=== PATIENT | male | born 1945 | race Caucasian/White ===

== ENCOUNTER → 2017-12-10 09:51 | Outpatient (CLI) | payer MEDICARE, SELFPAY ==
--- NOTE | 2017-12-10 09:57 | CT_ITS ---
CT lung screening EXAM: CT LUNG LOW DOSE WO CONTRAST COMPARISON: 11/09/2016 HISTORY: 71 year old male with greater than 30 pack-year smoking history, asymptomatic ITS.REASON: HX TOBACCO USE ORDERING PHYSICIAN: Morris Hines MD PATIENT AGE: 71 years TECHNIQUE: The exam was performed on a GE Light Speed [address] scanner using 2.90 mGy CTDI. A low dose helical CT CHEST was performed on a multi-detector scanner. All CT scans at the facility use one or more dose reduction, viz: automated exposure control; ma/kV adjustment per patient size (including targeted exams where dose is matched to indication; i.e. head); or iterative reconstruction technique. The LDCT was performed in a facility that meets the criteria for the screening program. Data regarding this exam was submitted to ACR which is an approved registry. The order for this exam indicates that it came as a result of a lung cancer screening counseling shard decision-making visit that included all the elements required of such a visit including smoking cessation. The radiologist interpreting this exam meets the CMS criteria for the LDCT lung cancer screening program. The exam is reported using the Lung-RADS classification scale and reported to the ACR registry. NOTE: This study was performed for the specific purposes of lung cancer screening and is not an alternative to diagnostic chest CT. RADIATION DOSE: CTDI vol(CT dose Index-volume) = 2.90mG DLP (Dose Length Product) = 101.48 mGcm FINDINGS: Centrilobular emphysema. Chronic irregular opacity left upper lobe stable and may represent postinflammatory fibrotic change. Calcified granuloma left lower lobe. No change 7 mm left upper lobe nodule. There is mild diffuse bronchial thickening. Decreased transverse diameter of the trachea once again noted and may represent tracheomalacia. Prior median sternotomy. Severe coronary artery calcifications. Gynecomastia. There is gas present throughout the length of the esophagus nonspecific but can be seen with reflux or distal obstruction versus esophageal dysmotility. IMPRESSION: 1. Lung RADS Category: 2, benign 2. 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 Gas within esophagus nonspecific but could be seen with dysmotility, distal obstruction, or reflux RECOMMENDATIONS: 12 month LDCT follow-up
--- NOTE | 2017-12-10 09:58 | US_ITS ---
US aorta HISTORY: ITS.REASON: HTN, HX TOBACCO USE, SCREENING FOR AA FINDINGS: The study is somewhat technically difficult due to patient's body habitus. No obvious aortic aneurysm apparent. The abdominal aorta measures approximately 2.5 cm at the level the umbilicus. Proximal common iliacs are unremarkable. IMPRESSION: No evidence of abdominal aortic aneurysm
== END ==
PROVIDERS: PCP Family Medicine; Visit Provider Family Medicine
DX: Z12.2 Encounter for screening for malignant neoplasm of respiratory organs (principal); Z87.891 Personal history of nicotine dependence; Z13.6 Encounter for screening for cardiovascular disorders; I10 Essential (primary) hypertension
CPT/HCPCS: 76770

== ENCOUNTER 2018-02-25 09:52 | Outpatient (RCR) | payer MEDICARE, SELFPAY | END 2018-11-27 13:22 | disposition home or self-care (01) | LOC: PT 09:52 | PROVIDERS: Visit Provider Internal Medicine | DX: Z95.5 Presence of coronary angioplasty implant and graft (principal) ==

== ENCOUNTER 2019-01-24 12:42 | Emergency (ER) | payer MEDICARE, SELFPAY ==
--- NOTE | 2019-01-24 12:48 | XR_ITS ---
XR chest portable HISTORY: Lumbar smoker, heart disease ITS.REASON: weak ORDERING PHYSICIAN: Tang Powers MD PATIENT AGE: 73 years COMPARISON: None FINDINGS: Prior CABG. Normal heart size. Lungs are clear of acute infiltrate. There is COPD. Nodularity noted in the right upper lobe overlying the third rib anteriorly at 12 x 8 mm possibly due to overlapping vessel. Upright PA and lateral chest suggested for further evaluation. There are mild fibrotic changes in the left lung base. No acute bony findings. IMPRESSION: COPD, prior CABG. Right suprahilar nodule versus overlapping vessel which may be better evaluated with upright PA and lateral chest
[2019-01-24 12:50] VITALS: BP 85/43; PULSE 89; O2SAT 98
--- NOTE | 2019-01-24 12:51 | HMH.EDGENADL ---
ED Disposition Clinical Impression: Melena Hypotension Qualifiers: Hypotension type: unspecified hypotension type Qualified Code(s): I95.9 - Hypotension, unspecified Disposition: Xfer Short-Term Hosp Condition on Discharge: Serious Referrals: Morris Hines MD [Primary Care Provider] - - Critical Care Critical Care Time: No Attestation: On , the high probability of a clinically significant, sudden or life threatening deterioration of the following system(s) required my full and direct attention, intervention and personal management. The time I documented below is in addition to time spent performing reported procedures but includes the following listed in this critical care notation. Medical Decision Making - Medical Records Medical records reviewed: Yes: I reviewed the patient's medical records. - Miki Inquiry Pt receiving controlled substance: No Vital Signs: 01/24/19 12:50 01/24/19 13:18 Temperature 97.7 F Temperature Source Oral Pulse Rate [Right Brachial] 89 89 Respiratory Rate 20 Blood Pressure [Right Arm] 85/43 L 73/38 L Blood Pressure Mean [Right Arm] 57 49 Blood Pressure Source [Right Arm] Automatic Cuff Blood Pressure Position [Right Arm] Sitting 02 Sat by Pulse Oximetry 98 98 Oxygen Delivery Method Room Air - Lab Data Lab results reviewed: Yes: I reviewed the patient's lab results. Lab Results 01/24/19 12:35: WBC 11.8 H, RBC 3.33 L, Hgb 10.8 L, Hct 31.3 L, MCV 93.9, MCH 32.2 H, MCHC 34.4, RDW 12.4, Plt Count 306, MPV 8.5, Neut % (Auto) 77.7, Lymph % (Auto) 16.5, [place] % (Auto) 4.7, Eos % (Auto) 0.5, Baso % (Auto) 0.5, Neut # (Auto) 9.1 H, Lymph # (Auto) 2.0, [place] # (Auto) 0.6, Eos # (Auto) 0.1, Baso # (Auto) 0.1 01/24/19 12:35: Sodium 131 L, Potassium 5.7 H, Chloride 95 L, Carbon Dioxide 29, Anion Gap 12.7, BUN 57 H, Creatinine 2.16 H, Estimated Creat Clear 38, Estimated GFR 30 L, Est GFR ( Amer) 36 L, Glucose 169 H, Calcium 8.9, Total Bilirubin 0.3, AST 12 L, ALT 24, Alkaline Phosphatase 55, Troponin I < 0.02, Total Protein 6.7, Albumin 3.5, Globulin 3.2, Albumin/Globulin Ratio 1.1, Lipase 314 01/24/19 12:35: PT 10.5, INR 1.01 01/24/19 12:35: Stool Occult Blood Positive A 01/24/19 13:20: Blood Type B Positive, Antibody Screen Negative, Crossmatch (AHG) See Detail 01/24/19 13:46: Lactate 2.7 H Result diagrams: 01/24/19 12:35 01/24/19 12:35 Orders (Tests/Meds): ED MEDICATIONS Generic Name Dose Route Start Last Admin Trade Name Freq PRN Reason Stop Dose Admin Sodium Chloride 250 mls @ 25 mls/hr 01/24/19 13:45 01/24/19 14:18 Sod Chlor 0.9% 250ml Bag IV 01/25/19 13:44 25 mls/hr .Q10H HUSSEIN Administration Norepinephrine Bitartrate 8 mg 258 mls @ 3.87 mls/hr 01/24/19 13:45 01/24/19 13:55 / Dextrose IV 02/23/19 13:44 2 mcg/min .Q24H HUSSEIN 3.87 mls/hr Administration Protocol 2 MCG/MIN Discontinued Medications Generic Name Dose Route Start Last Admin Trade Name Freq PRN Reason Stop Dose Admin Sodium Chloride 1,000 mls @ 999 mls/hr 01/24/19 13:00 01/24/19 13:24 Sod Chlor 0.9% 1000ml Bag IV 01/24/19 14:00 999 mls/hr .Q1H1M HUSSEIN Administration Pantoprazole Sodium 40 mg 01/24/19 12:49 01/24/19 13:44 Protonix 40mg Vial IV 01/24/19 12:50 40 mg ONCE ONE Administration Sodium Chloride 8 ml 01/24/19 12:49 01/24/19 13:44 Saline Flush 10ml Syringe IV 01/24/19 12:50 8 ml ONCE ONE Administration ORDERS Category Date Time Status Transfuse RBC's [Red Blood Cells] Stat BBK 01/24/19 13:20 Results Type and Screen Stat K 01/24/19 13:20 Results Urinalysis and Microscopic Stat Lab 01/24/19 12:49 Ordered - Radiology Data #1 Image(s): Chest Image Reviewed: Yes I have reviewed radiologist's interpretation Preliminary Findings: Abnormal (right lung nodule) - ECG Data Tracing #1 I reviewed this ECG and interpreted as documented below: Normal Sinus Rhythm: Yes (no stemi) Medical Decision Na
--- NOTE | 2019-01-24 12:54 | ED_ITS ---
ED Disposition Clinical Impression: Melena Hypotension Qualifiers: Hypotension type: unspecified hypotension type Qualified Code(s): I95.9 - Hypotension, unspecified Disposition: Xfer Short-Term Hosp Condition on Discharge: Serious Referrals: Morris Hines MD [Primary Care Provider] - - Critical Care Critical Care Time: No Attestation: On , the high probability of a clinically significant, sudden or life threatening deterioration of the following system(s) required my full and direct attention, intervention and personal management. The time I documented below is in addition to time spent performing reported procedures but includes the following listed in this critical care notation. Medical Decision Making - Medical Records Medical records reviewed: Yes: I reviewed the patient's medical records. - Miki Inquiry Pt receiving controlled substance: No Vital Signs: 01/24/19 12:50 01/24/19 13:18 Temperature 97.7 F Temperature Source Oral Pulse Rate [Right Brachial] 89 89 Respiratory Rate 20 Blood Pressure [Right Arm] 85/43 L 73/38 L Blood Pressure Mean [Right Arm] 57 49 Blood Pressure Source [Right Arm] Automatic Cuff Blood Pressure Position [Right Arm] Sitting 02 Sat by Pulse Oximetry 98 98 Oxygen Delivery Method Room Air - Lab Data Lab results reviewed: Yes: I reviewed the patient's lab results. Lab Results 01/24/19 12:35: WBC 11.8 H, RBC 3.33 L, Hgb 10.8 L, Hct 31.3 L, MCV 93.9, MCH 32.2 H, MCHC 34.4, RDW 12.4, Plt Count 306, MPV 8.5, Neut % (Auto) 77.7, Lymph % (Auto) 16.5, [place] % (Auto) 4.7, Eos % (Auto) 0.5, Baso % (Auto) 0.5, Neut # (Auto) 9.1 H, Lymph # (Auto) 2.0, [place] # (Auto) 0.6, Eos # (Auto) 0.1, Baso # (Auto) 0.1 01/24/19 12:35: Sodium 131 L, Potassium 5.7 H, Chloride 95 L, Carbon Dioxide 29, Anion Gap 12.7, BUN 57 H, Creatinine 2.16 H, Estimated Creat Clear 38, Estimated GFR 30 L, Est GFR ( Amer) 36 L, Glucose 169 H, Calcium 8.9, Total Bilirubin 0.3, AST 12 L, ALT 24, Alkaline Phosphatase 55, Troponin I < 0.02, Total Protein 6.7, Albumin 3.5, Globulin 3.2, Albumin/Globulin Ratio 1.1, Lipase 314 01/24/19 12:35: PT 10.5, INR 1.01 01/24/19 12:35: Stool Occult Blood Positive A 01/24/19 13:20: Blood Type B Positive, Antibody Screen Negative, Crossmatch (AH) See Detail 01/24/19 13:46: Lactate 2.7 H Result diagrams: 01/24/19 12:35 01/24/19 12:35 Orders (Tests/Meds): ED MEDICATIONS Generic Name Dose Route Start Last Admin Trade Name Freq PRN Reason Stop Dose Admin Sodium Chloride 250 mls @ 25 mls/hr 01/24/19 13:45 01/24/19 14:18 Sod Chlor 0.9% 250ml Bag IV 01/25/19 13:44 25 mls/hr .Q10H HUSSEIN Administration Norepinephrine Bitartrate 8 mg 258 mls @ 3.87 mls/hr 01/24/19 13:45 01/24/19 13:55 / Dextrose IV 02/23/19 13:44 2 mcg/min .Q24H HUSSEIN 3.87 mls/hr Administration Protocol 2 MCG/MIN Discontinued Medications Generic Name Dose Route Start Last Admin Trade Name Freq PRN Reason Stop Dose Admin Sodium Chloride 1,000 mls @ 999 mls/hr 01/24/19 13:00 01/24/19 13:24 Sod Chlor 0.9% 1000ml Bag IV 01/24/19 14:00 999 mls/hr .Q1H1M HUSSEIN Administration Pantopr
[2019-01-24 13:09] LABS: Occult Blood,Stool Positive (Negative)
[2019-01-24 13:10] LABS: Basophils # 0.1 K/mm3 (0-0.2); Basophils % 0.5 % (0.1-2.0); Eosinophils # 0.1 K/mm3 (0.0-0.4); Eosinophils % 0.5 % (0.1-12.0); Hematocrit 31.3 % (42.0-52.0); Hemoglobin 10.8 g/dL (14.1-18.0); Lymphocytes % 16.5 % (10-50); Mean Corpuscular HGB Conc 34.4 g/dL (31.8-35.4); Mean Corpuscular Hemoglobin 32.2 pg (27.0-31.2); Mean Corpuscular Volume 93.9 fl (80-94); Mean Platelet Volume 8.5 fl (7.4-10.4); Monocytes # 0.6 K/mm3 (0.1-1.0); Monocytes % 4.7 % (1.7-9.3); Neutrophils # 9.1 K/mm3 (1.8-7.8); Neutrophils % 77.7 % (37.0-80.0); Platelet Count 306 K/mm3 (142-424); Red Blood Count 3.33 M/mm3 (4.60-6.20); Red Cell Distribution Width 12.4 % (11.5-17.5); White Blood Count 11.8 K/mm3 (4.8-10.8)
[2019-01-24 13:14] VITALS: BP 72/32
[2019-01-24 13:18] VITALS: BP 73/38; PULSE 89; RESP 20; TEMP 36.5; O2SAT 98; BMI 34.0
[2019-01-24 13:18] LABS: INR 1.01 (0.9-1.1); Prothrombin Time 10.5 seconds (9.4-11.8)
[2019-01-24 13:24] LABS: Alanine Aminotransferase 24 U/L (12-78); Albumin Level 3.5 gm/dL (3.4-5.0); Albumin/Globulin Ratio 1.1 (1.1-1.8); Alkaline Phosphatase 55 U/L (46-116); Anion Gap 12.7 mEq/L (5-15); Aspartate Amino Transferase 12 U/L (15-37); Bilirubin,Total 0.3 mg/dL (0.2-1.0); Blood Urea Nitrogen 57 mg/dL (7-18); Calcium 8.9 mg/dL (8.5-10.1); Carbon Dioxide 29 mmol/L (21.0-32.0); Chloride 95 mmol/L (98-107); Creatinine Clearance Estimated 38 mL/min (50-200); Creatinine,Serum 2.16 mg/dL (0.70-1.30); Estimated Glomerular Filt Rate 30 ml/min (>60); GFR (African American) 36 ML/MIN (>60); Globulin 3.2 gm/dl (1.3-3.2); Glucose 169 mg/dL (74-106); Lipase 314 u/L (73-393); Potassium 5.7 mmoL/L (3.5-5.1); Sodium 131 mmol/L (136-145); Total Protein,Serum 6.7 gm/dL (6.4-8.2); Troponin I < 0.02 ng/ml (0.00-0.06)
[2019-01-24 13:30] VITALS: BP 69/32
--- NOTE | 2019-01-24 14:02 | PC.NURSE ---
[phone] Dr Hendricks paged. [phone] Dr Powers speaking with Dr Hendricks at this time. Dr Hendricks recommended Dr Kwon consult at this time.
[2019-01-24 14:10] LABS: Lactic Acid 2.7 mmol/L (0.4-2.0)
--- NOTE | 2019-01-24 14:18 | PC.NURSE ---
[facility] paged at [phone], per request for transfer to [facility] per dr headley recommendation. Dr Powers on hold with at this time.
--- NOTE | 2019-01-24 14:27 | PC.NURSE ---
received call from simran bed coordinator; pt is direct admit, 9th floor, [facility] a room 240 rather than than ed
--- NOTE | 2019-01-24 14:48 | PC.NURSE ---
Levophed titrated to 11.3 mld/hr due to hr of 68/38. pt states he feels fine at this time. After titrate bp is 84/48. Will continue to monitor
[2019-01-24 15:20] VITALS: BP 115/54; PULSE 73; RESP 18; TEMP 36.7; O2SAT 96
[2019-01-24 18:09] LABS: Reflex Lactic Add Lactic Reflex
== END 2019-01-24 15:47 | disposition short-term general hospital (02) ==
PROVIDERS: Emergency Provider Emergency Medicine Emergency Medical Services; PCP Family Medicine
DX: K92.1 Melena (principal); I95.9 Hypotension, unspecified; I25.10 Atherosclerotic heart disease of native coronary artery without angina pectoris; Z95.1 Presence of aortocoronary bypass graft; J44.9 Chronic obstructive pulmonary disease, unspecified; E78.5 Hyperlipidemia, unspecified; Z87.891 Personal history of nicotine dependence
CPT/HCPCS: 36415; 71045; 80053; 82272; 83605; 83690; 84484; 85025; 85610; 86850; 93005; 96365; 96366; 96367; 96375; 99285; G0328

== ENCOUNTER → 2019-06-05 10:12 | Outpatient (CLI) | payer MEDICARE, SELFPAY ==
--- NOTE | 2019-06-05 10:15 | CT_ITS ---
PROCEDURE: CT LUNG SCREENING CLINICAL INDICATION: HX TOBACCO USE One hundred eighty pack-year smoking history, asymptomatic for lung cancer COMPARISON: LUNGSCREEN CT lung screening from 12/10/2017 TECHNIQUE: The exam was performed on a GE [employer] Speed [address] scanner using 2.90 mGy CTDI. A low dose helical CT CHEST was performed on a multi-detector scanner. All CT scans at the facility use one or more dose reduction, viz: automated exposure control, ma/kV adjustment per patient size (including targeted exams where dose is matched to indication, i.e. head), or iterative reconstruction technique. The LDCT was performed in a facility that meets the criteria for the screening program. Data regarding this exam was submitted to ACR which is an approved registry. The order for this exam indicates that it came as a result of a lung cancer screening counseling shard decision-making visit that included all the elements required of such a visit including smoking cessation. The radiologist interpreting this exam meets the CMS criteria for the LDCT lung cancer screening program. The exam is reported using the Lung-RADS classification scale and reported to the ACR registry. NOTE: This study was performed for the specific purposes of lung cancer screening and is not an alternative to diagnostic chest CT. RADIATION DOSE: CTDI vol(CT dose Index-volume) = 2.90mG DLP (Dose Length Product) = 110.20 mGcm FINDINGS: COPD. Scattered fibrotic changes. There is a stable 6 mm nodule in the central aspect of the left upper lobe series 3, image 32. No additional nodules are evident. OTHER FINDINGS: Coronary artery calcifications. Gynecomastia. Prior CABG., Tracheomalacia, chronic bronchitis IMPRESSION: Lung rads category 2 benign findings Recommend 12 month LDCT follow-up Dictated by: William Ballard MD 06/07/2019 10:54 Electronically signed by William Ballard MD in [place] 06/07/2019 10:54
== END ==
PROVIDERS: PCP Family Medicine; Visit Provider Family Medicine
DX: Z87.891 Personal history of nicotine dependence (principal); Z12.2 Encounter for screening for malignant neoplasm of respiratory organs

== ENCOUNTER → 2020-03-29 10:14 | Outpatient (CLI) | payer MEDICARE, SELFPAY ==
[2020-03-29 11:05] LABS: Alanine Aminotransferase 110 U/L (12-78); Alkaline Phosphatase 67 U/L (38-126); Aspartate Amino Transferase 102 U/L (17-59); Bilirubin,Indirect 0.6 mg/dL (0.0-0.9); Bilirubin,Total 0.6 mg/dl (0.2-1.3); Bilirubin,Unconjugated 0.6 mg/dL (0.0-1.1); Cholesterol 154 mg/dl (140-200); Triglycerides 226 mg/dl (30-150); VLDL Cholesterol 45 mg/dL (0-40)
[2020-03-29 11:06] LABS: Albumin Level 4.3 g/dl (3.5-5.0); Chol/HDL Ratio 4.3 (1-3.5); HDL Cholesterol 36 mg/dl (40-60)
[2020-03-29 11:17] LABS: Direct LDL Cholesterol 100.42 mg/dL (100-129)
== END ==
PROVIDERS: Visit Provider Physician Assistant
DX: E78.2 Mixed hyperlipidemia (principal)
CPT/HCPCS: 36415; 80061; 80076

== ENCOUNTER → 2020-09-28 06:28 | Outpatient (CLI) | payer MEDICARE, SELFPAY ==
--- NOTE | 2020-09-28 06:31 | CA_ITS ---
APPROVED REPORT EXAM: Comprehensive 2D, Doppler, and color-flow Echocardiogram Asl Interpreter: Gely Cazares CRT Ht: 5 ft 2 in Wt: 199lbs BSA: 1.91 BP: 109/53 mmHg Indications: Abnormal ECG, Congestive Heart Failure, COPD, Shortness of Breath, Diabetes, CAD, Hyperlipidemia M-Mode Dimensions RVDd 2.98 cm (0.9-2.6) LA Diam 3.59 cm (1.9-4.0) LVDd 5.88 cm (3.5-5.7) Ao Diam 4.68 cm (2.0-3.7) LVDs 5.09 cm (3.5-5.7) IVSd 1.43 cm (0.6-1.1) PWd 0.68 cm (0.6-1.1) EF (Teich) 28.30% FS 13.40% EDV (Teich) 171.90 mL ESV (Teich) 123.20 mL LV Diastology E Decel Time 150.00 (160-240 msec) E/A Ratio 0.55 MED E' 9.70 (< 7 cm/sec) MED A' 14.60 cm/s E'/MED E' Ratio 4.31 (>14) LAT E' 8.80 (<10 cm/sec) LAT A' 10.80 cm/s E/LAT E' Ratio 4.75 (>14) Aortic Valve AO Peak GR. 4.20 mmHg Mitral Valve MV E Max Eugenio. 42.00 (40-130 cm/s) MV A Velocity 76.00 (40-130 cm/s) E/A Ratio 0.55 MV Decel. Time 150.00 (160-240 ms) MV PHT 44.00 ms Pulmonary Valve PV Peak Velocity 56.00 (50-150 cm/s) Tricuspid Valve TR P. Velocity 113.00 cm/s RAP Estimate 10.00 mmHg RVSP 15.10 mmHg Left Ventricle Left atrium is mildly enlarged, left ventricle is normal size, mild concentric left ventricular hypertrophy, visually estimated ejection fraction 55% with no regional wall motion abnormality, grade 1 diastolic dysfunction seen without tissue Doppler evidence of raise left atrial pressure. Right Ventricle Right atrium and right ventricle are mildly enlarged with normal contractility. Aortic Valve Aortic valve is minimally thickened and fibrosed, there is no aortic stenosis or aortic insufficiency. Mitral Valve Mitral valve is grossly normal, there is trace mitral regurgitation. Tricuspid Valve Tricuspid valve is grossly normal, there is trace tricuspid regurgitation. Pulmonic Valve Pulmonic valve is poorly visualized. Great Vessels Aortic root is normal size. Pericardium No significant pericardial effusion noted. Conclusion 1. Mild biatrial enlargement, normal left ventricular size, mild concentric left ventricular hypertrophy, visually estimated ejection fraction 55% with no regional wall motion abnormality. Grade 1 diastolic dysfunction seen without tissue Doppler evidence of raise left atrial pressure. 2. Mildly enlarged right ventricle with normal contractility. 3. Trace mitral and tricuspid regurgitation. 4. No significant pericardial effusion noted, there is anterior echo-free space seen. Electronically signed by : Cooper Arnett, 09/30/2020 10:50:56
--- NOTE | 2020-09-28 06:31 | CA_ITS ---
APPROVED REPORT Exam: Pharmacologic Technologist: Kourtney Lowery Ht: 5 ft 2 in Wt: 199 lbs BSA: 1.91 m2 HR: 74 bpm BP: 129/56 mmHg Indications: Shortness of Breath, Abnormal EKG Medical History Medications: Furosemide (LASIX),,,,, Aspirin,,,,, Metoprolol,,,,, Lovastatin,,,,, Metformin,,,,, Losartan,,,,, Pantoprazole,,,,, SpirOnolactone,,,,, Multivitamin,,,,, RIvaROXABAN,,,,, GlUCOnate,,,,, INCrUSE/Ellipta,,,,, Stress Test Details Test: LEXISCAN HR Resting HR: 82 bpm Max Heart Rate (APMHR): 144 bpm Max HR Achieved: 102 bpm Target HR (85% APMHR): 122 bpm % of APMHR: 70 Recovery HR: 91 bpm BP Resting BP: 129.0/56.0 mmHg Max BP: 133.0/56.0 mmHg Recovery BP: 126.0/58.0 mmHg ECG Resting ECG: Normal sinus rhythm, NS T wave abnormalities Clinical Exercise duration: 04:00 min Highest Stage Achieved: Exercise capacity: 1.0 METs Stress ECG Conclusion Symptoms: Shortness of air. No chest pain. Arrhythmias/Ectopy: None ST-T Changes: 0.5 - [address] depression inferiorly Conclusion: Non-diagnostic Lexiscan stress. Myoview images reported separately. Electronically signed by : Cooper Arnett, 09/29/2020 14:49:09
--- NOTE | 2020-09-28 06:31 | NM_ITS ---
APPROVED REPORT Exam: Nuclear Stress Test Indication: SOB, CAD, CABG, HTN, Abnomal EKG, DM, High cholesterol, Former tobacco use, Family history Patient Location: Outpatient Stress Tech: Kourtney Lowery ID Tech:Kia Alcantar, ARRT, RT (R)(N) Ht: 5 ft 2 in Wt: 196 lbs HR: 74 bpm BP: 129/56 mmHg BSA: 1.90 m2 BMI: 35.8 History: SOB, CAD, CABG, HTN, Abnomal EKG, DM, High cholesterol, Former tobacco use, Family history Procedure: Patient received a 0.4 mg of intravenous Lexiscan, resting heart rate 74 bpm, resting blood pressure 129/56 mmHg, with Lexiscan maximum heart rate achived was 96 bpm which is Less than 85 % of the maximum predicted heart rate and blood pressure was 133/56 mmHg. With Lexiscan, patient denied any complaint of chest pain. Electrocardiogram Resting electrocardiogram showed sinus rhythm nonspecific ST-T changes, with Lexiscan there is less than 1.[address] segment depression noted from the baseline EKG. The EKG portion of the Lexiscan is nondiagnostic. Cardiac Stress and Resting SPECT Images: Cardiac Stress and Resting SPECT images were obtained using technetium 99m Myoview 32.4 mCi stress and 10.28 mCi at rest. Gated SPECT for analysis of segmental wall motion and calculation of the ejection fraction also done. Cardiac stress and resting SPECT which show a fixed defect involving the inferoapical and anteroseptal wall consistent with area of myocardial scarring without significant pari-infarct ischemia. Computer derived ejection fraction is 60% with moderate inferoapical and anteroseptal wall hypokinesis. Right ventricle is normal size and contractility. Conclusion: 1. The EKG portion of the Lexiscan is nondiagnostic. 2. Scintigraphic evidence of nontransmural myocardial scarring involving the inferior apical and anteroseptal wall without significant pari-infarct ischemia, computer derived ejection fraction is 60% with segmental wall motion abnormality described above, right ventricle is normal size and contractility. 3. Abnormal Lexiscan Myoview study. Electronically signed by : Cooper Arnett, 09/29/2020 14:53:45
--- NOTE | 2020-09-28 08:27 | HMH.ITSHM ---
Current Home Medications as stated by this patient Geronimo Ramos or sales representative health insurance. []SPIRONOLACTONE RIVAROXBAN PANTOPRAZOLE MULTIVITAMIN METOPROLOL METFORMIN LOVASTATIN LOSARTAN FUROSEMIDE IRON ASA
== END ==
PROVIDERS: PCP Family Medicine; Visit Provider Nurse Practitioner Family
DX: E78.2 Mixed hyperlipidemia (principal); I10 Essential (primary) hypertension; I25.810 Atherosclerosis of coronary artery bypass graft(s) without angina pectoris; I27.20 Pulmonary hypertension, unspecified; J43.8 Other emphysema; R06.02 Shortness of breath; R94.31 Abnormal electrocardiogram [ECG] [EKG]; Z87.891 Personal history of nicotine dependence; Z95.1 Presence of aortocoronary bypass graft; E11.9 Type 2 diabetes mellitus without complications; Z79.84 Long term (current) use of oral hypoglycemic drugs
CPT/HCPCS: 78452; 93017; 93306; A9502; J2785

== ENCOUNTER → 2020-12-05 08:42 | Outpatient (CLI) | payer MEDICARE, SELFPAY ==
--- NOTE | 2020-12-05 08:44 | US_ITS ---
PROCEDURE: US ABDOMEN LIMITED CLINICAL INDICATION: ELEVATED LFT COMPARISON: No exams were available for comparison FINDINGS: PANCREAS: Unremarkable. No obvious mass or abnormal fluid collection. No ductal dilatation LIVER: Diffuse increased echogenicity of the liver with poor through transmission of sound consistent with hepatic steatosis. No focal liver lesion demonstrated. There is appropriate direction of blood flow within non dilated portal vein. RIGHT KIDNEY: Unremarkable. Normal size and echogenicity. No hydronephrosis GALLBLADDER: Multiple gallstones are present. No gallbladder wall thickening, pericholecystic fluid, or biliary dilatation is evident. IMPRESSION: Cholelithiasis. Fatty liver Dictated by: William Ballard MD 12/05/2020 11:53 William Ballard MD in [place] 12/05/2020 11:53
== END ==
PROVIDERS: PCP Family Medicine; Visit Provider Family Medicine
DX: R79.89 Other specified abnormal findings of blood chemistry (principal); R94.5 Abnormal results of liver function studies
CPT/HCPCS: 76705

== ENCOUNTER → 2021-04-03 09:49 | Outpatient (CLI) | payer MEDICARE, SELFPAY ==
--- NOTE | 2021-04-03 09:50 | US_ITS ---
PROCEDURE: US ABD. AORTA SCREENING CLINICAL INDICATION: History of CAD/CABG/former smoker COMPARISON: MR SURGEON/PRESIDENT/O MRI-L-SPINE W/O from 03/27/[address] lung screening from 12/10/2017 US AORTA US aorta from 12/10/2017 US US ABDOMEN LIMITED from 12/05/2020 FINDINGS: The abdominal aorta is normal in caliber at approximately 2 cm.. Study is somewhat limited due to patient's body habitus. The proximal common iliacs are not well delineated. Incidental note is made gallstones. IMPRESSION: No evidence of aortic aneurysm. Cholelithiasis Dictated by: William Ballard MD 04/03/2021 12:24 William Ballard MD in [place] 04/03/2021 12:24
--- NOTE | 2021-04-03 10:26 | CA_ITS ---
APPROVED REPORT Vault Installer: SLIME Laterality: Bilateral Indications: History of CAD/former smoker Risk Factors Hypertension: Hyperlipidemia Diabetes CAD, CABG, Hx smoking quit 10 years ago. Uses smokeless tobacco. Doppler Spectral Velocity Analysis ECA (R) 86.50/7.70 cm/s dICA (L) 104.60/27.00 cm/s Lidya (L) 111.70/29.40 cm/s dICA (R) 74.30/22.20 cm/s pICA (L) 161.10/31.70 cm/s Lidya (R) 87.30/20.70 cm/s pICA (R) 108.80/27.40 cm/s dCCA (L) 115.20/27.00 cm/s pCCA (L) 121.10/25.90 cm/s dCCA (R) 51.60/9.60 cm/s pCCA (R) 59.90/6.70 cm/s Vert (L) 32.90/9.40 cm/s Vert (R) 49.70/15.40 cm/s ICA/CCA 1.40 ICA/CCA 2.11 Findings Duplex evaluation demonstrates stenosis of the right proximal internal carotid artery <20%. Tortuous Rt ICA noted. Duplex evaluation demonstrates stenosis of the left proximal internal carotid artery in the range of 50-69%. Conclusion Duplex evaluation demonstrates stenosis of the right proximal internal carotid artery <20%. Tortuous Rt ICA noted. Duplex evaluation demonstrates stenosis of the left proximal internal carotid artery in the range of 50-69%. Electronically signed by : William Ballard MD 04/03/2021 16:31:47
== END ==
PROVIDERS: PCP Family Medicine; Visit Provider Physician Assistant
DX: E78.5 Hyperlipidemia, unspecified (principal); I10 Essential (primary) hypertension; I25.10 Atherosclerotic heart disease of native coronary artery without angina pectoris; I27.20 Pulmonary hypertension, unspecified; Z95.1 Presence of aortocoronary bypass graft; E11.9 Type 2 diabetes mellitus without complications; J44.9 Chronic obstructive pulmonary disease, unspecified; R06.00 Dyspnea, unspecified; R20.0 Anesthesia of skin; R20.2 Paresthesia of skin; R94.31 Abnormal electrocardiogram [ECG] [EKG]; Z87.891 Personal history of nicotine dependence; Z79.4 Long term (current) use of insulin; Z13.6 Encounter for screening for cardiovascular disorders
CPT/HCPCS: 76705; 93880

== ENCOUNTER → 2021-10-02 10:49 | Outpatient (CLI) | payer MEDICARE, SELFPAY ==
--- NOTE | 2021-10-02 10:50 | CA_ITS ---
FINAL REPORT TECHNIQUE: Color Doppler, duplex Doppler and dickinson scale sonography of the bilateral neck arterial vasculature was performed. Velocities were measured in the carotid arteries. Stenosis evaluation based on the validated velocity criteria. CLINICAL HISTORY: ANA MARÍA,HTN,DM,HLD,CAD,CABG,HX SMOKING COMPARISON: April 03, 2021 FINDINGS: The peak systolic velocity of the right common carotid artery is 74 cm/s. The peak systolic velocity of the right internal carotid artery is 116 cm/s and end diastolic velocity 21 cm/s. The ICA/CCA ratio is 1.8. A moderate amount of plaque is present. The right external carotid artery is patent. The right vertebral artery is patent with antegrade flow. The peak systolic velocity of the left common carotid artery is 111 cm/s. The peak systolic velocity of the left internal carotid artery is 191 cm/s and end diastolic velocity 30 cm/s. The ICA/CCA ratio is 1.9. A moderate amount of plaque is present. The left external carotid artery is patent.The left vertebral artery is patent with antegrade flow. IMPRESSION: Less than 50% right carotid stenosis. 50-69% left carotid stenosis. Velocities in the left ICA are slightly worse and may represent worsening stenosis. Recommend CTA or MRA for further evaluation. Bilateral patent vertebral arteries with antegrade flow. Reviewed, Interpreted and Dictated by Gerry Yee III, MD Transcribed by Laurie Vicente Authenticated by Gerry Yee III, MD on 10/02/2021 01:07:04 PM [facility]
== END ==
PROVIDERS: PCP Family Medicine; Visit Provider Urology
DX: R20.0 Anesthesia of skin (principal); R20.2 Paresthesia of skin
CPT/HCPCS: 93880

== ENCOUNTER → 2022-03-26 12:36 | Outpatient (CLI) | payer MEDICARE, SELFPAY ==
--- NOTE | 2022-03-26 12:56 | CA_ITS ---
FINAL REPORT TECHNIQUE: Color Doppler, duplex Doppler and dickinson scale sonography of the bilateral neck vasculature was performed. Velocities were measured in the carotid arteries. Stenosis evaluation based on velocity criteria. CLINICAL HISTORY: ANA MARÍA,HTN,EX SMOKER,CAD,DIZZINESS FINDINGS: The peak systolic velocity of the right common carotid artery is 74 cm/sec and internal carotid artery 110 cm/sec. The diastolic velocity in the internal carotid artery is 1 T1 cm/sec. The ICA/CCA ratio is 1.6. Visually, a L amount of plaque is seen. These findings are consistent with less than 50% stenosis. The external carotid artery is patent. The right vertebral artery is patent with antegrade flow. The peak systolic velocity of the left common carotid artery is 119 cm/sec and internal carotid artery 182 cm/sec. The diastolic velocity in the internal carotid artery is 31 cm/sec. The ICA/CCA ratio is 1.8. Visually, a mild to moderate amount of plaque is seen. These findings are consistent with 50-69% stenosis. The external carotid artery is patent. The left vertebral artery is patent with antegrade flow. IMPRESSION: Less than 50% right carotid stenosis. 50-69% left carotid stenosis. Bilateral patent vertebral arteries. If indicated, CTA or MRA could further evaluate. Reviewed, Interpreted and Dictated by Gerry Yee III, MD Transcribed by Ingrid Salter Authenticated and [facility]
== END ==
PROVIDERS: PCP Family Medicine; Visit Provider Nurse Practitioner
DX: R06.00 Dyspnea, unspecified (principal); R42 Dizziness and giddiness
CPT/HCPCS: 93880

== ENCOUNTER → 2023-04-18 08:30 | Outpatient (CLI) | payer OTHER, SELFPAY ==
--- NOTE | 2023-04-18 08:34 | CA_ITS ---
APPROVED REPORT EXAM: Comprehensive 2D, Doppler, and color-flow Echocardiogram Conventions Assistant: Brielle Ruiz RVT Ht: 5 ft 2 in Wt: 198lbs BSA: 1.90 BP: 147/69 mmHg Indications: CAD,ABN EKG,CHF,DM,SOA,COPD,HTN,HLD,PHTN 2D Dimensions LVOT 2.30 cm (M/F) 1.5-2.5 LA Volume 37.00 mL LA Volume Index 19.37 mL/m2 (M/F) 16-34 M-Mode Dimensions RVDd 3.28 cm (0.9-2.6) LA Diam 3.93 cm (1.9-4.0) LVDd 5.60 cm (3.5-5.7) Ao Diam 3.55 cm (2.0-3.7) LVDs 3.98 cm (3.5-5.7) IVSd 1.16 cm (0.6-1.1) PWd 0.85 cm (0.6-1.1) EF (Teich) 55.00% FS 28.90% EDV (Teich) 153.70 mL TAPSE 2.00 (<1.7) ESV (Teich) 69.20 mL LV Diastology E Decel Time 160.00 (160-240 msec) E/A Ratio 0.7 MED E' 7.00 (< 7 cm/sec) E'/MED E' Ratio 7.77 (>14) LAT E' 9.40 (<10 cm/sec) E/LAT E' Ratio 5.79 (>14) Aortic Valve AI PHT 533.00 ms AO Peak GR. 4.40 mmHg Mitral Valve MV E Max Eugenio. 54.00 (40-130 cm/s) MV A Velocity 78.00 (40-130 cm/s) E/A Ratio 0.70 MV Decel. Time 160.00 (160-240 ms) MV PHT 47.00 ms Pulmonary Valve PV Peak Velocity 72.00 (50-150 cm/s) Tricuspid Valve TR P. Velocity 220.00 cm/s RAP Estimate 10.00 mmHg RVSP 29.40 mmHg Left Ventricle The left ventricle is normal size. The left ventricular systolic function is low normal. The left ventricular ejection fraction is within the normal range. There is increased LV wall thickness. There is normal LV segmental wall motion. Transmitral Doppler flow pattern suggests impaired LV relaxation. LVEF is 50%. Right Ventricle The right ventricle is mildly dilated. The right ventricular systolic function is normal. Atria The left atrium size is normal. The right atrium size is normal. Aortic Valve The aortic valve is mildly thickened. There is no aortic valvular stenosis. Mild aortic regurgitation. Mitral Valve The mitral valve is normal in structure. No evidence of mitral valve stenosis. There is trace mitral valve regurgitation noted. Tricuspid Valve The tricuspid valve leaflets are thin and pliable. Trace tricuspid regurgitation. There is insufficient TR jet to estimate RVSP. Pulmonic Valve The pulmonary valve is normal in structure. Trace pulmonic regurgitation. Great Vessels The aortic root is normal in size. The ascending aorta is normal in size. IVC is normal in size and collapses >50% with inspiration. Pericardium There is no pericardial effusion. An epicardial fat pad is noted. Other Information Study Quality: Fair Conclusion Low-normal LV systolic function. Mildly dilated RV with normal RV function. No significant valvular disease. Electronically signed by : Anamaria Gillette, 04/19/2023 14:28:35
[2023-04-18 09:15] LABS: Microscopic, Urine URINE MICROSCOPIC (MICROSCOPIC)
[2023-04-18 10:19] LABS: Appearance,Urine CLEAR (Clear); Bilirubin,Urine Negative (Negative); Blood, Urine Negative (Negative); Color,Urine YELLOW (Yellow); Glucose,Urine (UA) Negative (Negative); Ketones,Urine Negative (Negative); Leukocyte Esterase,Urine Negative (Negative); Nitrate,Urine Negative (Negative); PH,Urine 7.5 (5.0-8.5); Protein,Urine TRACE (Negative)
[2023-04-18 10:51] LABS: Alanine Aminotransferase 30 U/L (12-78); Albumin Level 4.6 g/dl (3.5-5.0); Albumin/Globulin Ratio 1.5 (1.1-1.8); Alkaline Phosphatase 87 U/L (38-126); Anion Gap 14.9 mEq/L (5-15); Aspartate Amino Transferase 30 U/L (17-59); Bilirubin,Total 0.4 mg/dl (0.2-1.3); Blood Urea Nitrogen 17 mg/dl (9-20); Calcium 9.7 mg/dl (8.4-10.2); Carbon Dioxide 36 mmol/L (22.0-30.0); Chloride 94 mmol/L (98-107); Estimated Glomerular Filt Rate 65 ml/min (>60); GFR (African American) 78 ML/MIN (>60); Globulin 3.1 g/dL (1.3-3.2); Glucose 163 mg/dl (74-100); Potassium 4.9 mmoL/L (3.5-5.1); Sodium 140 mmol/L (136-145); Total Protein,Serum 7.7 g/dl (6.3-8.2)
[2023-04-18 11:27] LABS: Squamous Epithelial Cell,Urine Occasional #/hpf (0-5); WBC,Urine Occasional #/hpf (0-3)
== END ==
PROVIDERS: PCP Family Medicine; Visit Provider Chiropractor
DX: I25.10 Atherosclerotic heart disease of native coronary artery without angina pectoris (principal); E11.9 Type 2 diabetes mellitus without complications; Z79.84 Long term (current) use of oral hypoglycemic drugs
CPT/HCPCS: 36415; 80053; 81001; 93306

== ENCOUNTER → 2023-08-01 07:22 | Outpatient (CLI) | payer MEDICARE, SELFPAY | PROVIDERS: PCP Family Medicine; Visit Provider Physician Assistant | DX: E78.5 Hyperlipidemia, unspecified (principal); I10 Essential (primary) hypertension; I25.10 Atherosclerotic heart disease of native coronary artery without angina pectoris; I27.20 Pulmonary hypertension, unspecified; R42 Dizziness and giddiness; Z95.1 Presence of aortocoronary bypass graft | CPT/HCPCS: 93880 ==

== ENCOUNTER 2024-11-02 17:19 | Observation (INO) | payer MEDICARE, SELFPAY ==
[2024-11-02] VITALS (11 sets, daily range): BP systolic 96–128; BP diastolic 39–72; PULSE 75–103; RESP 11–22; TEMP 36.8–37.9; O2SAT 88–98; BMI 33.6; BMI 34.5
--- NOTE | 2024-11-02 17:43 | XR_ITS ---
PROCEDURE INFORMATION: Exam: XR Chest Exam date and time: 11/02/2024 5:53 PM Age: 78 years old Clinical indication: Other: Low o2 sat, congested cough TECHNIQUE: Imaging protocol: Radiologic exam of the chest. Views: 1 view. Total images: 1 COMPARISON: CT LUNG SCREENING 06/05/2019 11:06 AM FINDINGS: Lungs: Bibasilar subsegmental atelectasis, cannot exclude coexisting infiltrate. No pulmonary vascular congestion or interstitial edema. Lung apices are obscured by head neck structures. Pleural spaces: Unremarkable. No pleural effusion. No pneumothorax. Heart/Mediastinum: Unremarkable. No cardiomegaly. No mediastinal widening or hilar enlargement. Vasculature: Atherosclerotic aortic arch. Bones/joints: Status post median sternotomy. Other findings: Limited by patient position. IMPRESSION: Bibasilar subsegmental atelectasis. Cannot exclude coexisting bibasilar infiltrates.
--- NOTE | 2024-11-02 17:47 | ECG_ITS ---
APPROVED REPORT Exam: Resting ECG HR:103 bpm ECG Measurements Heart Rate 103 AXES AK 141 P 68 QRSd 117 QRS -60 QT 358 T 85 QTc 418 Conclusion SINUS TACHYCARDIA No acute STEMI Left anterior fascicular block Electronically signed by : GUILHERME DEL TORO, 11/02/2024 23:45:41
--- NOTE | 2024-11-02 17:51 | PC.NURSE ---
Lisa Hogan RN inserting IV and drawing blood cultures.
--- NOTE | 2024-11-02 18:05 | ED_ITS ---
<Statement entered by Mishel Alegre DO - 11/02/24 23:09> I was consulted by the SKIP, and we discussed the complexity of the problems being addressed. I approved the treatment and management plan for this patient's care in the emergency department, thus performing a substantive portion of the medical decision making. Patient was not given full sepsis bolus given history of heart failure as well as current respiratory failure, it was felt it would be detrimental. Mishel Alegre DO Discharge Plan Disposition Patient Disposition: Admitted Condition: Serious Clinical Impressions Clinical Impression: Severe sepsis without septic shock, Acute hypoxemic respiratory failure, Multifocal pneumonia Discharge ED Provider: Mishel Alegre General Adult HPI General Chief complaint: Upper Respiratory Infection Stated complaint: SOA, weak dizzy Time Seen by Provider: 11/02/24 18:04 Mode of Arrival: Ambulatory Source of Information: Patient Description of Symptoms (Recalled from ER Triage Doc. by RN): Pt presents for evaluation of cough and chest congestion. Pt has also had vomiting and diarrhea, decreased appetite. increased fatigue. O2 saturation noted to be 78% on room air in triage. Pt placed on NRB at 15L. O2 returns to 95% on NRB, pt remains with RN in triage room due to not having any rooms available at this time. History of Present Illness HPI narrative: Patient presents for evaluation of dyspnea congestion and productive cough. Patient is also had nausea vomiting and diarrhea. Symptoms reported began Saturday and have progressed. Patient was noted to be 78% on room air in triage. Patient does have a known history of agent orange exposure with chronic lung issues but is not currently on oxygen but does have oxygen at home. He reports fever but no chest pain hemoptysis hematochezia melena hematemesis hematuria. Related Data Home Medications ?Medication ?Instructions ?Recorded ?Confirmed aspirin 81 mg tablet,delayed 81 mg PO DAILY Heart disease 02/10/18 11/02/24 release (Adult Low Dose Aspirin) multivitamin 1 tab PO QAM Supplement 02/11/18 11/02/24 pantoprazole 40 mg tablet,delayed 40 mg PO DAILY 03/17/19 11/02/24 release (Protonix) rivaroxaban 2.5 mg tablet 2.5 mg PO BID 09/22/19 11/02/24 ferrous gluconate 324 mg (37.5 mg 324 mg PO Q OTHER DAY 03/22/20 11/02/24 iron) tablet spironolactone 50 mg tablet 50 mg PO DAILY 06/22/20 11/02/24 tiotropium 2.5 mcg-olodaterol 2.5 2.5 inh inhalation DAILY 01/04/21 11/02/24 mcg/actuation mist for inhalation ciclopirox 8 % topical solution 1 applic topical DAILY 04/19/21 11/02/24 guaifenesin 400 mg tablet 400 mg PO BID 09/20/21 11/02/24 losartan 50 mg tablet 50 mg PO DAILY 09/20/21 11/02/24 niacin 500 mg tablet 500 mg PO HS 09/20/21 11/02/24 ascorbate calcium (vitamin C) 500 500 mg PO DAILY 03/21/22 11/02/24 mg tablet cholecalciferol (vitamin D3) 25 25 mcg PO DAILY 03/21/22 11/02/24 mcg (1,000 unit) capsule zinc 50 mg tablet 50 mg PO DAILY 03/21/22 11/02/24 acetaminophen 650 mg 650 mg PO Q12H 09/24/22 11/02/24 tablet,extended release (Tylenol 8 Hour) furosemide 20 mg tablet (Lasix) 40 mg PO BID PRN Fluid 07/29/23 11/02/24 gabapentin 600 mg tablet 600 mg PO BID 07/30/24 11/02/24 metformin 500 mg tablet,extended 1,000 mg PO ONCE 07/30/24 11/02/24 release 24 hr krill oil 500 mg capsule 1,000 mg PO DAILY 11/02/24 11/02/24 metoprolol tartrate 50 mg tablet 50 mg PO DAILY 11/02/24 11/02/24 nitroglycerin 400 mcg/spray 0.4 mcg translingual NEEDED PRN 11/02/24 11/02/24 translingual chest pressure Previous Rx's ?Medication ?Instructions ?Recorded rosuvastatin 20 mg tablet See Rx Instructions .Route 07/31/23 .COMPLEX #90 tabs Allergies Allergy/AdvReac Type Severity Reaction Status Date / Time No Known Allergies Allergy Verified 11/02/24 18:18 [facility] Disclaimer: The information contained in this section may have been updated after the patient was seen, as this information can be updated by other users. Medical History (Updated 11/02/24 @ 21:48 by Luzmaria Mejia RN) Osteoarthritis History of heart attack Congestive heart failure Hypertension History of left heart catheterization Diabetes Surgical History (Updated 11/02/24 @ 21:48 by Luzmaria Mejia RN) History of open heart surgery Social History (Updated 11/02/24 @ 21:48 by Luzmaria Mejia RN) Smoking Status: Former smoker tobacco type: cigarettes alcohol intake: never substance use type: denies use current occupational status: retired Travel in the last 8 weeks: Inside the [place] household members: spouse housing: house current occupational exposures/hazards: No caffeine: No Have you lived/traveled outside [place] in past 30 days?: No Contact w/someone who lives/traveled outside US past 30 days?: No Exposure to someone with infectious disease in past 14 days?: No Do you have a fever (greater than 100.4 F or 38 C)?: No Have you tested positive for COVID-19: No Exposed to someone with COVID-19 in past 14 days?: No Do you have a sore throat?: No Do you have a cough?: No Do you have any weakness?: Yes Are you experiencing any nausea/vomitting?: Yes Do you have any diarrhea?: No Are you experiencing any unusual bleeding?: No Do you have any muscle aches/pain?: No Do you have any abdominal pain?: No Are you experiencing loss of taste or smell?: No Other Medical History Have you received the Flu Vaccine for this season: No Have you received the Pneumonia Vaccine: Yes ROS Obtained: Yes Systems reviewed as appropriate & no additional complaints except as documented Physical Exam General General appearance: alert and in no apparent distress Respiratory Respiratory exam: Present normal lung sounds bilaterally; Absent wheezes or accessory muscle use Cardiovascular Cardiovascular exam: Present regular rate Neurological Exam Neurological exam: Present alert Medical Decision Making Medical Records Medical records reviewed: Yes I reviewed the patient's medical records. Screening: Per USPSTF and CDC recommendations, given the prevalence of disease in our region, it is our hospital?s policy to screen for HIV and viral Hepatitis for all patients aged 18 and over and those with ongoing risk factors. Miki Inquiry Pt receiving controlled substance: No Vital Signs: 11/02/24 17:35 11/02/24 18:20 11/02/24 18:31 Temperature 100.2 F H Temperature Source Oral Pulse Rate 103 H 101 H Pulse Rate [Right] 77 Respiratory Rate 18 22 Blood Pressure 128/56 L 115/72 Blood Pressure [Right Arm] 111/50 L Blood Pressure Mean [Right Arm] 70 Blood Pressure Source [Right Arm] Automatic Cuff Blood Pressure Position [Right Arm] Sitting 02 Sat by Pulse Oximetry 98 88 L 88 L Oxygen Delivery Method Room Air Non-Rebreather Nasal Cannula Oxygen Flow Rate (LPM) 11/02/24 19:00 11/02/24 19:32 11/02/24 20:20 Temperature Temperature Source Pulse Rate 95 H 97 H 93 H Pulse Rate [Right] Respiratory Rate 11 L 18 Blood Pressure 123/53 L 119/45 L 97/39 L Blood Pressure [Right Arm] Blood Pressure Mean [Right Arm] Blood Pressure Source [Right Arm] Blood Pressure Position [Right Arm] 02 Sat by Pulse Oximetry 97 98 95 Oxygen Delivery Method Oxygen Flow Rate (LPM) 11/02/24 20:30 11/02/24 20:33 Temperature Temperature Source Pulse Rate 91 H Pulse Rate [Right] Respiratory Rate 19 Blood Pressure 96/40 L Blood Pressure [Right Arm] Blood Pressure Mean [Right Arm] Blood Pressure Source [Right Arm] Blood Pressure Position [Right Arm] 02 Sat by Pulse Oximetry 95 Oxygen Delivery Method Nasal Cannula Oxygen Flow Rate (LPM) 4 Lab Data Lab results reviewed: Yes I reviewed the patient's lab results. Lab Results 11/02/24 17:50: SARS-CoV-2 (PCR) Not detected, Influenza A Untype (PCR) Not detected, Influenza Type B (PCR) Not detected 11/02/24 17:55: WBC 21.6 H*, RBC 4.39 L, Hgb 13.4 L, Hct 41.8 L, MCV 95.2 H, MCH 30.5, MCHC 32.1, RDW 13.2, Plt Count 203, MPV 9.5, Neut % (Auto) 87.8 H, Lymph % (Auto) 4.7 L, [place] % (Auto) 6.8, Eos % (Auto) 0.1, Baso % (Auto) 0.2, Neut # (Auto) 19.0 H, Lymph # (Auto) 1.0, [place] # (Auto) 1.5 H, Eos # (Auto) 0.0, Baso # (Auto) 0.1, Total Counted 100, Neutrophils % (Manual) 92 H, Lymphocytes % (Manual) 3 L, Monocytes % (Manual) 5, Platelet Estimate Normal, RBC Morphology Normal, D-Dimer 0.31, VBG pH 7.40, VBG pCO2 49.0, VBG pO2 131.4 H, VBG HCO3 29.7, VBG Total CO2 31.2 H, VBG O2 Saturation 99.0 H, VBG Base Excess 4.9 H, VBG Lactic Acid 1.4, Sodium 138, Potassium 4.5, Chloride 95 L, Carbon Dioxide 38 H, Anion Gap 9.5, BUN 20, Creatinine 1.40 H, Estimated Creat Clear 50, Estimated GFR 49 L, Est GFR ( Amer) 59, Glucose 184 H, Lactate 1.6, Calcium 9.5, Total Bilirubin 0.9, AST 26, ALT 24, Alkaline Phosphatase 85, Troponin I < 0.01, NT-Pro-B Natriuret Pep 296, Total Protein 8.3 H, Albumin 4.7, Globulin 3.6 H, Albumin/Globulin Ratio 1.3 11/02/24 20:43: Urine Color Dark yellow, Urine Appearance Clear, Urine pH 5.0, Ur Specific [place] 1.020, Urine Protein Trace A, Urine Glucose (UA) Negative, Urine Ketones Trace, Urine Blood Negative, Urine Nitrate Negative, Urine Bilirubin Negative, Urine Urobilinogen 1.0, Ur Leukocyte Esterase Negative, Urine RBC 5-10, Urine WBC 5-10, Ur Squamous Epith Cells 3-5, Urine Bacteria 1+, Hyaline Casts 5-10, Fine Granular Casts 3-5 11/02/24 17:55 11/02/24 17:55 Orders (Tests/Meds): ED MEDICATIONS Generic Name Dose Route Start Last Admin Trade Name Freq PRN Reason Stop Dose Admin Acetaminophen 650 mg 11/02/24 21:38 Acetaminophen 325mg Tab PO 12/02/24 20:29 Q6HP PRN Fever or Mild Pain (1-3) Ceftriaxone Sodium 1 gm/ 50 mls @ 100 mls/hr 11/03/24 19:00 Sodium Chloride IV 11/12/24 18:59 Q24H HUSSEIN Sodium Chloride 10 ml 11/02/24 21:38 Sodium Chloride 0.9% 10ml Flush Syringe IV 12/02/24 17:41 NEEDED PRN Maintain IV Site Discontinued Medications Generic Name Dose Route Start Last Admin Trade Name Freq PRN Reason Stop Dose Admin Acetaminophen 1,000 mg 11/02/24 18:57 11/02/24 19:19 Acetaminophen 500mg Tab PO 11/02/24 18:58 1,000 mg ONCE ONE Administration Acetaminophen 650 mg 11/02/24 20:30 Acetaminophen 325mg Tab PO 12/02/24 20:29 Q6HP PRN Fever or Mild Pain (1-3) Albuterol/Ipratropium 3 ml 11/02/24 18:57 11/02/24 19:20 Ipratropium/Albuterol 3 Ml Neb IH 11/02/24 18:58 3 ml ONCE ONE Administration Dexamethasone Sodium Phosphate 10 mg 11/02/24 18:57 11/02/24 19:20 Dexamethasone 4mg/Ml 5ml Mdv IV 11/02/24 18:58 10 mg ONCE ONE Administration Lactated Ringer's 1,000 mls @ 999 mls/hr 11/02/24 18:30 11/02/24 18:45 Lactated Ringer's 1000 Ml Bag IV 11/02/24 19:30 999 mls/hr .Q1H1M ONE Administration Ceftriaxone Sodium 1 gm/ 50 mls @ 100 mls/hr 11/02/24 19:00 11/02/24 19:21 Sodium Chloride IV 11/12/24 18:59 100 mls/hr Q24H HUSSEIN Administration Azithromycin 500 mg/ Sodium 250 mls @ 250 mls/hr 11/02/24 18:59 11/02/24 19:19 Chloride IV 11/02/24 19:00 250 mls/hr ONCE ONE Administration Iopamidol 70 ml 11/02/24 20:12 11/02/24 20:13 Iopamidol-370 (76%);100ml Bottle IV 11/02/24 20:13 70 ml ONCE ONE Administration Sodium Chloride 10 ml 11/02/24 17:42 Sodium Chloride 0.9% 10ml Flush Syringe IV 12/02/24 17:41 NEEDED PRN Maintain IV Site Sodium Chloride 50 ml 11/02/24 20:12 11/02/24 20:12 0.9 % Sodium Chloride 50 Ml Vial IV 11/02/24 20:13 50 ml ONCE ONE Administration Sodium Chloride 10 ml 11/02/24 20:12 11/02/24 20:13 Sodium Chloride 0.9% 10ml Syr (Rad Only) IV 11/02/24 20:13 10 ml ONCE ONE Administration ORDERS Category Date Time Status CT angio chest PE protocol Stat Cat Scan 11/02/24 19:00 Completed XR chest portable Stat Exams 11/02/24 17:43 Completed BNP [NT Pro Brain Natriuretic Pep.] Stat Lab 11/02/24 17:55 Completed Complete Blood Count Auto Diff Stat Lab 11/02/24 17:55 Completed Comprehensive Metabolic Panel Stat Lab 11/02/24 17:55 Completed D-Dimer Stat Lab 11/02/24 17:55 Completed Full Resp Panel w/COVID ([facility]) Routine Lab 11/02/24 17:50 Received Lactic Acid Stat Lab 11/02/24 17:55 Completed Rapid PCR Covid and Flu A/B Stat Lab 11/02/24 17:50 Completed Trop I [Troponin I] Stat Lab 11/02/24 17:55 Completed Troponin I Q3H Lab 11/02/24 21:56 Received Troponin I Q3H Lab 11/03/24 00:45 Ordered UA [Urinalysis and Microscopic] Stat Lab 11/02/24 20:43 Completed Blood Culture Stat Micro 11/02/24 18:10 Received Urine Culture Stat Micro 11/02/24 20:43 Received Venous Blood Gas Stat RT 11/02/24 17:55 Completed Medical Decision Narrative: In summary patient is a 78-year-old male who presents to the emergency department for evaluation of dyspnea and cough and congestion hypoxia. Patient is initially with a blood pressure of 111/50 heart rate 77 respiratory rate is 18 satting at 98% on 15 L by nonrebreather mask but 78 on room air upon arrival, febrile at 100.2. Physical exam is remarkable for actually clear breath sounds heard to bases without adventitious sounds no increased work of breathing or accessory muscle use.. Differential diagnosis includes pneumonia versus PE versus COPD versus CHF etc. Initial workup will be conducted with hematologic labs VBG plain film chest x-ray CT PE protocol urinalysis full respiratory panel.. Initial interventions include supplemental O2 continuous pulse oximetry and cardiac monitoring DuoNeb Decadron sputum culture blood culture. Initial workup reviewed by me and patient's white count is 21.6 with an absolute neutrophil count of 19.0 VBG shows a pH of 7.4 VBG lactic acid 1.4 chemistries significant for a BUN of 20 creatinine 1.4 with a GFR of 49 urinalysis is significant for 5 red cells 3-5 white cells 5-10 epithelial cells 1+ bacteria and full respiratory panel was not resulted however COVID and flu are negative. My informed interpretation of his CT scan PE protocol shows no evidence of thrombus but shows multifocal pneumonia. Plain from chest x-ray is consistent with this as well. Given this I had an interactive discussion with Dr. Hendricks who is on for Dr. Hines about patient RAE findings and management and patient will be admitted for further evaluation and care.. I have initiated the patient on prophylactic commune acquired pneumonia antibiotics of Rocephin and Zithromax. Critical Care Critical Care Time Critical Care Time: Yes Attestation: On 11/02/24, the high probability of a clinically significant, sudden or life threatening deterioration of the following system(s) required my full and direct attention, intervention and personal management. The time I documented below is in addition to time spent performing reported procedures but includes the following listed in this critical care notation. Total Time Total Critical Care Time: 35
[2024-11-02 18:14] LABS: Adenovirus,PCR Not Detected (NotDetected); Bordetella Pertussis Not Detected (NotDetected); Chlamydophila Pneumoniae, PCR Not Detected (NotDetected); Coronavirus 19, PCR Not Detected (NotDetected); Coronavirus 229E Not Detected (NotDetected); Coronavirus NL63 Not Detected (NotDetected); Coronavirus OC43 Not Detected (NotDetected); Coronovirus HKU1,PCR Not Detected (NotDetected); Human Metapneumovirus Not Detected (NotDetected); Influenza A, PCR Not Detected (NotDetected); Influenza AH1, 2009 Not Detected (NotDetected); Influenza AH1, PCR Not Detected (NotDetected); Influenza AH3,PCR Not Detected (NotDetected); Influenza B, PCR Not Detected (NotDetected); Mycoplasma Pneumoniae, PCR Not Detected (NotDetected); Parainfluenza 1, PCR Not Detected (NotDetected); Parainfluenza 2, PCR Not Detected (NotDetected); Parainfluenza 3, PCR Not Detected (NotDetected); Parainfluenza 4, PCR Not Detected (NotDetected); Respiratory Syncytial Virus Not Detected (NotDetected); Rhinovirus/Enterovirus Not Detected (NotDetected)
[2024-11-02 18:15] LABS: Basophils # 0.1 K/mm3 (0-0.2); Basophils % 0.2 % (0.1-2.0); Eosinophils % 0.1 % (0.1-12.0); Hematocrit 41.8 % (42.0-52.0); Hemoglobin 13.4 g/dL (14.1-18.0); Lymphocytes % 4.7 % (10-50); Mean Corpuscular HGB Conc 32.1 g/dL (31.8-35.4); Mean Corpuscular Hemoglobin 30.5 pg (27.0-31.2); Mean Corpuscular Volume 95.2 fl (80-94); Mean Platelet Volume 9.5 fl (7.4-10.4); Monocytes # 1.5 K/mm3 (0.1-1.0); Monocytes % 6.8 % (1.7-9.3); Neutrophils % 87.8 % (37.0-80.0); Platelet Count 203 K/mm3 (142-424); Red Blood Count 4.39 M/mm3 (4.60-6.20); Red Cell Distribution Width 13.2 % (11.5-17.5); White Blood Count 21.6 K/mm3 (4.8-10.8)
[2024-11-02 18:16] LABS: MANUAL DIFFERENTIAL MANUAL DIFFERENTIAL (MANUAL DIFF)
[2024-11-02 18:19] LABS: Albumin Level 4.7 g/dl (3.5-5.0); Chloride 95 mmol/L (98-107); Potassium 4.5 mmoL/L (3.5-5.1); Sodium 138 mmol/L (136-145)
[2024-11-02 18:21] LABS: Blood Urea Nitrogen 20 mg/dl (9-20); Creatinine Clearance Estimated 50 mL/min (50-200); Estimated Glomerular Filt Rate 49 ml/min (>60); GFR (African American) 59 ML/MIN (>60)
[2024-11-02 18:22] LABS: Alanine Aminotransferase 24 U/L (12-78); Albumin/Globulin Ratio 1.3 (1.1-1.8); Alkaline Phosphatase 85 U/L (38-126); Anion Gap 9.5 mEq/L (5-15); Aspartate Amino Transferase 26 U/L (17-59); Bilirubin,Total 0.9 mg/dl (0.2-1.3); Calcium 9.5 mg/dl (8.4-10.2); Carbon Dioxide 38 mmol/L (22.0-30.0); Globulin 3.6 g/dL (1.3-3.2); Glucose 184 mg/dl (74-100); Total Protein,Serum 8.3 g/dl (6.3-8.2)
--- NOTE | 2024-11-02 18:30 | PC.NURSE ---
per er md patient has hx of heart failure so no sepsis fluid bolus at this time, see er md note
[2024-11-02] MEDS: LACTATED RINGERS 1000ML 1,000 ML 999 ML IV (18:45)
[2024-11-02 18:56] LABS: Lactate Venous 1.4 mmol/L (0.4-2.0); VBG Base Excess 4.9 mmol/L (-2.4-2.3); VBG HCO3 29.7 mmol/L (23-30); VBG PO2 131.4 mmol/L (28-40); VBG Total CO2 31.2 mmol/L (23-27)
--- NOTE | 2024-11-02 19:00 | CT_ITS ---
PROCEDURE INFORMATION: Exam: CTA Chest With Contrast Exam date and time: 11/02/2024 7:13 PM Age: 78 years old Clinical indication: Shortness of breath; Additional info: Sepsis, acute hypoxemic respiratory failure TECHNIQUE: Imaging protocol: Computed tomographic angiography of the chest with contrast. Exam focused on the arteries. 3D rendering (Not supervised by radiologist): MIP and/or 3D reconstructed images were created by the technologist. Total images: 825 Radiation optimization: All CT scans at this facility use at least one of these dose optimization techniques: automated exposure control; mA and/or kV adjustment per patient size (includes targeted exams where dose is matched to clinical indication); or iterative reconstruction. Contrast material: ISOVUE; Contrast volume: 70 ml; Contrast route: INTRAVENOUS (IV); COMPARISON: CR XR CHEST PORTABLE 11/02/2024 5:53 PM FINDINGS: Pulmonary arteries: Adequate contrast opacification of the pulmonary arteries. Main pulmonary artery is normal in caliber. No acute pulmonary emboli. Aorta: Atherosclerotic thoracic aorta without aneurysm or dissection. Two vessel aortic arch is a normal variant. Lungs: The trachea and main bronchi are patent. Bibasilar subsegmental atelectasis. Patchy scattered acute peribronchial infiltrates in the left greater than right lower lobe and throughout the left upper lobe. The right upper lobe and right middle lobe are clear. Subsegmental atelectasis inferior lingula. Infiltrates within the left upper lobe are nodular in appearance and some show cavitation. Pleural spaces: Unremarkable. No pneumothorax. No pleural effusion. Heart: Normal heart size. No pericardial effusion. Coronary arteries: Extensive coronary artery calcifications. Esophagus: Diffuse esophageal dilatation with diffuse esophageal wall thickening. Lymph nodes: Small scattered mediastinal lymph nodes are not pathologically enlarged. No hilar lymphadenopathy. Partially calcified left hilar lymph nodes compatible with remote granulomatous disease. Liver: Phase of contrast versus mild hepatic steatosis. Gallbladder and biliary ducts: Cholelithiasis. Spleen: Calcified splenic granuloma. Splenomegaly at 15 cm. Bones/joints: Moderate degenerative changes of the thoracic spine. Upper thoracic levocurvature. Status post median sternotomy. Soft tissues: Bilateral gynecomastia, right greater than left. IMPRESSION: 1. No acute pulmonary emboli. 2. Acute scattered peribronchial infiltrates in the left upper lobe and bilateral lower lobes. Infiltrates demonstrate nodular appearance and many display cavitation, consider septic emboli. 3. Diffuse esophageal dilatation and diffuse esophageal wall thickening implying esophagitis. 4. Bilateral lower lobe and inferior lingular subsegmental atelectasis. 5. Mild splenomegaly. 6. Cholelithiasis. 7. Bilateral gynecomastia. 8. Suspect mild hepatic steatosis.
[2024-11-02 19:13] LABS: Lactic Acid 1.6 mmol/L (0.7-2.1)
[2024-11-02 19:19] LABS: D-Dimer 0.31 ug/mL (0.0-0.5)
[2024-11-02] MEDS: AZITHROMYCIN 500 MG in 0.9 % SODIUM CHLORIDE 250 ML 250 MG IV (19:19)
[2024-11-02] MEDS: ACETAMINOPHEN 500MG TAB 1000 MG PO (19:19)
[2024-11-02] MEDS: DEXAMETHASONE 4MG/ML 5ML MDV 10 MG IV (19:20)
[2024-11-02] MEDS: IPRATROPIUM/ALBUTEROL 3 ML NEB IH (19:20)
[2024-11-02] MEDS: CEFTRIAXONE 1 GM 1 GM in 0.9 % SODIUM CHLORIDE 50 ML IV (19:21)
--- NOTE | 2024-11-02 19:31 | [facility].ITSTN ---
pt not ready for scan, breathing treatment just started per CARLA Meier. Will check back soon to see if finished.
[2024-11-02 19:37] LABS: NT Pro Brain Natriuretic Pep. 296 pg/mL (0-450)
[2024-11-02 19:42] LABS: Lymphocytes % 3 % (10-50); Monocytes % 5 % (2-9); Neutrophils % 92 % (42-76); Platelet Estimate Normal; RBC Morphology Normal; Total Cells Counted 100
[2024-11-02 19:57] LABS: Troponin I < 0.01 ng/ml (0.00-0.034)
[2024-11-02] MEDS: 0.9 % SODIUM CHLORIDE 50 ML VIAL IV (20:12)
[2024-11-02] MEDS: IOPAMIDOL-370 (76%);100ML BOTTLE 70 ML IV (20:13)
[2024-11-02] MEDS: SODIUM CHLORIDE 0.9% 10ML SYR (RAD ONLY) 10 ML IV (20:13)
--- NOTE | 2024-11-02 20:24 | PC.NURSE ---
pt back in room from CT at this time. pt tolerated well. family at bedside. call light in reach
--- NOTE | 2024-11-02 20:46 | PC.NURSE ---
called report to Kaylyn Mejia RN
[2024-11-02 20:50] LABS: Microscopic, Urine URINE MICROSCOPIC (MICROSCOPIC)
--- NOTE | 2024-11-02 20:54 | PC.NURSE ---
Pt transferred to floor via stretcher by PASQUALE
--- NOTE | 2024-11-02 21:00 | PC.NURSE ---
Patient arrived to floor via stretcher from ED at 20:53.
[2024-11-02 21:11] LABS: Appearance,Urine Clear (Clear); Color,Urine Dark Yellow (Yellow)
[2024-11-02 21:12] LABS: Blood, Urine Negative (Negative); Glucose,Urine (UA) Negative (Negative); Ketones,Urine Trace (Negative); Nitrate,Urine Negative (Negative); Protein,Urine Trace (Negative)
[2024-11-02 21:13] LABS: Bilirubin,Urine Negative (Negative); Leukocyte Esterase,Urine Negative (Negative)
[2024-11-02 22:13] LABS: Bacteria,Urine 1+ /lpf
[2024-11-02 22:58] LABS: Troponin I < 0.01 ng/ml (0.00-0.034)
[2024-11-03] VITALS (12 sets, daily range): BP systolic 109–118; BP diastolic 53–68; PULSE 70–87; RESP 16–22; TEMP 36.5–36.8; O2SAT 93–98; BMI 34.7
[2024-11-03 01:30] LABS: Troponin I < 0.01 ng/ml (0.00-0.034)
--- NOTE | 2024-11-03 05:29 | PC.NURSE ---
Alert and oriented since arriving to the floor. No complaints from patient. Weaned to 3.5L NC, O2 sat >90%. NSR on tele. Uses urinal. Bed alarm on. Call light in reach.
--- NOTE | 2024-11-03 07:56 | EXP.ACUTE.PN ---
Subjective *Date: 11/03/24 *Time: 07:56 Interval history: Patient admitted with bilateral pneumonia and hypoxia overnight. Medical Exam Vital signs and Labs for Last 24 Hours: Vital Signs Temp Pulse Pulse Resp BP BP Pulse Ox 11/03/24 06:49 11/03/24 05:00 11/03/24 04:00 80 11/03/24 04:00 97.7 F 76 17 111/57 L 96 11/03/24 03:00 11/03/24 01:06 93 L 11/03/24 01:00 11/03/24 00:00 75 11/03/24 00:00 97.9 F 74 16 109/53 L 94 L 11/02/24 23:00 11/02/24 22:35 75 11/02/24 21:07 98.2 F 89 18 110/52 L 95 11/02/24 21:05 95 11/02/24 21:01 100.2 F H 92 H 18 96/40 L 11/02/24 21:00 11/02/24 20:33 11/02/24 20:30 91 H 19 96/40 L 95 11/02/24 20:20 93 H 97/39 L 95 11/02/24 19:32 97 H 18 119/45 L 98 11/02/24 19:00 95 H 11 L 123/53 L 97 11/02/24 18:31 101 H 22 115/72 88 L 11/02/24 18:20 103 H 128/56 L 88 L 11/02/24 17:35 100.2 F H 77 18 111/50 L 98 O2 Del Method O2 Flow Rate 11/03/24 06:49 Nasal Cannula 3.5 11/03/24 05:00 Nasal Cannula 3.5 11/03/24 04:00 11/03/24 04:00 Nasal Cannula 4 11/03/24 03:00 Nasal Cannula 3.5 11/03/24 01:06 Nasal Cannula 3 11/03/24 01:00 Nasal Cannula 3 11/03/24 00:00 11/03/24 00:00 Nasal Cannula 4 11/02/24 23:00 Nasal Cannula 4 11/02/24 22:35 11/02/24 21:07 Nasal Cannula 4 11/02/24 21:05 Nasal Cannula 4 11/02/24 21:01 Nasal Cannula 5 11/02/24 21:00 Nasal Cannula 4 11/02/24 20:33 Nasal Cannula 4 11/02/24 20:30 11/02/24 20:20 11/02/24 19:32 11/02/24 19:00 11/02/24 18:31 Nasal Cannula 11/02/24 18:20 Non-Rebreather 11/02/24 17:35 Room Air Intake and Output 11/02/24 11/02/24 11/03/24 15:59 23:59 07:59 Intake Total 180 / 180 Output Total 250 / 250 Balance -70 / -70 Intake: Intake, Oral Amount 180 / 180 Output: Output, Urine Amount 250 / 250 Other: Weight 187 lb 11.2 oz 188 lb 12.8 oz Patient Weight 11/03/24 23:59 Weight 188 lb 12.8 oz Laboratory Results - last 24 hr 11/02/24 17:50: Chlamy pneumoniae PCR Not detected, Adenovirus (PCR) Not detected, B. pertussis DNA (PCR) Not detected, Coronavirus OC43 (PCR) Not detected, Coronavirus HKU1 (PCR) Not detected, Coronavirus 229E (PCR) Not detected, SARS-CoV-2 (PCR) Not detected 11/02/24 17:50: SARS-CoV-2 (PCR) Not detected, Coronavirus NL63 (PCR) Not detected, Human Metapneumovir PCR Not detected, Influenza A (H1) PCR Not detected, Influ A (H1N1/09) PCR Not detected, Influenza A (H3) PCR Not detected, Influenza Type A (PCR) Not detected, Influenza A Untype (PCR) Not detected, Influenza Type B (PCR) Not detected 11/02/24 17:50: Influenza Type B (PCR) Not detected, M. pneumoniae (PCR) Not detected, Parainfluenza 1 (PCR) Not detected, Parainfluenza 2 (PCR) Not detected, Parainfluenza 3 (PCR) Not detected, Parainfluenza 4 (PCR) Not detected, RSV (PCR) Not detected, Entero/Rhino (PCR) Not detected 11/02/24 17:55: WBC 21.6 H*, RBC 4.39 L, Hgb 13.4 L, Hct 41.8 L, MCV 95.2 H, MCH 30.5, MCHC 32.1, RDW 13.2, Plt Count 203, MPV 9.5, Neut % (Auto) 87.8 H, Lymph % (Auto) 4.7 L, [place] % (Auto) 6.8, Eos % (Auto) 0.1, Baso % (Auto) 0.2, Neut # (Auto) 19.0 H, Lymph # (Auto) 1.0, [place] # (Auto) 1.5 H, Eos # (Auto) 0.0, Baso # (Auto) 0.1, Total Counted 100, Neutrophils % (Manual) 92 H, Lymphocytes % (Manual) 3 L, Monocytes % (Manual) 5, Platelet Estimate Normal, RBC Morphology Normal, D-Dimer 0.31, VBG pH 7.40, VBG pCO2 49.0, VBG pO2 131.4 H, VBG HCO3 29.7, VBG Total CO2 31.2 H, VBG O2 Saturation 99.0 H, VBG Base Excess 4.9 H, VBG Lactic Acid 1.4, Sodium 138, Potassium 4.5, Chloride 95 L, Carbon Dioxide 38 H, Anion Gap 9.5, BUN 20, Creatinine 1.40 H, Estimated Creat Clear 50, Estimated GFR 49 L, Est GFR ( Amer) 59, Glucose 184 H, Lactate 1.6, Calcium 9.5, Total Bilirubin 0.9, AST 26, ALT 24, Alkaline Phosphatase 85, Troponin I < 0.01, NT-Pro-B Natriuret Pep 296, Total Protein 8.3 H, Albumin 4.7, Globulin 3.6 H, Albumin/Globulin Ratio 1.3 11/02/24 20:43: Urine Color Dark yellow, Urine Appearance Clear, Urine pH 5.0, Ur Specific [place] 1.020, Urine Protein Trace A, Urine Glucose (UA) Negative, Urine Ketones Trace, Urine Blood Negative, Urine Nitrate Negative, Urine Bilirubin Negative, Urine Urobilinogen 1.0, Ur Leukocyte Esterase Negative, Urine RBC 5-10, Urine WBC 5-10, Ur Squamous Epith Cells 3-5, Urine Bacteria 1+, Hyaline Casts 5-10, Fine Granular Casts 3-5 11/02/24 21:56: Troponin I < 0.01 11/03/24 00:50: Troponin I < 0.01 I & O for Labs for Last 24 Hours: Intake & Output 10/31/24 11/02/24 11/02/24 11/03/24 23:59 00:59 23:59 23:59 Intake Total 180 / 180 Output Total 250 / 250 Balance -70 / -70 Weight 187 lb 11.2 oz 188 lb 12.8 oz Constitutional: Present no acute distress Assessment and Plan *Assessment and plan (1) Multifocal pneumonia: Status: Acute Category: Medical Code(s): J18.9 - Pneumonia, unspecified organism (2) Acute hypoxemic respiratory failure: Status: Acute Category: Medical Code(s): J96.01 - Acute respiratory failure with hypoxia (3) Diabetic peripheral neuropathy: Status: Acute Category: Medical Code(s): E11.42 - Type 2 diabetes mellitus with diabetic polyneuropathy (4) Type 2 diabetes mellitus with hyperglycemia, without long-term current use of insulin: Status: Acute Category: Medical Code(s): E11.65 - Type 2 diabetes mellitus with hyperglycemia (5) COPD (chronic obstructive pulmonary disease): Status: Chronic Qualifiers: COPD type: emphysema Emphysema type: other Qualified Code(s): J43.8 - Other emphysema Category: Medical Code(s): J44.9 - Chronic obstructive pulmonary disease, unspecified (6) HLD (hyperlipidemia): Status: Chronic Qualifiers: Hyperlipidemia type: mixed hyperlipidemia Qualified Code(s): E78.2 - Mixed hyperlipidemia Category: Medical Code(s): E78.5 - Hyperlipidemia, unspecified (7) HTN (hypertension): Status: Chronic Qualifiers: Hypertension type: primary hypertension Qualified Code(s): I10 - Essential (primary) hypertension Category: Medical Code(s): I10 - Essential (primary) hypertension (8) CAD (coronary artery disease): Status: Chronic Qualifiers: Coronary Disease-Associated Artery/Lesion type: bypass graft [place] vs. transplanted heart: [place] heart Associated angina: without angina Qualified Code(s): I25.810 - Atherosclerosis of coronary artery bypass graft(s) without angina pectoris Category: Medical Code(s): I25.10 - Atherosclerotic heart disease of [place] coronary artery without angina pectoris Plan Patient admitted for further evaluation and treatment of his pneumonia with hypoxic resp. failure. H&P to follow.
--- NOTE | 2024-11-03 08:11 | HMH.PHAINT1 ---
Pharmacy Intervention Comments: HOME MEDICATION LIST DISCUSSED AND VERIFIED WITH PATIENT AND DAUGHTER. PROVIDED LIST OF MEDICATIONS TAKEN AT HOME.
--- NOTE | 2024-11-03 08:45 | EXP.HP ---
History of Present Illness *Admission Date: 11/02/24 *Reason for visit:: Shortness of breath *History of present illness: Mr. Ramos is an 78-year-old male with a history of coronary artery disease status post CABG and myocardial infarction in 1999, type 2 diabetes, hypertension, hyperlipidemia, peptic ulcer disease, COPD, pulmonary nodule, chronic back pain, colon polyps, upper GI bleed and duodenal ulcer who presented to [facility] emergency room for evaluation after experiencing shortness of breath and developing nausea and vomiting 11/02/2024. He states he was fine the previous day. He ate breakfast and went to [employer]anda[employer] and in the evening developed some nausea. He also developed a cough. He had felt fine prior to this. Bowels were moving normally, and he had been eating without difficulties. He does not think he had a fever but was also short of breath. He denies having chest pain. With evaluation in the emergency room he was found to have a fever of 100.2. White blood cell count was significant at 21,600. COVID and flu were negative. Chest CT showed multifocal pneumonia and plain chest films were also consistent with this. He was thus admitted for further evaluation and treatment and was started on Rocephin and Zithromax. In the emergency room he also received fluid boluses, dexamethasone 10 mg IV and DuoNeb treatments and acetaminophen. This a.m. patient states he feels much better. He was able to eat all of his breakfast without any problems. He denies shortness of breath and chest pain. He continues with a congested cough. O2 sats are in the 90's on 3.5 LPM. [facility] Disclaimer: The information contained in this section may have been updated after the patient was seen, as this information can be updated by other users. Medical History (Updated 11/03/24 @ 07:58 by Morris Hines MD) CAD (coronary artery disease) HLD (hyperlipidemia) COPD (chronic obstructive pulmonary disease) Type 2 diabetes mellitus Obesity (BMI 30-39.9) Osteoarthritis History of heart attack Congestive heart failure Hypertension History of left heart catheterization Surgical History (Updated 11/02/24 @ 21:48 by Luzmaria Mejia RN) History of open heart surgery Social History (Updated 11/02/24 @ 21:48 by Luzmaria Mejia RN) Smoking Status: Former smoker tobacco type: cigarettes alcohol intake: never substance use type: denies use current occupational status: retired Travel in the last 8 weeks: Inside the [place] household members: spouse housing: house current occupational exposures/hazards: No caffeine: No Have you lived/traveled outside [place] in past 30 days?: No Contact w/someone who lives/traveled outside [place] past 30 days?: No Exposure to someone with infectious disease in past 14 days?: No Do you have a fever (greater than 100.4 F or 38 C)?: No Have you tested positive for COVID-19: No Exposed to someone with COVID-19 in past 14 days?: No Do you have a sore throat?: No Do you have a cough?: No Do you have any weakness?: Yes Are you experiencing any nausea/vomitting?: Yes Do you have any diarrhea?: No Are you experiencing any unusual bleeding?: No Do you have any muscle aches/pain?: No Do you have any abdominal pain?: No Are you experiencing loss of taste or smell?: No Other Medical History Have you received the Flu Vaccine for this season: Yes Have you received the Pneumonia Vaccine: Yes Review of Systems Constitutional Constitutional: Denies anorexia, Denies body ache(s), Denies chills, Denies fever(s), Reports frequent falls and Denies headache(s) Eyes Eyes: Denies change in vision ENT Ears, Nose, Mouth, and Throat: Denies dizziness, Denies otalgia, Denies headache(s), Reports post nasal drip and Denies sore throat *Cardiovascular Cardiovascular: Denies chest pain, Reports dyspnea and Denies palpitations *Respiratory Respiratory: Reports chest congestion, Reports cough, Reports dyspnea and Denies hemoptysis *Gastrointestinal Gastrointestinal: Denies abdominal pain, Reports change in stool character, Reports nausea and Reports vomiting *Genitourinary Genitourinary: Denies difficulty urinating and Denies dysuria *Musculoskeletal Musculoskeletal: Reports abnormal gait and Reports back pain *Neurologic Neurologic: Reports abnormal gait, Denies dizziness, Reports frequent falls and Denies headache(s) Endocrine Endocrine: Denies palpitations Meds Home Medications and Allergies Home Medications ?Medication ?Instructions ?Recorded ?Confirmed ?Type aspirin 81 mg tablet,delayed 81 mg PO DAILY 02/10/18 11/02/24 History release (Adult Low Dose Aspirin) multivitamin 1 tab PO DAILY 02/11/18 11/03/24 History pantoprazole 40 mg tablet,delayed 40 mg PO DAILY 03/17/19 11/02/24 History release (Protonix) rivaroxaban 2.5 mg tablet 2.5 mg PO BID 09/22/19 11/02/24 History ferrous gluconate 324 mg (37.5 mg 324 mg PO Q48H 03/22/20 11/03/24 History iron) tablet spironolactone 50 mg tablet 50 mg PO DAILY 06/22/20 11/02/24 History tiotropium 2.5 mcg-olodaterol 2.5 2.5 inh inhalation DAILY 01/04/21 11/02/24 History mcg/actuation mist for inhalation guaifenesin 400 mg tablet 400 mg PO BID 09/20/21 11/02/24 History losartan 50 mg tablet 50 mg PO DAILY 09/20/21 11/02/24 History niacin 500 mg tablet 500 mg PO HS 09/20/21 11/03/24 History ascorbate calcium (vitamin C) 500 500 mg PO DAILY 03/21/22 11/03/24 History mg tablet cholecalciferol (vitamin D3) 25 25 mcg PO DAILY 03/21/22 11/03/24 History mcg (1,000 unit) capsule zinc 50 mg tablet 50 mg PO DAILY 03/21/22 11/03/24 History acetaminophen 650 mg 650 mg PO Q12H 09/24/22 11/03/24 History tablet,extended release (Tylenol 8 Hour) furosemide 20 mg tablet (Lasix) 40 mg PO BID 07/29/23 11/02/24 History gabapentin 600 mg tablet 600 mg PO BID 07/30/24 11/02/24 History metformin 500 mg tablet,extended 1,000 mg PO DAILY 07/30/24 11/03/24 History release 24 hr krill oil 500 mg capsule 1,000 mg PO DAILY 11/02/24 11/02/24 History nitroglycerin 400 mcg/spray 0.4 mcg translingual NEEDED PRN 11/02/24 11/02/24 History translingual chest pressure rosuvastatin 20 mg tablet 20 mg PO HS 11/03/24 11/03/24 History New Prescriptions to Start Prescriptions: Allergies Allergy/AdvReac Type Severity Reaction Status Date / Time No Known Allergies Allergy Verified 11/02/24 18:18 Exam Data for Last 24 hours Vital signs and Labs for Last 24 Hours: Temp Pulse Resp BP Pulse Ox O2 Del Method O2 Flow Rate 98.1 F 82 16 117/53 L 98 Nasal Cannula 3.5 11/03/24 07:57 11/03/24 07:57 11/03/24 07:57 11/03/24 07:57 11/03/24 07:57 11/03/24 07:57 11/03/24 07:57 Laboratory Results - last 24 hr 11/02/24 17:50: Chlamy pneumoniae PCR Not detected, Adenovirus (PCR) Not detected, B. pertussis DNA (PCR) Not detected, Coronavirus OC43 (PCR) Not detected, Coronavirus HKU1 (PCR) Not detected, Coronavirus 229E (PCR) Not detected, SARS-CoV-2 (PCR) Not detected 11/02/24 17:50: SARS-CoV-2 (PCR) Not detected, Coronavirus NL63 (PCR) Not detected, Human Metapneumovir PCR Not detected, Influenza A (H1) PCR Not detected, Influ A (H1N1/09) PCR Not detected, Influenza A (H3) PCR Not detected, Influenza Type A (PCR) Not detected, Influenza A Untype (PCR) Not detected, Influenza Type B (PCR) Not detected 11/02/24 17:50: Influenza Type B (PCR) Not detected, M. pneumoniae (PCR) Not detected, Parainfluenza 1 (PCR) Not detected, Parainfluenza 2 (PCR) Not detected, Parainfluenza 3 (PCR) Not detected, Parainfluenza 4 (PCR) Not detected, RSV (PCR) Not detected, Entero/Rhino (PCR) Not detected 11/02/24 17:55: WBC 21.6 H*, RBC 4.39 L, Hgb 13.4 L, Hct 41.8 L, MCV 95.2 H, MCH 30.5, MCHC 32.1, RDW 13.2, Plt Count 203, MPV 9.5, Neut % (Auto) 87.8 H, Lymph % (Auto) 4.7 L, [place] % (Auto) 6.8, Eos % (Auto) 0.1, Baso % (Auto) 0.2, Neut # (Auto) 19.0 H, Lymph # (Auto) 1.0, [place] # (Auto) 1.5 H, Eos # (Auto) 0.0, Baso # (Auto) 0.1, Total Counted 100, Neutrophils % (Manual) 92 H, Lymphocytes % (Manual) 3 L, Monocytes % (Manual) 5, Platelet Estimate Normal, RBC Morphology Normal, D-Dimer 0.31, VBG pH 7.40, VBG pCO2 49.0, VBG pO2 131.4 H, VBG HCO3 29.7, VBG Total CO2 31.2 H, VBG O2 Saturation 99.0 H, VBG Base Excess 4.9 H, VBG Lactic Acid 1.4, Sodium 138, Potassium 4.5, Chloride 95 L, Carbon Dioxide 38 H, Anion Gap 9.5, BUN 20, Creatinine 1.40 H, Estimated Creat Clear 50, Estimated GFR 49 L, Est GFR ( Amer) 59, Glucose 184 H, Lactate 1.6, Calcium 9.5, Total Bilirubin 0.9, AST 26, ALT 24, Alkaline Phosphatase 85, Troponin I < 0.01, NT-Pro-B Natriuret Pep 296, Total Protein 8.3 H, Albumin 4.7, Globulin 3.6 H, Albumin/Globulin Ratio 1.3 11/02/24 20:43: Urine Color Dark yellow, Urine Appearance Clear, Urine pH 5.0, Ur Specific [place] 1.020, Urine Protein Trace A, Urine Glucose (UA) Negative, Urine Ketones Trace, Urine Blood Negative, Urine Nitrate Negative, Urine Bilirubin Negative, Urine Urobilinogen 1.0, Ur Leukocyte Esterase Negative, Urine RBC 5-10, Urine WBC 5-10, Ur Squamous Epith Cells 3-5, Urine Bacteria 1+, Hyaline Casts 5-10, Fine Granular Casts 3-5 11/02/24 21:56: Troponin I < 0.01 11/03/24 00:50: Troponin I < 0.01 I & O for Last 24 hours: Intake & Output 10/31/24 11/01/24 11/02/24 11/03/24 11:59 12:59 11:59 11:59 Intake Total 538 / 538 Output Total 250 / 250 Balance 288 / 288 Weight 188 lb 12.8 oz Constitutional Constitutional: no acute distress Comments: Sitting up in the bed and he has completed all of his breakfast. He appears most comfortable without dyspnea *Routine HEENT Exam Head: Present normocephalic and atraumatic Eye: Present PERRL; Absent conjunctival icterus, scleral injection or conjunctivae pink ENT: Present mucous membranes moist and oropharynx clear *Routine Neck Exam Neck: Present supple and full ROM; Absent lymphadenopathy, thyromegaly or tenderness *Routine Respiratory Exam Respiratory: Present rhonchi (Just a few soft scattered rhonchi) and diminished air movement *Routine Cardiovascular Exam Cardiovascular: Present RRR *Routine Abdominal Exam Abdominal: Present soft and normoactive bowel sounds; Absent tenderness, distended or guarding *Routine Rectal Exam Rectal:: deferred *Routine Genitalia Exam Genitalia:: deferred *Routine Extremities Exam Extremities: Present pulses intact; Absent edema or calf tenderness *Routine Neurological Exam Neurological: Present alert and oriented X3 Assessment and Plan *Assessment and plan (1) Multifocal pneumonia: Status: Acute Category: Medical Code(s): J18.9 - Pneumonia, unspecified organism (2) Acute hypoxemic respiratory failure: Status: Acute Category: Medical Code(s): J96.01 - Acute respiratory failure with hypoxia (3) Diabetic peripheral neuropathy: Status: Acute Category: Medical Code(s): E11.42 - Type 2 diabetes mellitus with diabetic polyneuropathy (4) Type 2 diabetes mellitus with hyperglycemia, without long-term current use of insulin: Status: Acute Category: Medical Code(s): E11.65 - Type 2 diabetes mellitus with hyperglycemia (5) COPD (chronic obstructive pulmonary disease): Status: Chronic Qualifiers: COPD type: emphysema Emphysema type: other Qualified Code(s): J43.8 - Other emphysema Category: Medical Code(s): J44.9 - Chronic obstructive pulmonary disease, unspecified (6) HLD (hyperlipidemia): Status: Chronic Qualifiers: Hyperlipidemia type: mixed hyperlipidemia Qualified Code(s): E78.2 - Mixed hyperlipidemia Category: Medical Code(s): E78.5 - Hyperlipidemia, unspecified (7) HTN (hypertension): Status: Chronic Qualifiers: Hypertension type: primary hypertension Qualified Code(s): I10 - Essential (primary) hypertension Category: Medical Code(s): I10 - Essential (primary) hypertension (8) CAD (coronary artery disease): Status: Chronic Qualifiers: Associated angina: without angina Coronary Disease-Associated Artery/Lesion type: bypass graft [place] vs. transplanted heart: [place] heart Qualified Code(s): I25.810 - Atherosclerosis of coronary artery bypass graft(s) without angina pectoris Category: Medical Code(s): I25.10 - Atherosclerotic heart disease of [place] coronary artery without angina pectoris Plan Patient admitted for further evaluation and treatment of his pneumonia with hypoxic resp. failure. He is on Rocephin and Zithromax. DuoNeb treatments have been added. Dr. Hines entry - Saw patient, agree with above note.
[2024-11-03] MEDS: ENOXAPARIN 40MG/0.4ML SYRINGE 40 MG SUBCUT (09:01)
[2024-11-03] MEDS: IPRATROPIUM/ALBUTEROL 3 ML NEB IH ×3 (11:11→23:26)
[2024-11-03 11:31] LABS: POC Glucose,Bedside 137 (70-110)
[2024-11-03 16:31] LABS: POC Glucose,Bedside 159 (70-110)
[2024-11-03] MEDS: humaLOG 100 UNITS/ML 10ML VIAL (SSI) SUBCUT ×2 (16:35→20:17)
--- NOTE | 2024-11-03 17:06 | PC.NURSE ---
a&ox4. ambulates with standby assistance to BR and uses urinal. weaned to 3lnc with sats >90%. no complaints of pain. intermittent productive cough. sputum sent this shift. abx given per oct. no needs at this time. call light within reach.
[2024-11-03] MEDS: CEFTRIAXONE 1 GM 1 GM in 0.9 % SODIUM CHLORIDE 50 ML IV (18:42)
[2024-11-03] MEDS: AZITHROMYCIN 500 MG in 0.9 % SODIUM CHLORIDE 250 ML 250 MG IV (20:16)
[2024-11-03] MEDS: GUAIFENESIN/DEXTROMETHORPHAN 200MG/20MG 10ML UDC 10 ML PO (22:11)
[2024-11-04] VITALS (11 sets, daily range): BP systolic 120–157; BP diastolic 55–74; PULSE 78–110; RESP 16–18; TEMP 36.6–37.2; O2SAT 88–95; BMI 35.0
[2024-11-04 01:45] LABS: POC Glucose,Bedside 171 (70-110)
--- NOTE | 2024-11-04 04:30 | PC.NURSE ---
Pt A&OX4 and has tolerated 2L nasal cannula. Lung sounds clear but diminished and bowel sounds active. He has received IV ABX. He has had a productive cough this shift. Using urinal to urinate. No complaints at this time, call light within reach.
[2024-11-04 06:03] LABS: Basophils % 0.1 % (0.1-2.0); Eosinophils % 0.1 % (0.1-12.0); Hematocrit 35.8 % (42.0-52.0); Hemoglobin 11.4 g/dL (14.1-18.0); Lymphocytes # 1.6 K/mm3 (0.7-4.5); Mean Corpuscular HGB Conc 31.8 g/dL (31.8-35.4); Mean Corpuscular Hemoglobin 30.2 pg (27.0-31.2); Mean Platelet Volume 9.7 fl (7.4-10.4); Monocytes # 1.1 K/mm3 (0.1-1.0); Monocytes % 6.8 % (1.7-9.3); Neutrophils # 13.5 K/mm3 (1.8-7.8); Neutrophils % 82.4 % (37.0-80.0); Platelet Count 176 K/mm3 (142-424); Red Blood Count 3.77 M/mm3 (4.60-6.20); Red Cell Distribution Width 13.2 % (11.5-17.5); White Blood Count 16.4 K/mm3 (4.8-10.8)
[2024-11-04 06:05] LABS: MANUAL DIFFERENTIAL MANUAL DIFFERENTIAL (MANUAL DIFF)
[2024-11-04 06:11] LABS: POC Glucose,Bedside 134 (70-110)
[2024-11-04 06:22] LABS: Anion Gap 11.3 mEq/L (5-15); Blood Urea Nitrogen 18 mg/dl (9-20); Calcium 8.6 mg/dl (8.4-10.2); Carbon Dioxide 30 mmol/L (22.0-30.0); Chloride 97 mmol/L (98-107); Creatinine Clearance Estimated 72 mL/min (50-200); Estimated Glomerular Filt Rate 81 ml/min (>60); GFR (African American) 98 ML/MIN (>60); Glucose 127 mg/dl (74-100); Potassium 4.3 mmoL/L (3.5-5.1); Sodium 134 mmol/L (136-145)
[2024-11-04] MEDS: IPRATROPIUM/ALBUTEROL 3 ML NEB IH ×4 (06:44→23:27)
[2024-11-04 07:06] LABS: Lymphocytes % 13 % (10-50); Monocytes % 3 % (2-9); Neutrophils % 84 % (42-76); Total Cells Counted 100
[2024-11-04 07:07] LABS: Platelet Estimate Normal; RBC Morphology Normal
[2024-11-04] MEDS: ENOXAPARIN 40MG/0.4ML SYRINGE 40 MG SUBCUT (08:10)
--- NOTE | 2024-11-04 08:29 | EXP.ACUTE.PN ---
Subjective *Date: 11/04/24 *Time: 08:51 Interval history: The patient is feeling better this morning. He is sitting up in the chair and ate a good breakfast. He did not sleep well. Medical Exam Vital signs and Labs for Last 24 Hours: Vital Signs Temp Pulse Pulse Resp BP Pulse Ox O2 Del Method 11/04/24 08:00 97.9 F 96 H 17 132/55 L 95 Nasal Cannula 11/04/24 06:44 87 11/04/24 06:44 86 11/04/24 06:44 91 L Nasal Cannula 11/04/24 05:00 Nasal Cannula 11/04/24 04:00 80 11/04/24 04:00 98.1 F 82 18 120/59 L 94 L Nasal Cannula 11/04/24 03:00 Nasal Cannula 11/04/24 01:00 Nasal Cannula 11/04/24 00:00 90 11/04/24 00:00 97.9 F 92 H 16 123/56 L 92 L Nasal Cannula 11/03/24 23:27 87 11/03/24 23:27 85 11/03/24 23:00 Nasal Cannula 11/03/24 21:00 Nasal Cannula 11/03/24 20:00 Nasal Cannula 11/03/24 20:00 98.3 F 87 18 109/59 L 93 L Nasal Cannula 11/03/24 20:00 80 11/03/24 18:55 Nasal Cannula 11/03/24 18:06 84 11/03/24 18:06 84 11/03/24 18:06 97 Nasal Cannula 11/03/24 17:56 98.0 F 82 22 113/61 95 Nasal Cannula 11/03/24 17:00 Nasal Cannula 11/03/24 16:00 80 11/03/24 15:00 Nasal Cannula 11/03/24 13:00 Nasal Cannula 11/03/24 12:00 70 11/03/24 12:00 97.9 F 84 21 118/68 94 L Nasal Cannula 11/03/24 11:13 80 11/03/24 11:13 80 11/03/24 11:00 Nasal Cannula 11/03/24 09:00 Nasal Cannula O2 Flow Rate 11/04/24 08:00 2 11/04/24 06:44 11/04/24 06:44 11/04/24 06:44 2 11/04/24 05:00 2 11/04/24 04:00 11/04/24 04:00 2 11/04/24 03:00 2 11/04/24 01:00 2 11/04/24 00:00 11/04/24 00:00 2 11/03/24 23:27 11/03/24 23:27 11/03/24 23:00 2 11/03/24 21:00 2 11/03/24 20:00 2 11/03/24 20:00 2 11/03/24 20:00 11/03/24 18:55 2 11/03/24 18:06 11/03/24 18:06 11/03/24 18:06 3 11/03/24 17:56 3 11/03/24 17:00 3 11/03/24 16:00 11/03/24 15:00 3.5 11/03/24 13:00 3.5 11/03/24 12:00 11/03/24 12:00 11/03/24 11:13 11/03/24 11:13 11/03/24 11:00 3.5 11/03/24 09:00 3.5 Intake and Output 11/03/24 11/04/24 11/04/24 19:59 03:59 11:59 Intake Total 780 / 1630 450 / 1630 400 / 1630 Output Total 400 / 1325 250 / 1325 675 / 1325 Balance 380 / 305 200 / 305 -275 / 305 Intake: Intake, Oral Amount 780 / 1380 200 / 1380 400 / 1380 Intake, Total IV Amount 250 / 250 Azithromycin 500 mg In 0.9 % 250 / 250 Sodium Chloride 250 ml @ 250 mls/hr IV Q24H [facility] Rx#:[id number] Output: Output, Urine Amount 400 / 1325 250 / 1325 675 / 1325 Other: Number of Unmeasured Voids 2 1 1 Number of Bowel Movements 1 Weight 190 lb 6.4 oz Patient Weight 11/04/24 11:59 Weight 190 lb 6.4 oz Laboratory Results - last 24 hr 11/03/24 11:13: POC Glucose 137 H 11/03/24 16:15: POC Glucose 159 H 11/03/24 20:04: POC Glucose 171 H 11/04/24 05:30: WBC 16.4 H, RBC 3.77 L, Hgb 11.4 L, Hct 35.8 L, MCV 95.0 H, MCH 30.2, MCHC 31.8, RDW 13.2, Plt Count 176, MPV 9.7, Neut % (Auto) 82.4 H, Lymph % (Auto) 10.0, [place] % (Auto) 6.8, Eos % (Auto) 0.1, Baso % (Auto) 0.1, Neut # (Auto) 13.5 H, Lymph # (Auto) 1.6, [place] # (Auto) 1.1 H, Eos # (Auto) 0.0, Baso # (Auto) 0.0, Total Counted 100, Neutrophils % (Manual) 84 H, Lymphocytes % (Manual) 13, Monocytes % (Manual) 3, Platelet Estimate Normal, RBC Morphology Normal, Sodium 134 L, Potassium 4.3, Chloride 97 L, Carbon Dioxide 30, Anion Gap 11.3, BUN 18, Creatinine 0.90 D, Estimated Creat Clear 72, Estimated GFR 81, Est GFR ( Amer) 98 D, Glucose 127 H, Calcium 8.6 11/04/24 05:54: POC Glucose 134 H I & O for Labs for Last 24 Hours: Intake & Output 11/01/24 11/02/24 11/03/24 11/04/24 12:59 11:59 11:59 11:59 Intake Total 778 / 778 1630 / 1630 Output Total 400 / 400 1325 / 1325 Balance 378 / 378 305 / 305 Weight 188 lb 12.8 oz 190 lb 6.4 oz Microbiology Reports for the Last 24 Hours: Microbiology 11/02/24 18:10 Blood Blood Culture - Preliminary NO GROWTH AFTER 24 HOURS 11/02/24 17:55 Blood Blood Culture - Preliminary NO GROWTH AFTER 24 HOURS 11/03/24 10:36 Sputum - Expectorated Sputum Gram Stain - Final Constitutional: Present no acute distress Respiratory: Present decreased breath sounds and wheezes Cardiac: Present Reg Rate and Rhythm GI: Present soft; Absent distention or tenderness Extremities: Present edema (trace bilateral) Skin: Present intact Neuro: Present alert, awake and oriented x 3 Assessment and Plan *Assessment and plan (1) Multifocal pneumonia: Status: Acute Category: Medical Code(s): J18.9 - Pneumonia, unspecified organism (2) Acute hypoxemic respiratory failure: Status: Acute Category: Medical Code(s): J96.01 - Acute respiratory failure with hypoxia (3) Diabetic peripheral neuropathy: Status: Acute Category: Medical Code(s): E11.42 - Type 2 diabetes mellitus with diabetic polyneuropathy (4) Type 2 diabetes mellitus with hyperglycemia, without long-term current use of insulin: Status: Acute Category: Medical Code(s): E11.65 - Type 2 diabetes mellitus with hyperglycemia (5) COPD (chronic obstructive pulmonary disease): Status: Chronic Qualifiers: COPD type: emphysema Emphysema type: other Qualified Code(s): J43.8 - Other emphysema Category: Medical Code(s): J44.9 - Chronic obstructive pulmonary disease, unspecified (6) HLD (hyperlipidemia): Status: Chronic Qualifiers: Hyperlipidemia type: mixed hyperlipidemia Qualified Code(s): E78.2 - Mixed hyperlipidemia Category: Medical Code(s): E78.5 - Hyperlipidemia, unspecified (7) HTN (hypertension): Status: Chronic Qualifiers: Hypertension type: primary hypertension Qualified Code(s): I10 - Essential (primary) hypertension Category: Medical Code(s): I10 - Essential (primary) hypertension (8) CAD (coronary artery disease): Status: Chronic Qualifiers: Associated angina: without angina Coronary Disease-Associated Artery/Lesion type: bypass graft [place] vs. transplanted heart: [place] heart Qualified Code(s): I25.810 - Atherosclerosis of coronary artery bypass graft(s) without angina pectoris Category: Medical Code(s): I25.10 - Atherosclerotic heart disease of [place] coronary artery without angina pectoris Plan Patient's white blood cell count is improving. Will continue antibiotics, nebs, and oxygen and await sputum culture results. Dr. Hines entry - Saw patient, agree with above note.
[2024-11-04] MEDS: humaLOG 100 UNITS/ML 10ML VIAL (SSI) SUBCUT ×2 (10:33→16:18)
[2024-11-04 10:35] LABS: POC Glucose,Bedside 169 (70-110)
--- NOTE | 2024-11-04 11:16 | PC.NURSE ---
pt was weaned to room air and was tolerating well at 91% while awake. When pt dozed off his 02 sat dropped and maintained at 88%. Pt placed back on 1L nasal cannula while asleep.
[2024-11-04 16:21] LABS: POC Glucose,Bedside 154 (70-110)
--- NOTE | 2024-11-04 16:32 | PC.NURSE ---
Pt has done well this shift. Ambulating with standby assist. VSS. He has been weaned down to 1L nasal cannula. no c/o pain, N/V/D this shift. States that he feels much better today.
[2024-11-04] MEDS: CEFTRIAXONE 1 GM 1 GM in 0.9 % SODIUM CHLORIDE 50 ML IV (18:08)
[2024-11-04 20:20] LABS: POC Glucose,Bedside 131 (70-110)
[2024-11-04] MEDS: AZITHROMYCIN 500 MG in 0.9 % SODIUM CHLORIDE 250 ML 250 MG IV (20:21)
[2024-11-05] VITALS (11 sets, daily range): BP systolic 112–189; BP diastolic 52–82; PULSE 79–90; RESP 15–19; TEMP 36.4–36.8; O2SAT 91–97; BMI 35.0; BMI 34.9
[2024-11-05 05:39] LABS: POC Glucose,Bedside 139 (70-110)
[2024-11-05] MEDS: IPRATROPIUM/ALBUTEROL 3 ML NEB IH ×3 (05:56→18:16)
--- NOTE | 2024-11-05 06:44 | PC.NURSE ---
Pt is alert and oriented x4 and currently tolerating 1L O2 at this time. Pt lungs remain diminished. RT removed O2 this am and pt began to desat in low 80s, 1L applied. Pt admits to feeling somewhat better this morning. Pt denies pain and has had no acute changes this shift.
[2024-11-05 06:46] LABS: Basophils % 0.3 % (0.1-2.0); Eosinophils # 0.1 K/mm3 (0.0-0.4); Eosinophils % 0.7 % (0.1-12.0); Hematocrit 35.7 % (42.0-52.0); Lymphocytes # 1.1 K/mm3 (0.7-4.5); Lymphocytes % 11.5 % (10-50); Mean Corpuscular HGB Conc 30.8 g/dL (31.8-35.4); Mean Corpuscular Hemoglobin 29.6 pg (27.0-31.2); Mean Platelet Volume 9.8 fl (7.4-10.4); Monocytes # 0.9 K/mm3 (0.1-1.0); Monocytes % 9.6 % (1.7-9.3); Neutrophils # 7.1 K/mm3 (1.8-7.8); Neutrophils % 77.2 % (37.0-80.0); Platelet Count 208 K/mm3 (142-424); Red Blood Count 3.72 M/mm3 (4.60-6.20); Red Cell Distribution Width 13.1 % (11.5-17.5); White Blood Count 9.2 K/mm3 (4.8-10.8)
--- NOTE | 2024-11-05 06:57 | P.PN_ITS ---
Subjective *Date: 11/05/24 *Time: 06:57 Interval history: Patient with no new complaints today. He was weaned down to 1 L/min of supplemental oxygen yesterday. States he feels better. Medical Exam Vital signs and Labs for Last 24 Hours: Vital Signs Temp Pulse Pulse Resp BP Pulse Ox O2 Del Method 11/05/24 06:47 Nasal Cannula 11/05/24 05:56 79 11/05/24 05:56 83 11/05/24 05:56 97 Nasal Cannula 11/05/24 05:00 Nasal Cannula 11/05/24 04:00 98.1 F 82 18 127/61 94 L Nasal Cannula 11/05/24 04:00 80 11/05/24 03:00 Nasal Cannula 11/05/24 01:00 Nasal Cannula 11/05/24 00:00 97.8 F 83 16 112/52 L 11/05/24 00:00 80 11/04/24 23:29 92 H 11/04/24 23:29 89 11/04/24 23:00 Nasal Cannula 11/04/24 21:00 Nasal Cannula 11/04/24 20:00 Nasal Cannula 11/04/24 20:00 90 11/04/24 20:00 98.9 F 95 H 18 137/64 94 L Nasal Cannula 11/04/24 18:28 85 11/04/24 18:28 87 11/04/24 18:28 92 L Nasal Cannula 11/04/24 18:26 Nasal Cannula 11/04/24 17:00 Nasal Cannula 11/04/24 16:00 90 11/04/24 16:00 98.4 F 88 16 157/74 H 91 L Room Air 11/04/24 15:00 Room Air 11/04/24 13:03 Nasal Cannula 11/04/24 12:00 90 11/04/24 12:00 98 F 89 16 130/60 94 L Nasal Cannula 11/04/24 11:16 88 L Room Air 11/04/24 10:58 78 11/04/24 10:58 80 11/04/24 10:58 91 L Room Air 11/04/24 10:49 Room Air 11/04/24 09:00 Nasal Cannula 11/04/24 08:10 Nasal Cannula 11/04/24 08:00 110 H 11/04/24 08:00 97.9 F 96 H 17 132/55 L 95 Nasal Cannula O2 Flow Rate 11/05/24 06:47 1 11/05/24 05:56 11/05/24 05:56 11/05/24 05:56 2 11/05/24 05:00 1 11/05/24 04:00 2 11/05/24 04:00 11/05/24 03:00 1 11/05/24 01:00 1 11/05/24 00:00 11/05/24 00:00 11/04/24 23:29 11/04/24 23:29 11/04/24 23:00 1 11/04/24 21:00 1 11/04/24 20:00 1 11/04/24 20:00 11/04/24 20:00 2 11/04/24 18:28 11/04/24 18:28 11/04/24 18:28 2 11/04/24 18:26 1 11/04/24 17:00 1 11/04/24 16:00 11/04/24 16:00 11/04/24 15:00 11/04/24 13:03 1 11/04/24 12:00 11/04/24 12:00 11/04/24 11:16 11/04/24 10:58 11/04/24 10:58 11/04/24 10:58 11/04/24 10:49 91 11/04/24 09:00 1.5 11/04/24 08:10 1.5 11/04/24 08:00 11/04/24 08:00 2 Intake and Output 11/04/24 11/04/24 11/05/24 15:59 23:59 07:59 Intake Total 670 / 1850 360 / 1850 370 / 370 Output Total 150 / 1125 200 / 1125 400 / 400 Balance 520 / 725 160 / 725 -30 / -30 Intake: Intake, Oral Amount 670 / 1350 360 / 1350 120 / 120 Intake, Total IV Amount 250 / 250 Azithromycin 500 mg In 0.9 % 250 / 250 Sodium Chloride 250 ml @ 250 mls/hr IV Q24H [facility] Rx#:[id number] Output: Output, Urine Amount 150 / 1125 200 / 1125 400 / 400 Other: Number of Unmeasured Voids 1 0 1 Number of Bowel Movements 1 Weight 190 lb 6.577 oz Patient Weight 11/05/24 23:59 Weight 190 lb 6.577 oz Laboratory Results - last 24 hr 11/04/24 05:30: Total Counted 100, Neutrophils % (Manual) 84 H, Lymphocytes % (Manual) 13, Monocytes % (Manual) 3, Platelet Estimate Normal, RBC Morphology Normal 11/04/24 10:25: POC Glucose 169 H 11/04/24 16:14: POC Glucose 154 H 11/04/24 20:12: POC Glucose 131 H 11/05/24 05:17: WBC 9.2 D, RBC 3.72 L, Hgb 11.0 L, Hct 35.7 L, MCV 96.0 H, MCH 29.6, MCHC 30.8 L, RDW 13.1, Plt Count 208, MPV 9.8, Neut % (Auto) 77.2, Lymph % (Auto) 11.5, [place] % (Auto) 9.6 H, Eos % (Auto) 0.7, Baso % (Auto) 0.3, Neut # (Auto) 7.1, Lymph # (Auto) 1.1, [place] # (Auto) 0.9, Eos # (Auto) 0.1, Baso # (Auto) 0.0 11/05/24 05:33: POC Glucose 139 H I & O for Labs for Last 24 Hours: Intake & Output 11/02/24 11/03/24 11/04/24 11/05/24 23:59 23:59 23:59 23:59 Intake Total 1558 / 2008 1480 / 1850 370 / 370 Output Total 800 / 900 1125 / 1125 400 / 400 Balance 758 / 1108 355 / 725 -30 / -30 Weight 187 lb 11.2 oz 188 lb 12.8 oz 190 lb 6.4 oz 190 lb 6.577 oz Microbiology Reports for the Last 24 Hours: Microbiology 11/02/24 18:10 Blood Blood Culture - Preliminary NO GROWTH AFTER 48 HOURS 11/02/24 17:55 Blood Blood Culture - Preliminary NO GROWTH AFTER 48 HOURS 11/03/24 10:36 Sputum - Expectorated Sputum Gram Stain - Final 11/03/24 10:36 Sputum - Expectorated Sputum Sputum Culture - Preliminary Constitutional: Present no acute distress Respiratory: Present decreased breath sounds Cardiac: Present Reg Rate and Rhythm GI: Present soft; Absent distention or tenderness Extremities: Present edema (trace bilateral) Skin: Present intact Neuro: Present alert, awake and oriented x 3 Assessment and Plan *Assessment and plan (1) Multifocal pneumonia: Status: Acute Category: Medical Code(s): J18.9 - Pneumonia, unspecified organism (2) Acute hypoxemic respiratory failure: Status: Acute Category: Medical Code(s): J96.01 - Acute respiratory failure with hypoxia (3) Diabetic peripheral neuropathy: Status: Acute Category: Medical Code(s): E11.42 - Type 2 diabetes mellitus with diabetic polyneuropathy (4) Type 2 diabetes mellitus with hyperglycemia, without long-term current use of insulin: Status: Acute Category: Medical Code(s): E11.65 - Type 2 diabetes mellitus with hyperglycemia (5) COPD (chronic obstructive pulmonary disease): Status: Chronic Qualifiers: COPD type: emphysema Emphysema type: other Qualified Code(s): J43.8 - Other emphysema Category: Medical Code(s): J44.9 - Chronic obstructive pulmonary disease, unspecified (6) HLD (hyperlipidemia): Status: Chronic Qualifiers: Hyperlipidemia type: mixed hyperlipidemia Qualified Code(s): E78.2 - Mixed hyperlipidemia Category: Medical Code(s): E78.5 - Hyperlipidemia, unspecified (7) HTN (hypertension): Status: Chronic Qualifiers: Hypertension type: primary hypertension Qualified Code(s): I10 - Essential (primary) hypertension Category: Medical Code(s): I10 - Essential (primary) hypertension (8) CAD (coronary artery disease): Status: Chronic Qualifiers: Coronary Disease-Associated Artery/Lesion type: bypass graft [place] vs. transplanted heart: [place] heart Associated angina: without angina Qualified Code(s): I25.810 - Atherosclerosis of coronary artery bypass graft(s) without angina pectoris Category: Medical Code(s): I25.10 - Atherosclerotic heart disease of [place] coronary artery without angina pectoris Plan Morning labs are pending, patient is improving, continue to wean supplemental oxygen down and off.
[2024-11-05 07:25] LABS: Anion Gap 10.2 mEq/L (5-15); Blood Urea Nitrogen 12 mg/dl (9-20); Calcium 8.8 mg/dl (8.4-10.2); Carbon Dioxide 31 mmol/L (22.0-30.0); Chloride 100 mmol/L (98-107); Creatinine Clearance Estimated 72 mL/min (50-200); Estimated Glomerular Filt Rate 93 ml/min (>60); GFR (African American) 113 ML/MIN (>60); Glucose 128 mg/dl (74-100); Potassium 4.2 mmoL/L (3.5-5.1); Sodium 137 mmol/L (136-145)
[2024-11-05] MEDS: ENOXAPARIN 40MG/0.4ML SYRINGE 40 MG SUBCUT (08:22)
[2024-11-05 11:37] LABS: POC Glucose,Bedside 139 (70-110)
[2024-11-05] MEDS: RIVAROXABAN 2.5MG TABLET 2.5 MG PO ×2 (12:37→20:07)
[2024-11-05 16:55] LABS: POC Glucose,Bedside 146 (70-110)
--- NOTE | 2024-11-05 17:10 | PC.NURSE ---
A&OX4. HAVE ATTEMPTED TO WEAN PATIENT OFF OXYGEN T/O SHIFT. HAVE GOTTEN PATIENT ON ROOM AIR AT TIMES, BUT PATIENT DROPS TO HIGH 80S. PT IS BACK ON 1LNC NOW, O2 SAT MID 90S. PATIENT HAS BEEN VERY SLEEPY AND NAPPING T/O DAY. AT BEDSIDE. UP TO BATHROOM WITH 'S STANDBY ASSISTANCE. PATIENT HAS HAD NO NEEDS OR C/O THUS FAR THIS SHIFT, VSS.
[2024-11-05] MEDS: CEFTRIAXONE 1 GM 1 GM in 0.9 % SODIUM CHLORIDE 50 ML IV (18:15)
[2024-11-05] MEDS: ATORVASTATIN 40MG TABLET 40 MG PO (20:06)
[2024-11-05] MEDS: AZITHROMYCIN 250MG TABLET 500 MG PO (20:06)
[2024-11-05] MEDS: PANTOPRAZOLE 40MG TABLET 40 MG PO (20:07)
[2024-11-05] MEDS: GABAPENTIN 600MG TABLET 600 MG PO (20:07)
[2024-11-05] MEDS: humaLOG 100 UNITS/ML 10ML VIAL (SSI) SUBCUT (20:17)
[2024-11-05 20:34] LABS: POC Glucose,Bedside 151 (70-110)
[2024-11-06] VITALS: BP 125/68; PULSE 80; PULSE 82; RESP 16; TEMP 36.5; O2SAT 91
[2024-11-06 00:18] VITALS: PULSE 72; PULSE 76; O2SAT 92
[2024-11-06] MEDS: IPRATROPIUM/ALBUTEROL 3 ML NEB IH ×2 (00:18→06:19)
[2024-11-06 04:00] VITALS: BP 131/57; PULSE 70; PULSE 81; RESP 16; TEMP 36.6; BMI 34.7
--- NOTE | 2024-11-06 04:01 | PC.NURSE ---
Patient is alert and oriented x4. He was observed to have eyes closed, respirations even and unlabored on 1 L of oxygen via nasal cannula, and no apparent distress throughout the night. Current oxygen flow has been unable to be weaned without dropping oxygen sats during this shift; oxygen saturations have maintained low 90s. Other vital signs have remained stable; normal sinus rhythm on telemetry. Trace swelling was noted in his bilateral lower extremities. He reports having an intermittent, productive cough; sputum production was observed to be thick in consistency and white in color. Upon auscultation of his lungs, scattered expiratory rhonchi and diminished lung sounds were heard throughout. Heart and bowel sounds were within normal findings. He has been standing at the bedside to use the urinal for voiding needs and ambulates with standby assistance in his room/to the bathroom without difficulties. Scheduled medications were administered as appropriately per MAR. Fresh ice water was given. [facility] glucose checks performed. Patient is currently resting upright in bed without any further complaints. No acute changes noted thus far. Call light within reach.
[2024-11-06 05:49] LABS: POC Glucose,Bedside 128 (70-110)
[2024-11-06 06:20] VITALS: PULSE 78; PULSE 80; O2SAT 92
[2024-11-06 08:00] VITALS: BP 136/64; PULSE 83; PULSE 90; RESP 18; TEMP 36.7; O2SAT 91
--- NOTE | 2024-11-06 08:28 | EXP.PHA.PN ---
Subjective *Date: 11/06/24 *Time: 08:28 Medical Exam Vital signs and Labs for Last 24 Hours: Vital Signs Temp Pulse Pulse Resp BP Pulse Ox O2 Del Method 11/06/24 06:40 Nasal Cannula 11/06/24 06:20 78 11/06/24 06:20 80 11/06/24 06:20 92 L Nasal Cannula 11/06/24 05:00 Nasal Cannula 11/06/24 04:00 97.9 F 81 16 131/57 L Nasal Cannula 11/06/24 04:00 70 11/06/24 03:00 Nasal Cannula 11/06/24 01:00 Nasal Cannula 11/06/24 00:18 72 11/06/24 00:18 76 11/06/24 00:18 92 L Nasal Cannula 11/06/24 00:00 97.7 F 82 16 125/68 91 L Nasal Cannula 11/06/24 00:00 80 11/05/24 23:00 Nasal Cannula 11/05/24 21:00 Nasal Cannula 11/05/24 20:00 80 16 92 L Nasal Cannula 11/05/24 20:00 80 11/05/24 19:56 98.2 F 84 16 134/64 92 L Nasal Cannula 11/05/24 18:33 Nasal Cannula 11/05/24 18:16 84 11/05/24 18:16 89 11/05/24 18:16 91 L Nasal Cannula 11/05/24 16:41 Nasal Cannula 11/05/24 16:00 90 11/05/24 16:00 98.2 F 83 18 189/82 H 92 L Nasal Cannula 11/05/24 15:00 Room Air 11/05/24 13:00 Room Air 11/05/24 12:00 90 11/05/24 11:26 97.6 F 80 19 146/67 H 94 L Nasal Cannula 11/05/24 11:01 85 11/05/24 11:01 79 11/05/24 11:01 91 L Nasal Cannula 11/05/24 11:00 Nasal Cannula 11/05/24 08:53 Nasal Cannula O2 Flow Rate 11/06/24 06:40 1 11/06/24 06:20 11/06/24 06:20 11/06/24 06:20 1 11/06/24 05:00 1 11/06/24 04:00 1 11/06/24 04:00 11/06/24 03:00 1 11/06/24 01:00 1 11/06/24 00:18 11/06/24 00:18 11/06/24 00:18 1 11/06/24 00:00 1 11/06/24 00:00 11/05/24 23:00 1 11/05/24 21:00 1 11/05/24 20:00 1 11/05/24 20:00 11/05/24 19:56 1 11/05/24 18:33 1 11/05/24 18:16 11/05/24 18:16 11/05/24 18:16 1 11/05/24 16:41 1 11/05/24 16:00 11/05/24 16:00 0.5 11/05/24 15:00 11/05/24 13:00 11/05/24 12:00 11/05/24 11:26 1 11/05/24 11:01 11/05/24 11:01 11/05/24 11:01 1 11/05/24 11:00 0.5 11/05/24 08:53 0.5 Intake and Output 11/05/24 11/06/24 11/06/24 23:59 07:59 15:59 Intake Total 360 / 1285 177 / 177 Output Total 300 / 800 200 / 200 Balance 60 / 485 -23 / -23 Intake: Intake, Oral Amount 360 / 1035 177 / 177 Output: Output, Urine Amount 300 / 800 200 / 200 Other: Number of Voids 1 Number of Unmeasured Voids 0 0 Number of Bowel Movements 1 Weight 85.729 kg Patient Weight 11/06/24 23:59 Weight 85.729 kg Laboratory Results - last 24 hr 11/05/24 11:29: POC Glucose 139 H 11/05/24 16:23: POC Glucose 146 H 11/05/24 20:09: POC Glucose 151 H 11/06/24 05:39: POC Glucose 128 H I & O for Labs for Last 24 Hours: Intake & Output 11/03/24 11/04/24 11/05/24 11/06/24 23:59 23:59 23:59 23:59 Intake Total 1558 / 2008 1480 / 1850 1108 / 1285 177 / 177 Output Total 800 / 900 1125 / 1125 800 / 800 200 / 200 Balance 758 / 1108 355 / 725 308 / 485 -23 / -23 Weight 85.638 kg 86.364 kg 86.3 kg 85.729 kg Microbiology Reports for the Last 24 Hours: Microbiology 11/03/24 10:36 Sputum - Expectorated Sputum Gram Stain - Final 11/03/24 10:36 Sputum - Expectorated Sputum Sputum Culture - Final 11/02/24 20:43 Urine,Clean Catch Urine Culture - Final No growth. The patient's infection will respond to the chosen ABx?: Yes (SPUTUM = NORMAL HEBER, AFEBRILE OVER 24 HRS.) Is the patient receiving the right drug, dose, and route?: Yes Could a more targeted ABx be ordered?: No How long ABx needed (days)?: 5
--- NOTE | 2024-11-06 08:28 | EXP.ACUTE.PN ---
Subjective *Date: 11/06/24 *Time: 09:02 Interval history: Patient is feeling better today. He still has oxygen in place but he is much less SOA. He has been up and moving in the room. He denies any pain. He finally slept and is eating well. Medical Exam Vital signs and Labs for Last 24 Hours: Vital Signs Temp Pulse Pulse Resp BP Pulse Ox O2 Del Method 11/06/24 06:40 Nasal Cannula 11/06/24 06:20 78 11/06/24 06:20 80 11/06/24 06:20 92 L Nasal Cannula 11/06/24 05:00 Nasal Cannula 11/06/24 04:00 97.9 F 81 16 131/57 L Nasal Cannula 11/06/24 04:00 70 11/06/24 03:00 Nasal Cannula 11/06/24 01:00 Nasal Cannula 11/06/24 00:18 72 11/06/24 00:18 76 11/06/24 00:18 92 L Nasal Cannula 11/06/24 00:00 97.7 F 82 16 125/68 91 L Nasal Cannula 11/06/24 00:00 80 11/05/24 23:00 Nasal Cannula 11/05/24 21:00 Nasal Cannula 11/05/24 20:00 80 16 92 L Nasal Cannula 11/05/24 20:00 80 11/05/24 19:56 98.2 F 84 16 134/64 92 L Nasal Cannula 11/05/24 18:33 Nasal Cannula 11/05/24 18:16 84 11/05/24 18:16 89 11/05/24 18:16 91 L Nasal Cannula 11/05/24 16:41 Nasal Cannula 11/05/24 16:00 90 11/05/24 16:00 98.2 F 83 18 189/82 H 92 L Nasal Cannula 11/05/24 15:00 Room Air 11/05/24 13:00 Room Air 11/05/24 12:00 90 11/05/24 11:26 97.6 F 80 19 146/67 H 94 L Nasal Cannula 11/05/24 11:01 85 11/05/24 11:01 79 11/05/24 11:01 91 L Nasal Cannula 11/05/24 11:00 Nasal Cannula 11/05/24 08:53 Nasal Cannula O2 Flow Rate 11/06/24 06:40 1 11/06/24 06:20 11/06/24 06:20 11/06/24 06:20 1 11/06/24 05:00 1 11/06/24 04:00 1 11/06/24 04:00 11/06/24 03:00 1 11/06/24 01:00 1 11/06/24 00:18 11/06/24 00:18 11/06/24 00:18 1 11/06/24 00:00 1 11/06/24 00:00 11/05/24 23:00 1 11/05/24 21:00 1 11/05/24 20:00 1 11/05/24 20:00 11/05/24 19:56 1 11/05/24 18:33 1 11/05/24 18:16 11/05/24 18:16 11/05/24 18:16 1 11/05/24 16:41 1 11/05/24 16:00 11/05/24 16:00 0.5 11/05/24 15:00 11/05/24 13:00 11/05/24 12:00 11/05/24 11:26 1 11/05/24 11:01 11/05/24 11:01 11/05/24 11:01 1 11/05/24 11:00 0.5 11/05/24 08:53 0.5 Intake and Output 11/05/24 11/06/24 11/06/24 19:59 03:59 11:59 Intake Total 620 / 797 177 / 797 Output Total 100 / 500 200 / 500 200 / 500 Balance 520 / 297 -23 / 297 -200 / 297 Intake: Intake, Oral Amount 620 / 797 177 / 797 Output: Output, Urine Amount 100 / 500 200 / 500 200 / 500 Other: Number of Voids 1 Number of Unmeasured Voids 1 0 0 Number of Bowel Movements 1 Weight 189 lb Patient Weight 11/06/24 11:59 Weight 189 lb Laboratory Results - last 24 hr 11/05/24 11:29: POC Glucose 139 H 11/05/24 16:23: POC Glucose 146 H 11/05/24 20:09: POC Glucose 151 H 11/06/24 05:39: POC Glucose 128 H I & O for Labs for Last 24 Hours: Intake & Output 03/1111/04/24 11/05/24 11/06/24 11:59 11:59 11:59 11:59 Intake Total 778 / 778 1630 / 1630 1118 / 1118 797 / 797 Output Total 400 / 400 1325 / 1325 700 / 700 500 / 500 Balance 378 / 378 305 / 305 418 / 418 297 / 297 Weight 188 lb 12.8 oz 190 lb 6.4 oz 190 lb 4.143 oz 189 lb Microbiology Reports for the Last 24 Hours: Microbiology 11/03/24 10:36 Sputum - Expectorated Sputum Gram Stain - Final 11/03/24 10:36 Sputum - Expectorated Sputum Sputum Culture - Final 11/02/24 20:43 Urine,Clean Catch Urine Culture - Final No growth. Constitutional: Present no acute distress Respiratory: Present decreased breath sounds Cardiac: Present Reg Rate and Rhythm GI: Present soft; Absent distention or tenderness Extremities: Present edema (trace bilateral) Skin: Present intact Neuro: Present alert, awake and oriented x 3 Assessment and Plan *Assessment and plan (1) Multifocal pneumonia: Status: Acute Category: Medical Code(s): J18.9 - Pneumonia, unspecified organism (2) Acute hypoxemic respiratory failure: Status: Acute Category: Medical Code(s): J96.01 - Acute respiratory failure with hypoxia (3) Diabetic peripheral neuropathy: Status: Acute Category: Medical Code(s): E11.42 - Type 2 diabetes mellitus with diabetic polyneuropathy (4) Type 2 diabetes mellitus with hyperglycemia, without long-term current use of insulin: Status: Acute Category: Medical Code(s): E11.65 - Type 2 diabetes mellitus with hyperglycemia (5) COPD (chronic obstructive pulmonary disease): Status: Chronic Qualifiers: COPD type: emphysema Emphysema type: other Qualified Code(s): J43.8 - Other emphysema Category: Medical Code(s): J44.9 - Chronic obstructive pulmonary disease, unspecified (6) HLD (hyperlipidemia): Status: Chronic Qualifiers: Hyperlipidemia type: mixed hyperlipidemia Qualified Code(s): E78.2 - Mixed hyperlipidemia Category: Medical Code(s): E78.5 - Hyperlipidemia, unspecified (7) HTN (hypertension): Status: Chronic Qualifiers: Hypertension type: primary hypertension Qualified Code(s): I10 - Essential (primary) hypertension Category: Medical Code(s): I10 - Essential (primary) hypertension (8) CAD (coronary artery disease): Status: Chronic Qualifiers: Associated angina: without angina Coronary Disease-Associated Artery/Lesion type: bypass graft [place] vs. transplanted heart: [place] heart Qualified Code(s): I25.810 - Atherosclerosis of coronary artery bypass graft(s) without angina pectoris Category: Medical Code(s): I25.10 - Atherosclerotic heart disease of [place] coronary artery without angina pectoris Plan Will continue to wean oxygen. Can likely discharge soon. Dr. Hines entry - Saw patient, he has improved, plan discharge home today.
[2024-11-06] MEDS: IRBESARTAN 75MG TABLET 75 MG PO (08:51)
[2024-11-06] MEDS: GABAPENTIN 600MG TABLET 600 MG PO (08:51)
[2024-11-06] MEDS: ASPIRIN EC 81MG TABLET 81 MG PO (08:51)
[2024-11-06] MEDS: RIVAROXABAN 2.5MG TABLET 2.5 MG PO (08:51)
[2024-11-06 08:54] VITALS: O2SAT 88
--- NOTE | 2024-11-06 08:54 | PC.NURSE ---
pt o2 sat 88% on room air
--- NOTE | 2024-11-09 11:18 | SW/DCPLANNER ---
Spoke with patient on the phone. Patient stated that he is doing well. Patient stated that he is aware of his upcoming appointment with his primary care provider. 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 Patient stated that he has no concerns or questions at this time. Nahomi Smith
--- NOTE | 2024-11-15 21:16 | P.DS_ITS ---
General Admission date:: 11/02/24 Discharge date: 11/06/24 HPI HPI HPI: Mr. Ramos is an 78-year-old male with a history of coronary artery disease status post CABG and myocardial infarction in 1999, type 2 diabetes, hypertension, hyperlipidemia, peptic ulcer disease, COPD, pulmonary nodule, chronic back pain, colon polyps, upper GI bleed and duodenal ulcer who presented to [facility] emergency room for evaluation after experiencing shortness of breath and developing nausea and vomiting 11/02/2024. He states he was fine the previous day. He ate breakfast and went to christianity and in the even ing developed some nausea. He also developed a cough. He had felt fine prior to this. Bowels were moving normally, and he had been eating without difficulties. He does not think he had a fever but was also short of breath. He denies having chest pain. With evaluation in the emergency room he was found to have a fever of 100.2. White blood cell count was significant at 21,600. COVID and flu were negative. Chest CT showed multifocal pneumonia and plain chest films were also consistent with this. He was thus admitted for further evaluation and treatment and was started on Rocephin and Zithromax. In the emergency room he also received fluid boluses, dexamethasone 10 mg IV and DuoNeb treatments and acetaminophen. This a.m. patient states he feels much better. He was able to eat all of his breakfast without any problems. He denies shortness of breath and chest pain. He continues with a congested cough. O2 sats are in the 90's on 3.5 LPM. Hospital Course Hospital Course Hospital Course: The patient was started on Rocephin and Zithromax as well as DuoNebs and oxygen. He did begin feeling better and his shortness of breath improved throughout his stay. His white blood cell count improved. His oxygen was weaned down to 1 L but he was unable to be weaned off of oxygen. His room air oxygen saturation was 88%. He was able to sleep and eat and was stable to be discharged home with home oxygen and p.o. antibiotics. His sputum showed no growth. Exam Data for Last 24 hours Vital signs and Labs for Last 24 Hours: Temp Pulse Resp BP Pulse Ox O2 Del Method O2 Flow Rate 98.1 F 83 18 136/64 88 L Nasal Cannula 1 11/06/24 08:00 11/06/24 08:00 11/06/24 08:00 11/06/24 08:00 11/06/24 08:54 11/06/24 11:00 11/06/24 11:00 Narrative: Constitutional Constitutional: no acute distress Comments: Sitting up in the bed and he has completed all of his breakfast. He appears mo st comfortable without dyspnea *Routine HEENT Exam Head: Present normocephalic and atraumatic Eye: Present PERRL; Absent conjunctival icterus, scleral injection or conjunctivae pink ENT: Present mucous membranes moist and oropharynx clear *Routine Neck Exam Neck: Present supple and full ROM; Absent lymphadenopathy, thyromegaly or tenderness *Routine Respiratory Exam Respiratory: Present rhonchi (Just a few soft scattered rhonchi) and diminished air movement *Routine Cardiovascular Exam Cardiovascular: Present RRR *Routine Abdominal Exam Abdominal: Present soft and normoactive bowel sounds; Absent tenderness, distended or guarding *Routine Rectal Exam Rectal:: deferred *Routine Genitalia Exam Genitalia:: deferred *Routine Extremities Exam Extremities: Present pulses intact; Absent edema or calf tenderness *Routine Neurological Exam Neurological: Present alert and oriented X3 DS: Diagnosis Discharge Diagnosis (1) Multifocal pneumonia: Status: Acute Code(s): J18.9 - Pneumonia, unspecified organism (2) Acute hypoxemic respiratory failure: Status: Acute Code(s): J96.01 - Acute respiratory failure with hypoxia (3) Diabetic peripheral neuropathy: Status: Acute Code(s): E11.42 - Type 2 diabetes mellitus with diabetic polyneuropathy (4) Type 2 diabetes mellitus with hyperglycemia, without long-term current use of insulin: Status: Acute Code(s): E11.65 - Type 2 diabetes mellitus with hyperglycemia (5) COPD (chronic obstructive pulmonary disease): Status: Chronic Code(s): J44.9 - Chronic obstructive pulmonary disease, unspecified Qualifiers: COPD type: emphysema Emphysema type: other Qualified Code(s): J43.8 - Other emphysema (6) HLD (hyperlipidemia): Status: Chronic Code(s): E78.5 - Hyperlipidemia, unspecified Qualifiers: Hyperlipidemia type: mixed hyperlipidemia Qualified Code(s): E78.2 - Mixed hyperlipidemia (7) HTN (hypertension): Status: Chronic Code(s): I10 - Essential (primary) hypertension Qualifiers: Hypertension type: primary hypertension Qualified Code(s): I10 - Essential (primary) hypertension (8) CAD (coronary artery disease): Status: Chronic Code(s): I25.10 - Atherosclerotic heart disease of [place] coronary artery without angina pectoris Qualifiers: Coronary Disease-Associated Artery/Lesion type: bypass graft [place] vs. transplanted heart: [place] heart Associated angina: without angina Qualified Code(s): I25.810 - Atherosclerosis of coronary artery bypass graft(s) without angina pectoris Meds Home Medications and Allergies Home Medications ?Medication ?Instructions ?Recorded ?Confirmed ?Type aspirin 81 mg tablet,delayed 81 mg PO DAILY 02/10/18 11/02/24 History release (Adult Low Dose Aspirin) multivitamin 1 tab PO DAILY 02/11/18 11/03/24 History pantoprazole 40 mg tablet,delayed 40 mg PO DAILY 03/17/19 11/02/24 History release (Protonix) rivaroxaban 2.5 mg tablet 2.5 mg PO BID 09/22/19 11/02/24 History ferrous gluconate 324 mg (37.5 mg 324 mg PO Q48H 03/22/20 11/03/24 History iron) tablet spironolactone 50 mg tablet 50 mg PO DAILY 06/22/20 11/02/24 History tiotropium 2.5 mcg-olodaterol 2.5 2.5 inh inhalation DAILY 01/04/21 11/02/24 History mcg/actuation mist for inhalation guaifenesin 400 mg tablet 400 mg PO BID 09/20/21 11/02/24 History losartan 50 mg tablet 50 mg PO DAILY 09/20/21 11/02/24 History niacin 500 mg tablet 500 mg PO HS 09/20/21 11/03/24 History ascorbate calcium (vitamin C) 500 500 mg PO DAILY 03/21/22 11/03/24 History mg tablet cholecalciferol (vitamin D3) 25 25 mcg PO DAILY 03/21/22 11/03/24 History mcg (1,000 unit) capsule zinc 50 mg tablet 50 mg PO DAILY 03/21/22 11/03/24 History acetaminophen 650 mg 650 mg PO Q12H 09/24/22 11/03/24 History tablet,extended release (Tylenol 8 Hour) furosemide 20 mg tablet (Lasix) 40 mg PO BID 07/29/23 11/02/24 History gabapentin 600 mg tablet 600 mg PO BID 07/30/24 11/02/24 History metformin 500 mg tablet,extended 1,000 mg PO DAILY 07/30/24 11/03/24 History release 24 hr krill oil 500 mg capsule 1,000 mg PO DAILY 11/02/24 11/02/24 History nitroglycerin 400 mcg/spray 0.4 mcg translingual NEEDED PRN 11/02/24 11/02/24 History translingual chest pressure rosuvastatin 20 mg tablet 20 mg PO HS 11/03/24 11/03/24 History azithromycin 500 mg tablet 500 mg PO DAILY 3 days #3 tabs 11/06/24 Rx (Zithromax TRI-YANCY) cefdinir 300 mg capsule 300 mg PO BID #14 caps 11/06/24 Rx New Prescriptions to Start Prescriptions: azithromycin [Zithromax TRI-YANCY] Morris Hines cefdinir Morris Hines Allergies Allergy/AdvReac Type Severity Reaction Status Date / Time No Known Allergies Allergy Verified 11/02/24 18:18 Discharge Plan Disposition Patient Disposition: Home, Self-Care Condition: Serious Follow up Plan Follow up with: Morris Hines MD [Primary Care Provider] - 11/17/24 9:45 am Prescriptions/Medication Reconciliation: New cefdinir 300 mg capsule 300 mg PO BID Qty: 14 0RF azithromycin [Zithromax TRI-YANCY] 500 mg tablet 500 mg PO DAILY 3 Days Qty: 3 0RF Continued rivaroxaban 2.5 mg tablet 2.5 mg PO BID spironolactone 50 mg tablet 50 mg PO DAILY tiotropium-olodaterol 2.5-2.5 mcg/actuation mist 2.5 inh INHALATION DAILY acetaminophen [Tylenol 8 Hour] 650 mg tablet extended release 650 mg PO Q12H furosemide [Lasix] 20 mg tablet 40 mg PO BID Rx Instructions: afternoon dose is prn aspirin [Adult Low Dose Aspirin] 81 mg tablet,delayed release (DR/EC) 81 mg PO DAILY multivitamin tablet 1 tab PO DAILY pantoprazole [Protonix] 40 mg tablet,delayed release (DR/EC) 40 mg PO DAILY ferrous gluconate 324 mg (37.5 mg iron) tablet 324 mg PO Q48H metformin 500 mg tablet extended release 24 hr 1,000 mg PO DAILY losartan 50 mg tablet 50 mg PO DAILY guaifenesin 400 mg tablet 400 mg PO BID niacin 500 mg tablet 500 mg PO HS zinc 50 mg tablet 50 mg PO DAILY cholecalciferol (vitamin D3) 25 mcg (1,000 unit) capsule 25 mcg PO DAILY ascorbate calcium (vitamin C) 500 mg tablet 500 mg PO DAILY gabapentin 600 mg tablet 600 mg PO BID nitroglycerin 400 mcg/spray spray,non-aerosol 0.4 mcg translingual NEEDED PRN (Reason: chest pressure) Patient Comments: SPRAY 1 TIME UNDER THE TONGUE EVERY 5 MINUTES NEEDED FOR CHEST PAIN. IF 3 SPRAYS NEEDED, GO TO [facility]. krill oil 500 mg Capsule 1,000 mg PO DAILY rosuvastatin 20 mg tablet 20 mg PO HS Patient Comments: TAKE 1 TABLET 1 TIME EACH DAY Problem Reconciliation Problems Reviewed?: Yes Patient Discharge Instructions ACTIVITY: Limited activity DIET: continue same diet Additional Instructions: Patient needs supplemental oxygen at 2 L/min/nc Patient Instructions: DI for Pneumonia -- Adult Print Language: Vietnamese Providers Primary Care Provider: Morris Hines Admit Provider: Bryan Hendricks Attending Provider: Morris Hines
== END 2024-11-06 11:45 | disposition home or self-care (01) ==
LOC: ER 20:27 → 2ND 20:36
PROVIDERS: Admitting Provider Family Medicine; Emergency Provider Emergency Medicine; PCP Family Medicine; Visit Provider Family Medicine
DX: J18.9 Pneumonia, unspecified organism (principal); J96.01 Acute respiratory failure with hypoxia; R11.2 Nausea with vomiting, unspecified; E11.42 Type 2 diabetes mellitus with diabetic polyneuropathy; E11.65 Type 2 diabetes mellitus with hyperglycemia; E78.2 Mixed hyperlipidemia; J43.9 Emphysema, unspecified; J44.89 Other specified chronic obstructive pulmonary disease; I10 Essential (primary) hypertension; E66.9 Obesity, unspecified; I25.2 Old myocardial infarction; K26.9 Duodenal ulcer, unspecified as acute or chronic, without hemorrhage or perforation; I25.810 Atherosclerosis of coronary artery bypass graft(s) without angina pectoris; Z79.82 Long term (current) use of aspirin; Z79.01 Long term (current) use of anticoagulants; Z79.899 Other long term (current) drug therapy; Z68.34 Body mass index [BMI] 34.0-34.9, adult; Z95.1 Presence of aortocoronary bypass graft; Z87.891 Personal history of nicotine dependence; Z79.84 Long term (current) use of oral hypoglycemic drugs
CPT/HCPCS: 36415; 71045; 71275; 80048; 80053; 81001; 82803; 82962; 83605; 83880; 84484; 85007; 85025; 85027; 85378; 87040; 87070; 87086; 87205; 87633; 87636; 93005; 94640; 94760; 94761; 99291; G0378; J0456; J0696; J1100; J1650; J7050; J7120; J7620; Q9967

== ENCOUNTER 2025-02-15 09:43 | Outpatient (CLI) | payer MEDICARE, SELFPAY ==
--- OUTSIDE RECORDS SUMMARY | 2024-11-17 05:45 | XMS_ITS ---
[id number] [address] [place] [phone] Care Team Providers Care Other Sales Support Worker Name Role Phone Morris Hines Primary Care Provider [phone] Allergies No Known Allergies Reason For Referral Diagnosis 1 Acute respiratory fa ilure with hypoxia (J96.01) Diagnosis 2 Chronic obstructive pulmonary disease, unspecified COPD type (J44.9) [facility] Referring Provider First Name Morris Referring Provider Last Name Donny Referring Provider Speciality Family Pra ctice Referred Organization [facility] OP Referred Provider Tello Wilks Referred Address [address] [facility] [address] [facility] [phone], Referred Provider Specialty Pulmonary Di seases General Notes Radha Oquendo 11/18/19 10:27:37 AM > faxed to Dr. Wilks's office, Radha Oquendo 11/23/2024 10:16:48 AM > 02/22/2025 at 02:00pm Referral Priority Routine REASON FOR VISIT [facility] d/c f/u Medications Medication SIG (Take, Route, Frequency, Duration) Notes Start Date End Date Status Spironolactone 50 MG TAKE 1 TABLET EVERY DAY for 90 Active Xarelto 2.5 MG TAKE 1 TABLET TWICE DAILY for 90 Active Gabapentin 600 MG 1 tablet Orally Two times a day for 30 day(s) 09/14/2024 Active Furosemide 20 MG TAKE 2 TABLETS TWICE DAILY for 90 Active Trelegy Ellipta 100-62.5-25 MCG/ACT 1 puff Inhalation Once a day 11/17/2024 Active Pantoprazole Sodium 40 mg 1 tablet Orall y Once a day for 30 days Active Rosuvastatin Calcium 20 MG 1 tab(s) oral ly once a day Active Losartan Potassium 50 MG 1 tab(s) orally once a day Active Nitroglycerin 0.4 MG/SPRAY 1 spray(s) ahn blingually every 5 minutes as needed Active metFORMIN HCl ER 500 MG 2 Tablets Orally Once a day Active Viagra 100 MG 1 tab(s) orally once a day as needed 10/13/2013 Active Multivitamin - 1 tab(s) orally once a day Active Niacin ER 500 MG 1 cap(s) orally once a day (at bedtime) 11/06/2016 Active Ferrous Gluconate 324 (38 Fe) MG 1 tab(s) orally once a day 02/13/2019 Active Aspirin 81 MG 1 tablet Orally Once a day for 30 day(s) Active Vital Signs Weight 185.2 lbs 11/17/2024 Blood pressure systolic 140 mm Hg 11/18/19 Blood pressure diastolic 70 mm Hg 025 Heart Rate 94 /min 11/17/2024 Height 64 in 11/17/2024 BMI 31.79 kg/m2 11/17/2024 Encounters Encounter Location Date Provider Diagnosis [facility] [address] [facility] [place] [address] [place] [address], [place] [phone] 11/17/2024 Morris Hines Community acquired pneumonia, bilateral J18.9 ; Acute respiratory failure with hypoxia J96.01 and Chronic obstructive pulmonary disease, unspecified COPD type J44.9 Assessments Encounter Date Diagnosis (ICD Code) Assessment Notes Treatment Notes Treatment Clinical Notes Section Notes 11/17/2024 Community acquired pneumonia, bilateral (ICD-10 - J18.9) Improved 11/17/2024 Acute respiratory failure with hypoxia (ICD-10 - J96.01) Continue supplemental oxygen use 11/17/2024 Chronic obstructive pulmonary disease, unspecified COPD type (ICD-10 - J44.9) 11/17/2024 Other Discharge summary with available lab/diagnostic imaging results obtained and reviewed. Discharge medication list reconciled. Appropriate counseling provided. Moderate Complexity Plan Of Treatment Medication Medication Name Sig Start Date Stop Date Notes Trelegy Ellipta 100-62.5-25 MCG/ACT 1 puff Inhalation Once a day 11/17/2024 Stiolto Respimat 2.5-2.5 MCG/ACT INHALE 2 PUFFS EVERY 24 HOURS Treatment Notes Assessment Notes Community acquired pneumonia, bilateral Improved Acute respiratory failure with hypoxia C ontinue supplemental oxygen use Other Discharge summary wi th available lab/diagnostic imaging results obtained and reviewed. Discharge medication list reconciled. Appropriate counseling provided. Moderate Complexity Referrals Referral Date Details 11/17/2024 11/17/2024, Tello Wilks, [address], [place], [place], [phone], Next Appt Details Follow Up: 4 Weeks, Reason: Provider Name:Morris Go ry, 06/18/2025 09:30:00 AM, [address] [facility] [address], [place], [place], [phone], Progress Notes * MEHUL MADOB: [birth year] (79 yo M)Acc No.[id number]:11/17/2024 Patient: MEHUL WEATHERS Provider: Kaylyn Hines M.D. :1945 A ge:78 Y S ex:Male Date:11/17/2024 Address:[address] [place], [place] [id number] Subjective: * Chief Complaints: * 1 . [facility] d/c f/u. * HPI: H PI: Patient is here today for a Transition of Care Visit. Discharge from the following Facility: [facility] ,Discharge date: Saturday11/06/2024 ,Date of phone contact following discharge: Saturday11/09/2024. Pt admitted for bilateral pneummonia. Pt states he is feeling better and has not had any issues since d/c. * ROS: D ERMATOLOGY: no R thierno. n o H joey. G ASTROENTEROLOGY: no N ausea. n o V omiting. U ROLOGY: no D ifficulty urinating. n o B lood in urine. * Medical History: C oronary Artery Disease, s/p CABG, Myocardial Infarction - December 1999, Type 2 Diabetes, Hypertenstion, Hyperlipidemia, Peptic ulcer disease, Erectile dysfunction, COPD, 80 pack year smoking history, quit 2014, Pulmonary nodule, s/p CT in 2015 & 2016, Chronic back pain, Colon polyps, Patient declines prostate cancer screening, November 2017, Upper GI bleed, s/p EGD at , January 2019, Duodenal ulcer. * Surgical History: C oronary Artery Bypass Graft - 3 vessels, done by Dr. Marie at [place] [address], Heart Cath x2 - Dr. Long 07/2016, EKG 10/17/2016, Dr. Kwon - Colonoscopy 07/2016, 2016, Excision of anal polyp - Dr. Kwon 09/2016, Cardiac Stent x2 02/11/2018, EGD 01/2019. * Hospitalization/Major Diagno stic Procedure: A KI, Gastrobleeding- 01/24/2019. * Family History: F ather: 89 yrs, Heart attack and stomach cancer. M other: alive 92 yrs, emphysema, asthma, gallbladder cancer. 1 brother(s) , 1 sister(s) . 1 daughter(s) . . * Social History: C URRENT TOBACCO USE S moking Status: Patient does NOT smoke. C affeine: yes, frequency:. Home smoke detector use: yes. Alcohol: No. * Medications: T aking Aspirin 81 MG Tablet Delayed Release 1 tablet Orally Once a day , Taking Niacin ER 500 MG Capsule Extended Release 1 cap(s) orally once a day (at bedtime) , Taking Viagra 100 MG Tablet 1 tab(s) orally once a day as needed , Taking Multivitamin - Tablet 1 tab(s) orally once a day , Taking Ferrous Gluconate 324 (38 Fe) MG Tablet 1 tab(s) orally once a day , Taking Stiolto Respimat 2.5-2.5 MCG/ACT Aerosol Solution INHALE 2 PUFFS EVERY 24 HOURS , Taking Pantoprazole Sodium 40 mg Tablet Delayed Release 1 tablet Orally Once a day , Taking Nitroglycerin 0.4 MG/SPRAY Solution 1 spray(s) sublingually every 5 minutes as needed , Taking metFORMIN HCl ER 500 MG Tablet Extended Release 24 Hour 2 Tablets Orally Once a day , Taking Rosuvastatin Calcium 20 MG Tablet 1 tab(s) orally once a day , Taking Losartan Potassium 50 MG Tablet 1 tab(s) orally once a day , Taking Gabapentin 600 MG Tablet 1 tablet Orally Two times a day , Taking Furosemide 20 MG Tablet TAKE 2 TABLETS TWICE DAILY , Taking Spironolactone 50 MG Tablet TAKE 1 TABLET EVERY DAY , Taking Xarelto 2.5 MG Tablet TAKE 1 TABLET TWICE DAILY , Medication List reviewed and reconciled with the patient * Allergies: N .K.D.A. Objective: * Vitals: W t:185.2, Temp:97.8, BP:140/70, HR:94, O2 Sat:93% on 2L O2, Nurse:real, Ht: 64, BMI:31.79. * Examination: G eneral Examination: General Appearance: N AD, supplemental oxygen in use, using a cane to assist with ambulation. Heart: R SR. Lungs: c lear to auscultation. Assessment: * Assessment: 1. C ommunity acquired pneumonia, bilateral - J18.9 (Primary) 2 . A cute respiratory failure with hypoxia - J96.01 3 . C hronic obstructive pulmonary disease, unspecified COPD type - J44.9 Plan: * Treatment: 2. A cute respiratory failure with hypoxia Notes: Continue supplemental oxygen use Referral To:[facility] Reason: 3. C hronic obstructive pulmonary disease, unspecified COPD type Start Trelegy Ellipta Aerosol Powder Breath Activated, 100-62.5-25 MCG/ACT, 1 puff, Inhalation, Once a day, 3, Refills 1; S top Stiolto Respimat Aerosol Solution, 2.5-2.5 MCG/ACT, INHALE 2 PUFFS EVERY 24 HOURS. Referral To:[facility] Reason: 4. O thers Notes: Discharge summary with available lab/diagnostic imaging results obtained and reviewed. Discharge medication list reconciled. Appropriate counseling provided. Moderate Complexity * Procedure Codes: G 2211 Complex e/[place], [address] [facility] 14 DAY DISCH, 1111F DSCHR MED/CURENT MED MERGE, [address] [place], 3077F SYST BP = 140 MM HG6 IT, 3078F DIAST BP < 80 MM HG * Follow Up: 4 Weeks * Billing Information: * Visit Code: 88719 Office Visit, Est Pt., Level 4. * Procedure Codes: G2211 Complex e/[place]. [address] [facility] 14 DAY DISCH. 1111F DSCHR MED/CURENT MED MERGE. [address] [place]. 3077F SYST BP = 140 MM HG6 IT. 3078F DIAST BP < 80 MM HG. * Electronic signature of Carmencita Hines MD on 02/15/2025 at 10:02 AM EDT Sign off status: Pending * Provider: Kaylyn Hines M.D. Date: 0 11/17/2024 Generated for Celeste amezcua/Silvana/Jose on: 0 02/15/2025 10:02 AM EDT History and Physical Notes * HPI (History of Present Illness) Category Sub-Category Detail Notes Category Not es HPI Patient is here today for a [facility] of Care Visit. Discharge from the following Facility: [facility] ,Discharge date: Saturday11/06/2024 ,Date of phone contact following discharge: Saturday11/09/2024. Pt admitted for bilateral pneummonia. Pt states he is feeling better and has not had any issues since d/c Examination Category Sub-Category Detail Notes Category Not es General Examination Heart: RSR Lungs: clear to auscultatio n General Appearance: NAD, supplemental ox ygen in use, using a cane to assist with ambulation Consultation Request Notes Referral Date Referring Provider Referred Provider Not es 11/17/2024 Morris Hines Srinadh
--- OUTSIDE RECORDS SUMMARY | 2024-11-19 05:30 | XMS_ITS | Encounter Summary ---
Author Name [facility] [facility] [place] Address [address] [place] [address] Care Team Providers Care Dosier Operator Name Role Phone REJI JEFFRIES Primary Care Provider Unavailabl e Insurance Providers: All historical and current Section Date Range: From patient's date of to the date document was created. This section includes the names of all active insurance providers for the patient. Insurance Provider Type of Coverage Plan Name Start of Policy Coverage End of Policy Coverage Group Number Member ID Insurance Provider's Telephone Number Policy Herzog's Name Patient's Relationship to Policy Herzog [employer] [facility] (WNR) MEDICARE ADVANTAGE [facility] (WNR) Aug 26, 2017 [id number] KIRSTY MA PATIENT MEDICARE PART D (WNR) MEDICARE (M) PART D Aug 26, 2017 PART D [id number] PATIENT Selected Encounter This section includes the information on record at [place] for the Encounter. Date/Time Encounter Type Encounter Description Reason Provider Source Nov 19, 2024 09:30 AM OFFICE O/P [place] 60 MIN PRIMARY CARE/MEDICINE ICD-10-CM J44.9 Chronic obstructive pulmonary disease, unspecified REJI JEFFRIES Kathryn Encounter Template Text not used by [place] Assessments - Encounter Diagnoses This section includes the primary and secondary diagnoses documented for the Encounter. 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 REJI JEFFRIES [facility] Nov 19, 2024 01:11 PM SECONDARY Encounter for immunization [place] [facility] Nov 19, 2024 01:11 PM SECONDARY Gastro-esophageal reflux disease without esophagitis REJI JEFFRIES [facility] Nov 19, 2024 01:11 PM SECONDARY Personal history of pulmonary embolism REJI JEFFRIES [facility] Nov 19, 2024 01:11 PM SECONDARY Type 2 diabetes mellitus with unspecified complications REJI JEFFRIES [facility] Lab Results: +/- 30 days of the encounter This section includes the Chemistry and Hematology Lab Results [facility] with [facility] for the [facility]. Radiology Reports and Pathology Reports are provided separately, in subsequent sections. Lab Results This section contains the Chemistry/Hematology Results that were resulted 30 days before or 30 daysafter the date of the Encounter. Date/Time Source Result Type Result - Unit Interpretation Reference Range Specimen Type Comment Nov 19, 2024 11:51 AM [facility] PANEL 1 PLASMA Specimen Type: PLASMA Comment: Estimated Glomerular Filtration Rate (eGFR) calculated using the 2020 Chronic Kidney Disease-Epidemio logy (CKD-EPI) Collaboration creatinine equation; units of measure are mL/min/1.73 m2. Results are only valid for adults (>=18 years) whose serum creatinine is in a steady state. eGFR calculations are not valid for patients with acute kidney injury and for patients on dialysis. Creatinine-based estimates of kidney function may also be inaccurate in patients with reduced creatinine generation due to decreased muscle mass (e.g., malnutrition, severe hypoalbuminemia, sarcopenia, chronic neuromuscular disease, amputations, severe heart failure or liver disease) and in patients with increased creatinine generation due to increased muscle mass (e.g., muscle builders, anabolic steroids) or increased dietary intake. As drug clearance is proportional to total GFR and not GFR indexed to body surface area (BSA), in individuals with a BSA substantially different than 1.73 m2, drug dosing should be based on the reported eGFR value de-indexed from BSA by multiplying by the individual's BSA and dividing by 1.73. CKD is diagnosed based on abnormalities of kidney structure or function, present for >3 months, with implications for health and disease. CKD is classified and staged based on cause, eGFR and albuminuria (quantified as urine albumin to creatinine ratio). An eGFR >60 mL/min/1.73 m2 in the absence of increased urine albumin excretion or structural abnormalities does not represent CKD. ====== eGFR CKD Interpretation (mL/min/1.73 m2) stage >=90 G1 Normal 60-89 G2 Mild decrease 45-59 G3A Mild to moderate decrease 30-44 G3B Moderate to severe decrease 15-29 G4 Severe decrease <15 G5 Kidney failure Vitamin B12 test may not yield results when protein level of sample is too elevated. Ordering Provider: REJI JEFFRIES Report Released Date/Time: Nov 19, 2024 10:36 AM Reporting Lab: [address] [address] Performing Lab: [address] [address] CREATININE 1.30 mg/dL H 0.72-1.25 UREA NITROGEN 19 mg/dL 9-25 GLUCOSE 151 mg/dL H 74-100 SODIUM 138 mmol/L 136-145 POTASSIUM 4.6 mmol/L 3.5-5.1 CHLORIDE 95 mmol/L L 98-107 CO2 35 mmol/L H 22-29 CALCIUM 10.3 mg/dL H 8.4-10.2 ANION GAP 8 meq/L 3-19 eGFR (CKD-EPI) 56 Nov 19, 2024 11:51 AM [facility] PANEL 2 PLASMA Specimen Type: PLASM A Comment: Estimated Glomerular Filtration Rate (eGFR) calculated using the 2020 Chronic Kidney Disease-Epidemiology (CKD-EPI) Collaboration creatinine equation; units of measure are mL/min/1.73 m2. Results are only valid for adults (>=18 years) whose serum creatinine is in a steady state. eGFR calculations are not valid for patients with acute kidney injury and for patients on dialysis. Creatinine-based estimates of kidney function may also be inaccurate in patients with reduced creatinine generation due to decreased muscle mass (e.g., malnutrition, severe hypoalbuminemia, sarcopenia, chronic neuromuscular disease, amputations, severe heart failure or liver disease) and in patients with increased creatinine generation due to increased muscle mass (e.g., muscle builders, anabolic steroids) or increased dietary intake. As drug clearance is proportional to total GFR and not GFR indexed to body surface area (BSA), in individuals with a BSA substantially different than 1.73 m2, drug dosing should be based on the reported eGFR value de-indexed from BSA by multiplying by the individual's BSA and dividing by 1.73. CKD is diagnosed based on abnormalities of kidney structure or function, present for >3 months, with implications for health and disease. CKD is classified and staged based on cause, eGFR and albuminuria (quantified as urine albumin to creatinine ratio). An eGFR >60 mL/min/1.73 m2 in the absence of increased urine albumin excretion or structural abnormalities does not represent CKD. eGFR CKD Interpretation (mL/min/1.73 m2) stage >=90 G1 Normal 60-89 G2 Mild decrease 45-59 G3A Mild to moderate decrease 30-44 G3B Moderate to severe decrease 15-29 G4 Severe decrease <15 G5 Kidney failure Vitamin B12 test may not yield results when protein level of sample is too elevated. Ordering Provider: REJI JEFFRIES Report Released Date/Time: Nov 19, 2024 10:36 AM Reporting Lab: [address] [address] Performing Lab: [address] [address] TOTAL PROTEIN 9.1 g/dL H 6.4-8.3 ALBUMIN 4.4 g/dL 3.5-5.2 TOTAL BILIRUBIN 0.5 mg/dL 0.2-1.2 AST 17 U/L 5-34 ALT 19 U/L 0-55 ALK PHOS 78 U/L 40-150 BILIRUBIN-DIRECT 0.2 mg/dL 0.0-0.5 Nov 19, 2024 11:51 AM [facility] B12 VITAMIN PLASMA Specimen Type: PLASM A Comment: Estimated Glomerular Filtration Rate (eGFR) calculated using the 2020 Chronic Kidney Disease-Epidemiology (CKD-EPI) Collaboration creatinine equation; units of measure are mL/min/1.73 m2. Results are only valid for adults (>=18 years) whose serum creatinine is in a steady state. eGFR calculations are not valid for patients with acute kidney injury and for patients on dialysis. Creatinine-based estimates of kidney function may also be inaccurate in patients with reduced creatinine generation due to decreased muscle mass (e.g., malnutrition, severe hypoalbuminemia, sarcopenia, chronic neuromuscular disease, amputations, severe heart failure or liver disease) and in patients with increased creatinine generation due to increased muscle mass (e.g., muscle builders, anabolic steroids) or increased dietary intake. As drug clearance is proportional to total GFR and not GFR indexed to body surface area (BSA), in individuals with a BSA substantially different than 1.73 m2, drug dosing should be based on the reported eGFR value de-indexed from BSA by multiplying by the individual's BSA and dividing by 1.73. CKD is diagnosed based on abnormalities of kidney structure or function, present for >3 months, with implications for health and disease. CKD is classified and staged based on cause, eGFR and albuminuria (quantified as urine albumin to creatinine ratio). An eGFR >60 mL/min/1.73 m2 in the absence of increased urine albumin excretion or structural abnormalities does not represent CKD. eGFR CKD Interpretation (mL/min/1.73 m2) stage >=90 G1 Normal 60-89 G2 Mild decrease 45-59 G3A Mild to moderate decrease 30-44 G3B Moderate to severe decrease 15-29 G4 Severe decrease <15 G5 Kidney failure Vitamin B12 test may not yield results when protein level of sample is too elevated. Ordering Provider: REJI JEFFRIES Report Released Date/Time: Nov 19, 2024 10:36 AM Reporting Lab: [facility] [address] [facility] [address] Performing Lab: [place] [id number] B12 VITAMIN 699 pg/mL 213-816 Nov 19, 2024 11:51 AM [facility] 25-OH VITAMIN D SERUM Specime n Type: SERUM Comment: The National Institutes of Health (NIH) recommendations state: <12 ng/mL - Deficient 20 - 50 ng/mL - Optimal Levels - adequate for most people. >50 ng/mL - Increased risk of hypercalciuria/other health problems - clinical correlation is required. These reference ranges represent clinical decision values rather than population-based reference values. Ordering Provider: REJI JEFFRIES Report Released Date/Time: Nov 19, 2024 10:36 AM Reporting Lab: [place] [id number] Performing Lab: [place] [phone] 25-OH VITAMIN D 69.8 ng/mL H 20.0-50.0 Nov 19, 2024 11:51 AM [facility] CBC/PLT BLOOD Specimen Type: BLOOD No comment entered. Ordering Provider: REJI JEFFRIES Report Released Date/Time: Nov 19, 2024 10:36 AM Reporting Lab: [address] [address] Performing Lab: [place] [phone] WBC 9.3 10*3/uL 5.0-10.0 RBC 4.78 10*6/uL 4.6-6.2 HGB 14.2 g/dL 14.0-18.0 HCT 45.9 42.0-52.0 MCV 96.0 fL H 80.0-94.0 MCH 29.7 pg 27.0-31.0 MCHC 30.9 g/dL L 32.0-36.0 PLT 219 10*3/uL 150-450 MPV 9.8 fL 9.0-13.1 RDW 12.9 11.0-16.0 NRBC 0.0 0.0-0.0 Nov 19, 2024 11:51 AM [facility] GLYCOHEMOGLOBIN BLOOD Specimen Type: BLOOD Comment: [place] guidelines for A1c interpretation: Glycemic control targets are based on Shared Decision Making between clinicians and patients. Criteria used to establish an A1c target recommendation can be found at https://www.nv.gov/qualityandpatientsafety/ and include the use of result accuracy and precision(CV) of the A1c tests clinicians utilize at their own sites of practice. Values obtained from A1C measurements can vary. For typical A1C assays, a reported value of 7.0 could actually be between 6.72 and 7.28 if measured by a reference method. A reported value of 9.0 could actually be between 8.73 and 9.27. Ref: https://ngsp.org/CAPdata.asp. The in-house [employer] D-100 analyzer has a historical CV <= 2%. Contact the laboratory for further performance characteristics of this assay. Ordering Provider: REJI JEFFRIES Report Released Date/Time: Nov 19, 2024 10:36 AM Reporting Lab: [address] [phone] Performing Lab: [address] [address] GLYCOHEMOGLOBIN 7.0 H 4.4-5.6 Nov 19, 2024 11:51 AM [facility] LIPID PROFILE PLASMA Specimen Type: PLASM A Comment: Estimated Glomerular Filtration Rate (eGFR) calculated using the 2020 Chronic Kidney Disease-Epidemiology (CKD-EPI) Collaboration creatinine equation; units of measure are mL/min/1.73 m2. Results are only valid for adults (>=18 years) whose serum creatinine is in a steady state. eGFR calculations are not valid for patients with acute kidney injury and for patients on dialysis. Creatinine-based estimates of kidney function may also be inaccurate in patients with reduced creatinine generation due to decreased muscle mass (e.g., malnutrition, severe hypoalbuminemia, sarcopenia, chronic neuromuscular disease, amputations, severe heart failure or liver disease) and in patients with increased creatinine generation due to increased muscle mass (e.g., muscle builders, anabolic steroids) or increased dietary intake. As drug clearance is proportional to total GFR and not GFR indexed to body surface area (BSA), in individuals with a BSA substantially different than 1.73 m2, drug dosing should be based on the reported eGFR value de-indexed from BSA by multiplying by the individual's BSA and dividing by 1.73. CKD is diagnosed based on abnormalities of kidney structure or function, present for >3 months, with implications for health and disease. CKD is classified and staged based on cause, eGFR and albuminuria (quantified as urine albumin to creatinine ratio). An eGFR >60 mL/min/1.73 m2 in the absence of increased urine albumin excretion or structural abnormalities does not represent CKD. eGFR CKD Interpretation (mL/min/1.73 m2) stage >=90 G1 Normal 60-89 G2 Mild decrease 45-59 G3A Mild to moderate decrease 30-44 G3B Moderate to severe decrease 15-29 G4 Severe decrease <15 G5 Kidney failure Vitamin B12 test may not yield results when protein level of sample is too elevated. Ordering Provider: REJI JEFFRIES Report Released Date/Time: Nov 19, 2024 10:36 AM Reporting Lab: [address] [phone] Performing Lab: [address] [address] CHOLESTEROL 107 mg/dL 0-199 TRIGLYCERIDE 230 mg/dL H 0-149 HDL CHOLESTEROL 42 mg/dL 40-69 DIRECT LDL CHOL. 37 mg/dL 0-100 Nov 19, 2024 11:51 AM [facility] THYROID PROFILE PLASMA Specimen Type: PLASM A Comment: Estimated Glomerular Filtration Rate (eGFR) calculated using the 2020 Chronic Kidney Disease-Epidemiology (CKD-EPI) Collaboration creatinine equation; units of measure are mL/min/1.73 m2. Results are only valid for adults (>=18 years) whose serum creatinine is in a steady state. eGFR calculations are not valid for patients with acute kidney injury and for patients on dialysis. Creatinine-based estimates of kidney function may also be inaccurate in patients with reduced creatinine generation due to decreased muscle mass (e.g., malnutrition, severe hypoalbuminemia, sarcopenia, chronic neuromuscular disease, amputations, severe heart failure or liver disease) and in patients with increased creatinine generation due to increased muscle mass (e.g., muscle builders, anabolic steroids) or increased dietary intake. As drug clearance is proportional to total GFR and not GFR indexed to body surface area (BSA), in individuals with a BSA substantially different than 1.73 m2, drug dosing should be based on the reported eGFR value de-indexed from BSA by multiplying by the individual's BSA and dividing by 1.73. CKD is diagnosed based on abnormalities of kidney structure or function, present for >3 months, with implications for health and disease. CKD is classified and staged based on cause, eGFR and albuminuria (quantified as urine albumin to creatinine ratio). An eGFR >60 mL/min/1.73 m2 in the absence of increased urine albumin excretion or structural abnormalities does not represent CKD. eGFR CKD Interpretation (mL/min/1.73 m2) stage >=90 G1 Normal 60-89 G2 Mild decrease 45-59 G3A Mild to moderate decrease 30-44 G3B Moderate to severe decrease 15-29 G4 Severe decrease <15 G5 Kidney failure Vitamin B12 test may not yield results when protein level of sample is too elevated. Ordering Provider: REJI JEFFRIES Report Released Date/Time: Nov 19, 2024 10:36 AM Reporting Lab: [address] [phone] Performing Lab: [address] [address] TSH 1.0785 m[IU]/mL 0.3500-4.9400 FREE T4 0.92 ng/mL 0.70-1.48 Vital Signs: All taken on the encounter date This section contains inpatient and outpatient Vital Signs collected on the date of the Encounter. Date/Time Temperature Pulse Blood Pressure Respiratory Rate SP02 Pain Height Weight Body Mass Index Source Nov 19, 2024 09:42 AM 98.1 92 127/62 18 95 0 62 [place] [facility] Nov 19, 2024 09:42 AM 186 34 [place] [facility] Immunizations: All administered on the encounter date This section contains immunizations associated to the Encounter. Immunization Series Date Issued Administered By Site Reaction Lot Number CVX Code Drug Selector Packer Comment(s) Source RSV, BIVALENT, PROTEIN SUBUNIT RSVPREF, DILUENT RECONSTITUTED , 0.5 ML, PF Nov 19, 2024 OCTAVIOMIRTHAMartha RIGHT DELTO ID [id number] [employer] ADMINISTERE D AT [place], [employer] [employer] DILUENT LOT#:[id number] EXP DATE:. VIAL ADAPTER LOT#:[id number] EXP DATE:2027 [place] [facility] TDAP Nov 19, 2024 Martha ROYAL LEFT DELTO ID [id number] [employer] ADMINISTERE D AT [place], [place] [facility] Social History: Smoking Status (Most current) and Tobacco Use (All prior to encounter date) This section includes the most current, and the historical, smoking and tobacco- related health factors from the [place] facility where the Encounter took place. Current Smoking Status This section includes the most current smoking, or tobacco-related health factor, from the [place] facility where the Encounter took place. Date/Time Current Smoking Status Comment Facil ity Nov 19, 2024 09:30 AM [facility]-TOBACCO USE FOR YUVLA CIGARETTES [facility] Tobacco Use History This section includes a history of the smoking, or tobacco-related health factors, that were collected on or before the date of the Encounter. The data comes from the [place] facility where the Encounter took place. Date/Time Smoking Status/Tobacco Use Comment F acility Nov 19, 2024 09:30 AM [place]-TOBACCO USE FOR YUVAL CIGARETTES [facility] Advance Directives: All historical and current Section Date Range: From patient's date of to the date document was created. This section includes ALL of a patient's completed or amended [place] Advance and Rescinded Directives. The entries below indicate that a directive exists for the patient, but an actual copy is not included with this document. The data comes from all [place] facilities. Date Advance Directives Provider Source Dec 21, 2024 ADVANCE DIRECTIVE DISCUSSION Thu MULLER [facility] Dec 08, 2024 ADVANCE DIRECTIVE BERT WALKER [facility] Encounter Notes: All associated encounter notes This section contains the clinical notes associated to the Encounter. Date/Time Encounter Note(s) Provider Source Nov 19, 2024 04:21 PM PRIMARY CARE LETTERS: LOCAL TITLE: PC LETTER TEST RESULTS STANDARD TITLE: PRIMARY CARE LETTERS DATE OF NOTE: NOV 19, 2024@16:21 ENTRY DATE: NOV 19, 2024@16:22:08 AUTHOR: REJI JEFFRIES EXP COSIGNER: URGENCY: STATUS: COMPLETED [facility] [address] [place] [address] Mr. MEHUL MA [address] [address] NOV 19, 2024 Dear Mr. MEHUL MA Your Primary Care Provider has reviewed your recent tests, and wanted us to let you know that everything looked stable. A copy of your test results is attached below. You may notice that some tests are listed as outside normal limits. Your Primary Care Provider has reviewed these results, and has determined these are not considered to be significant. Therefore, they do not require further investigation or treatment. There are no recommended changes in your medications or treatment plan at this time. Please call us if you have questions or problems. You can reach us at (toll free number) or [phone] (local number). If you are enrolled in [employer], and utilize those services, you may prefer to contact us by secure message. Thank you for your service to our Country. We are honored to be able to provide medical care to you. Recent labwork Collection DT Specimen Test Name Result Units Ref Range 11/19/2024 11:51 BLOOD !! GLYCOHEMOGLOBIN 7.0 H % 4.4 - 5.6 11/19/2024 11:51 BLOOD WBC 9.3 K/cmm 5.0 - 10.0 RBC 4.78 M/cmm 4.6 - 6.2 HGB 14.2 g/dL 14.0 - 18.0 HCT 45.9 % 42.0 - 52.0 MCV 96.0 H fL 80.0 - 94.0 MCH 29.7 pg 27.0 - 31.0 MCHC 30.9 L g/dL 32.0 - 36.0 RDW 12.9 % 11.0 - 16.0 PLT 219 K/cmm 150 - 450 MPV 9.8 fL 9.0 - 13.1 NRBC 0.0 % 0.0 - 0.0 11/19/2024 11:51 SERUM !! 25-OH VITAMIN D 69.8 H ng/mL 20.0 - 50.0 11/19/2024 11:51 PLASMA!! CHOLESTEROL 107 mg/dL 0 - 199 !! TRIGLYCERIDE 230 H mg/dL 0 - 149 !! HDL CHOLESTEROL 42 mg/dL 40 - 69 !! DIRECT LDL CHOL. 37 mg/dL 0 - 100 !! SODIUM 138 mmol/L 136 - 145 !! POTASSIUM 4.6 mmol/L 3.5 - 5.1 !! CHLORIDE 95 L mmol/L 98 - 107 !! CO2 35 H mmol/L 22 - 29 !! ANION GAP 8.0 mEq/L 3 - 19 !! GLUCOSE 151 H mg/dL 74 - 100 !! UREA NITROGEN 19 mg/dL 9 - 25 !! CREATININE 1.30 H mg/dL 0.72 - 1.25 !! eGFR (CKD-EPI) 56 SEE EVAL !! CALCIUM 10.3 H mg/dL 8.4 - 10.2 !! TOTAL PROTEIN 9.1 H g/dL 6.4 - 8.3 !! ALBUMIN 4.4 g/dL 3.5 - 5.2 !! TOTAL BILIRUBIN 0.5 mg/dL 0.2 - 1.2 !! BILIRUBIN-DIRECT 0.2 mg/dL 0.0 - 0.5 !! AST 17 U/L 5 - 34 !! ALT 19 U/L 0 - 55 !! ALK PHOS 78 U/L 40 - 150 !! B12 VITAMIN 699 pg/mL 213 - 816 !! TSH 1.0785 mIU/mL 0.3500 - 4.9400 !! FREE T4 0.92 ng/mL 0.70 - 1.48 !! Indicates COMMENTS AVAILABLE...Refer to Interim Lab Report. Recent radiology results No data available MEHUL MA Mr. MEHUL MA [address] [place] [address] Dear MEHUL MA This letter is to inform you of your recent lab results related to your diabetes. This looks at how your diabetes has been over the past 3 months. Below is your results. Your glycohemoglobin value was SLT - Lab Tests Selected Collection DT Specimen Test Name Result Units Ref Range 11/19/2024 11:51 BLOOD !! GLYCOHEMOGLOBIN 7.0 H % 4.4 - 5.6 !! Indicates COMMENTS AVAILABLE...Refer to Interim Lab Report. %. You can estimate your blood sugar average by the following chart: Glycohemoglogin: Blood sugar range: 4-6% 30-120 6.1-7% 121-150 7.1-8% 151-180 8.1-9% 181-210 9.1-10% 211-240 10.1-11% 241-270 11.1-12% 271-300 12.1-13% 301-330 13.1-14% 331-360 >14% >360 The goal for your glycohemoglobin is less than 7% OR LESS THAN 8% IF ON INSULIN THERAPY. Medication changes: Thank you for allowing me to take part in your health care. If you have any questions, please call telephone care and leave a message so someone can contact you: TELEPHONE CARE: Sincerely, Reji Jeffries, MSN, [employer] Primary Care Nurse Practitioner MEHUL MA Mr. MEHUL MA [address] [place] [address] [facility] have diabetes. Fortunately, by controlling your blood sugars, you can prevent the devastating complications related to diabetes such as blindness, amputation, kidney failure, diabetic neuropathies and eventually early . Here is a check list of things you need to do to take care of your diabetes: 1. Check your blood sugar as recommended and do whatever necessary to keep it close to 100 mg/dl 2. Eat right-low fat, high in fiber, and contain enough calories to maintain a normal body weight for you. Let me know if you would like nutrition counseling. 3. Exercise 30 minutes daily. 4. Keep yourself educated with up to date information regarding diabetes. Let me know if you are interested in attending a diabetic education class. 5. Your hemoglobin a1c needs to be checked at least 2 times per year. 6. Yearly eye exam with dilation. 7. Urine microalbumin yearly-this is an indicator of kidney damage caused by diabetes 8. Yearly foot exam by primary care provider 9. Check your own feet daily and protect your feet with well fitting shoes or have your family members look at your feet daily 10. See your dentist and maintain good oral hygiene 11. Maintain good BP control; Your BP should be less than 130/80 12. Your cholesterol needs to be checked yearly. Total cholestrol less than 200 mg/dl, LDL (bad cholestrol) should be less than 100 mg/dl and your HDL (good cholesterol) should be greater than 45 mg/dl, and your triglycerides (blood fat) should be less than 150 mg/dl. 13. Get a yearly flu shot and check with your pcp about a pneumonia vaccine 14. Do not smoke This is long list of items, but many are good healthy lifestyle choices for everyone, especially important for diabetics. This letter is for your personal information in order to maintain good health with diabetes. Please call numbers below if you have any questions or concerns. TELEPHONE CARE: Thank you for allowing me to participate in your health care. Sincerely, Reji Jeffries, MSN, [employer] Primary Care Nurse Practitioner Sincerely, /renetta/ REJI JEFFRIES, MSN, [facility] [facility] REGISTERED NURSE Patient Record Number [id number] REJI JEFFRIES [facility] Nov 19, 2024 01:13 PM ADMINISTRATIVE NOTE: LOCAL TITLE: ESSENTIAL MEDICATIONS LIST FOR REVIEW (EMLR) STANDARD TITLE: ADMINISTRATIVE NOTE DATE OF NOTE: NOV 19, 2024@13:13 ENTRY DATE: NOV 19, 2024@13:13:22 AUTHOR: REJI JEFFRIES EXP COSIGNER: URGENCY: STATUS: COMPLETED Active and Recently Outpatient Medications (including Supplies): Pending Outpatient Medications Status 1) GUAIFENESIN 400MG TAB TAKE TWO TABLETS BY MOUTH THREE TIMES PENDING A DAY NEEDED Indication: FOR CHEST MUCUS/CONGESTION 2) RIVAROXABAN FOR DVT/PE/AFIB TAB TAKE 2.5MG BY MOUTH PENDING TWICE A DAY -TAKE WITH EVENING MEAL. CALL ANTICOAGULATION CLINIC [phone] WITH QUESTIONS OR CONCERNS Indication: TO THIN BLOOD Active Non-VA Medications Status 1) Non-VA ACETAMINOPHEN 325MG TAB 650MG MOUTH TWICE A DAY ACTIVE Indication: FOR PAIN 2) Non-VA APOAEQUORIN 10MG CAP/TAB 10MG MOUTH DAILY ACTIVE Indication: FOR MEMORY 3) Non-VA ASCORBIC ACID 500MG TAB 500MG MOUTH DAILY ACTIVE Indication: FOR VITAMIN C SUPPLEMENT 4) Non-VA ASPIRIN 81MG EC TAB 81MG MOUTH DAILY ACTIVE Indication: FOR HEART 5) Non-VA CHOLECALCIF 25MCG (D3-1,000UNIT) TAB 25MCG MOUTH ACTIVE DAILY Indication: FOR VITAMIN D SUPPLEMENT 6) Non-VA FERROUS GLUCONATE 324-325MG TAB UD 325MG MOUTH EVERY ACTIVE OTHER DAY Indication: FOR ANEMIA 7) Non-VA FUROSEMIDE 40MG TAB 40MG MOUTH TWICE A DAY ACTIVE Indication: FOR FLUID 8) Non-VA GABAPENTIN 600MG TAB 600MG MOUTH TWICE A DAY ACTIVE Indication: FOR NERVE PAIN 9) Non-VA KRILL OIL 2 CAPS/TABS MOUTH DAILY ACTIVE Indication: UNKNOWN 10) Non-VA LOSARTAN 50MG TAB 50MG MOUTH DAILY ACTIVE Indication: FOR BLOOD PRESSURE 11) Non-VA METFORMIN HCL 500MG 24HR SA TAB 1000MG MOUTH DAILY ACTIVE Indication: FOR BLOOD SUGAR 12) Non-VA MULTIVITAMIN CAP/TAB 1 CAP/TAB MOUTH DAILY ACTIVE Indication: UNKNOWN 13) Non-VA NIACIN (SLO-NIACIN) 500MG TAB,SA 500MG MOUTH AT ACTIVE BEDTIME Indication: FOR CHOLESTEROL 14) Non-VA NITROGLYCERIN 0.4MG 200D ORAL SPRAY 1 SPRAY (0.4MG) ACTIVE UNDER THE TONGUE DIRECTED NEEDED Indication: FOR CHEST PAIN 15) Non-VA PANTOPRAZOLE NA 40MG EC TAB 40MG MOUTH ONCE A DAY 30 ACTIVE MINUTES BEFORE A MEAL Indication: FOR HEARTBURN 16) Non-VA ROSUVASTATIN CA TAB 20MG 20MG MOUTH AT BEDTIME ACTIVE Indication: FOR CHOLESTEROL 17) Non-VA SPIRONOLACTONE 25MG TAB 50MG MOUTH DAILY ACTIVE Indication: FOR HEART FAILURE 18) Non-VA TRELEGY ELLIPTA 100/62.5/25MCG INH 30D 1 INHALATION ACTIVE MOUTH DAILY Indication: FOR COPD 19) Non-VA ZINC CAPSULE 1 CAPSULE MOUTH DAILY ACTIVE Indication: UNKNOWN 21 Total Medications Allergies: local and remote Patient has answered NKA No Remote Allergy/ADR Data available for this patient Review of medications include: Patient allergies (Remote and Local) and active and pending prescriptions dispensed from this [place] (local) and dispensed from another [place] or [place] facility (remote and pending) as well as local inpatient orders (pending and active) and clinic medications (IMOs), locally documented non-VA medications and local prescriptions that have or been discontinued in the past 90 days. With the exception of Allergies, if a category is not listed below, it means there were no relevant medications for the patient. MRT5-Local & Remote Allergies Inpatient Active/Pending: RSV VACCINE INJ,LYPHL Directions: 1 VIAL (0.5ML) Schedule: ONCE Issued: 11/19/24 Expires: 11/20/24 Status: ACTIVE No remote medications found. Outpatient Active/Pending: No local medications found. No remote medications found. GUAIFENESIN 400MG TAB Directions: TAKE TWO TABLETS BY MOUTH THREE TIMES A DAY NEEDED Quantity: 84 Special: TAKE TWO TABLETS PO TID PRN Status: PENDING RIVAROXABAN FOR DVT/PE/AFIB TAB Directions: TAKE 2.5MG BY MOUTH TWICE A DAY -TAKE WITH EVENING MEAL. CALL ANTICOAGULATION CLINIC [phone] WITH QUESTIONS OR CONCERNS Quantity: 90 Special: TAKE 2.5MG PO BID Status: PENDING No remote medications found. Inpatient Nonva Medications: ACETAMINOPHEN 325MG TAB Directions: 650MG MOUTH TWICE A DAY Status: ACTIVE APOAEQUORIN 10MG CAP/TAB Directions: 10MG MOUTH DAILY Status: ACTIVE ASCORBIC ACID 500MG TAB Directions: 500MG MOUTH DAILY Status: ACTIVE ASPIRIN 81MG EC TAB Directions: 81MG MOUTH DAILY Status: ACTIVE CHOLECALCIF 25MCG (D3-1,000UNIT) TAB Directions: 25MCG MOUTH DAILY Status: ACTIVE FERROUS GLUCONATE 324-325MG TAB UD Directions: 325MG MOUTH EVERY OTHER DAY Status: ACTIVE FUROSEMIDE 40MG TAB Directions: 40MG MOUTH TWICE A DAY Status: ACTIVE GABAPENTIN 600MG TAB Directions: 600MG MOUTH TWICE A DAY Status: ACTIVE KRILL OIL Directions: 2 CAPS/TABS MOUTH DAILY Status: ACTIVE LOSARTAN 50MG TAB Directions: 50MG MOUTH DAILY Status: ACTIVE METFORMIN HCL 500MG 24HR SA TAB Directions: 1000MG MOUTH DAILY Status: ACTIVE MULTIVITAMIN CAP/TAB Directions: 1 CAP/TAB MOUTH DAILY Status: ACTIVE NIACIN (SLO-NIACIN) 500MG TAB,SA Directions: 500MG MOUTH AT BEDTIME Status: ACTIVE NITROGLYCERIN 0.4MG 200D ORAL SPRAY Directions: 1 SPRAY (0.4MG) UNDER THE TONGUE DIRECTED NEEDED Status: ACTIVE PANTOPRAZOLE NA 40MG EC TAB Directions: 40MG MOUTH ONCE A DAY 30 MINUTES BEFORE A MEAL Status: ACTIVE ROSUVASTATIN CA TAB 20MG Directions: 20MG MOUTH AT BEDTIME Status: ACTIVE SPIRONOLACTONE 25MG TAB Directions: 50MG MOUTH DAILY Status: ACTIVE TRELEGY ELLIPTA 100/62.5/25MCG INH 30D Directions: 1 INHALATION MOUTH DAILY Status: ACTIVE ZINC CAPSULE Directions: 1 CAPSULE MOUTH DAILY Status: ACTIVE Inpatient : No local medications found. No remote medications found. Inpatient Discontinued: No local medications found. No remote medications found. /renetta/ REJI JEFFRIES MSN, [facility] REGISTERED NURSE Signed: 11/19/2024 13:13 [facility] Nov [facility], [facility]24 01:12 PM ADDENDUM: LOCAL TITLE: Addendum STANDARD TITLE: ADDENDUM DATE OF NOTE: NOV 19, 2024@13:12:35 ENTRY DATE: NOV 19, 2024@13:12:36 AUTHOR: REJI JEFFRIES EXP COSIGNER: URGENCY: STATUS: COMPLETED PLEASE ASSIGN TO GIOVANNA/COBY /renetta/ YASMIN ONEILL, [facility] REGISTERED NURSE Signed: 11/19/2024 13:12 Receipt Acknowledged By: 02/14/2025 21:42 /renetta/ EL HOLLIS PCMM Coordinator --- Original Document --- 11/19/24 PC NEW PATIENT CONSULT RESPONSE: NOTE DATED:NOV 19, 2024 MEHUL MA [address] [place] [id number] 80 [place] VISIT: 11/19/24 09:30 Type of Visit Today: ( )episodic ( )routine f/u ( x)NEW PATIENT PT PROBLEM LIST: Active problems - Computerized Problem List is the source for the followin. Chronic obstructive pulmonary disease 2. CAD - Coronary artery disease 3. H/O: pulmonary embolus 4. DM - Diabetes mellitus 5. Gastroesophageal reflux disease 6. 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 Outpatient Medications: ACTIVE OUTPATIENT PRESCRIPTIONS - NONE FOUND MEDICATION RECONCILIAITION: - The Outpatient Essential Medication List for review (EMLR) was reviewed with the patient/caregiver and the patient was provided an updated reconciled medication list- - Discrepancies were corrected or sent to the ordering provider to correct Allergies: Patient has answered NKA HISTORY OF PRESENT ILLNESS:here TODAY TO ESTABLISH CARE AT [facility] reports med list as accurate -LOCAL PCP: DR CORTEZ IN [facility] CARDS: DR TROY IN [place] -[facility] PULM: DR MORRISON IN [facility] PODIATRY: DR SOLARES IN [place] - Chronic obstructive pulmonary disease: PORTABLE O2 IN USE--FOLLOWS WITH [facility] PULM; REQUESTS GUAIFENESIN FROM [facility] -CAD/HEART FAILURE - Coronary artery disease; HX OF CABG 4 GRAFTS THEN 2 STENTS FOLLOWS WITH [facility] CARDIOLOGY - H/O: pulmonary embolus--VET REQUESTS TO GET XARELTO 2.5MG BID FROM [facility] - DM - Diabetes mellitus: REPORTS HOME BS 135-180--CURRENT REGIMEN OF METFORMIN - Gastroesophageal reflux disease: CURRENT REGIMEN OF PANTOPRAZOLE General: Negative for weight changes, fevers, fatigue, and weakness Skin: Negative for recent changes or new suspicious lesions Eyes: Negative for recent acute vision change ENT: Negative for deafness, tinnitus, or ear pain; Negative for chronic nasal discharge Respiratory: Negative for wheezing, dyspnea, nocturnal dyspnea, cough, hemoptysis CV: Negative for palpitations, tachycardia, chest pain/discomfort, exertional dyspnea, lower extremity edema GI: Negative for recent changes in bowel habits or bleeding from bowels : Negative for dysuria, frequency, urgency, incontinence, difficulty with stream M/S: Negative for new acute joint pain or loss of strength/function Neuro: Negative for syncope or LOC Psych: Negative for SI/HI PHYSICAL EXAM: TODAY'S VITAL SIGNS: 127/62 (11/19/2024 09:42) 92 (11/19/2024 09:42) 18 (11/19/2024 09:42) 98.1 F [36.7 C] (11/19/2024 09:42) 0 (11/19/2024 09:42) NOV 19, 2024@09:42:26 -- PULSE OXIMETRY: 95 (with supplemental O2 2.0 l/min via NASAL CANNULA) GENERAL: vet alert and cooperative in NAD; VET PRESENTS WITH SKIN: [place], warm, and dry with good turgor; no suspicious lesions noted HEENT: Normocephalic, no conjunctiva infections-sclera white, nares patent, oral mucosa pink w/o lesions or ulcerations NECK: supple without JVD LUNGS: CTA Bilat, respiratory effort unlabored at rest WEARING PORTABLE O2 CARD: RRR w/o M/R/G ABD: non-tender and nondistended EXT: No edema or cyanosis M/S: ambulatory, adequate upper and lower extremity strength NEURO: General behavior, LOC, thought content, and emotional status normal. No involuntary movements. Coordination and sensory function intact LABS: PANEL 1 - NONE FOUND PANEL 2 - NONE FOUND CBC/PLT, BLOOD - None Found Lipid Prof - NONE FOUND Z GLYCOHEMOGLOBIN (HPLC) - NONE FOUND MICROALBUMIN QUANT, URINE - None Found Z PROSTATIC ANTIGEN - NONE FOUND THYROID PROFILE, SERUM - None Found * ASSESSMENT/PLAN: - Chronic obstructive pulmonary disease:-FOLLOWS WITH NON VA PULM; GUAIFENESIN 800MG TID PRN FOR MUCUS MANAGEMENT -CAD/HEART FAILURE - Coronary artery disease; HX OF CABG 4 GRAFTS THEN 2 STENTS FOLLOWS WITH NON [facility] CARDIOLOG[facility]--FOLLOWS WITH NON [facility] CARDI[facility] - H/O: pulmonary embolus--PHARMACY CONSULT FOR XARELTO 2.5MG BID - DM - Diabetes mellitus: CHECK GLYCO; CONT METFORMIN - Gastroesophageal reflux disease: CONT PANTOPRAZOLE HEALTH MAINTENANCE: FLU VACCINE:2023 PNEUMOVAX: TDAP: COLONOSCOPY: FIT: PSA: LIPID PROFILE: RSV: REQUESTS TODAY CONSULTS: (x ) MEDICATION LIST GIVEN AND REVIEWED WITH PATIENT ( ) active with my [facility] vet The /caregiver verbalized understanding of the topics covered/discussed in today's visit. [place]/caregiver given opportunity to ask questions to provider. I spent 60 minutes today performing medically necessary history and exam, managing the patients conditions, documenting clinical info in health record, along with the following: Preparing to see pt. (ex.: review of tests, last visit notes) Obtain/review separately obtained history Ordering tests, procedures, medications Refer and/or communicate with other providers regarding patient Independently interpreting results & communicating results to patient/caregiver Care coordination (not separately reported) Counseling and education pt/family/caregiver Patient advised if an appointment is needed sooner than the recommended recall, call telephone care for followup. RETURN TO CLINIC:8M/[PRN RECALL:06/2025 SCHEDULE: /renetta/ REJI JEFFRIES MSN, [facility] REGISTERED NURSE Signed: 11/19/2024 13:12 [facility] Nov 19, 2024 10:06 AM CONSULT: LOCAL TITLE: PC NEW PATIENT CONSULT RESPONSE STANDARD TITLE: CONSULT DATE OF NOTE: NOV 19, 2024@10:06 ENTRY DATE: NOV 19, 2024@10:06:55 AUTHOR: REJI JEFFRIES EXP COSIGNER: URGENCY: STATUS: COMPLETED PC NEW PATIENT CONSULT RESPONSE Has ADDENDA NOTE DATED:NOV 19, 2024 MEHUL MA [address] [id number] [place] VISIT: 11/19/24 09:30 Type of Visit Today: ( )episodic ( )routine f/u ( x)NEW PATIENT PT PROBLEM LIST: Active problems - Computerized Problem List is the source for the followin. Chronic obstructive pulmonary disease 2. CAD - Coronary artery disease 3. H/O: pulmonary embolus 4. DM - Diabetes mellitus 5. Gastroesophageal reflux disease 6. 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 Outpatient Medications: ACTIVE OUTPATIENT PRESCRIPTIONS - NONE FOUND MEDICATION RECONCILIAITION: - The Outpatient Essential Medication List for review (EMLR) was reviewed with the patient/caregiver and the patient was provided an updated reconciled medication list- - Discrepancies were corrected or sent to the ordering provider to correct Allergies: Patient has answered NKA HISTORY OF PRESENT ILLNESS:here TODAY TO ESTABLISH CARE AT [facility] reports med list as accurate -LOCAL PCP: DR CORTEZ IN [place] -[facility] CARDS: DR TROY IN [place] -[facility] PULM: DR MORRISON IN [facility] PODIATRY: DR SOLARES IN [place] - Chronic obstructive pulmonary disease: PORTABLE O2 IN USE--[place]; REQUESTS GUAIFENESIN FROM [facility] -CAD/HEART FAILURE - Coronary artery disease; HX OF CABG 4 GRAFTS THEN 2 STENTS FOLLOWS WITH NON [place] CARDIOLOG[place] - H/O: pulmonary embolus--VET REQUESTS TO GET XARELTO 2.5MG BID FROM [facility] - DM - Diabetes mellitus: REPORTS HOME BS 135-180--CURRENT REGIMEN OF METFORMIN - Gastroesophageal reflux disease: CURRENT REGIMEN OF PANTOPRAZOLE General: Negative for weight changes, fevers, fatigue, and weakness Skin: Negative for recent changes or new suspicious lesions Eyes: Negative for recent acute vision change ENT: Negative for deafness, tinnitus, or ear pain; Negative for chronic nasal discharge Respiratory: Negative for wheezing, dyspnea, nocturnal dyspnea, cough, hemoptysis CV: Negative for palpitations, tachycardia, chest pain/discomfort, exertional dyspnea, lower extremity edema GI: Negative for recent changes in bowel habits or bleeding from bowels : Negative for dysuria, frequency, urgency, incontinence, difficulty with stream M/S: Negative for new acute joint pain or loss of strength/function Neuro: Negative for syncope or LOC Psych: Negative for SI/HI PHYSICAL EXAM: TODAY'S VITAL SIGNS: 127/62 (11/19/2024 09:42) 92 (11/19/2024 09:42) 18 (11/19/2024 09:42) 98.1 F [36.7 C] (11/19/2024 09:42) 0 (11/19/2024 09:42) NOV 19, 2024@09:42:26 -- PULSE OXIMETRY: 95 (with supplemental O2 2.0 l/min via NASAL CANNULA) GENERAL: vet alert and cooperative in NAD; VET PRESENTS WITH SKIN: [place], warm, and dry with good turgor; no suspicious lesions noted HEENT: Normocephalic, no conjunctiva infections-sclera white, nares patent, oral mucosa pink w/o lesions or ulcerations NECK: supple without JVD LUNGS: CTA Bilat, respiratory effort unlabored at rest WEARING PORTABLE O2 CARD: RRR w/o M/R/G ABD: non-tender and nondistended EXT: No edema or cyanosis M/S: ambulatory, adequate upper and lower extremity strength NEURO: General behavior, LOC, thought content, and emotional status normal. No involuntary movements. Coordination and sensory function intact LABS: PANEL 1 - NONE FOUND PANEL 2 - NONE FOUND CBC/PLT, BLOOD - None Found Lipid Prof - NONE FOUND Z GLYCOHEMOGLOBIN (HPLC) - NONE FOUND MICROALBUMIN QUANT, URINE - None Found Z PROSTATIC ANTIGEN - NONE FOUND THYROID PROFILE, SERUM - None Found * ASSESSMENT/PLAN: - Chronic obstructive pulmonary disease:-FOLLOWS WITH NON [facility] PULM; GUAIFENESIN 800MG TID PRN FOR MUCUS MANAGEMENT -CAD/HEART FAILURE - Coronary artery disease; HX OF CABG 4 GRAFTS THEN 2 STENTS [place] WITH NON [place]--[place]OWS WITH [place] - H/O: pulmonary embolus--PHARMACY CONSULT FOR XARELTO 2.5MG BID - DM - Diabetes mellitus: CHECK GLYCO; CONT METFORMIN - Gastroesophageal reflux disease: CONT PANTOPRAZOLE HEALTH MAINTENANCE: FLU VACCINE:2023 PNEUMOVAX: TDAP: COLONOSCOPY: FIT: PSA: LIPID PROFILE: RSV: REQUESTS TODAY CONSULTS: (x ) MEDICATION LIST GIVEN AND REVIEWED WITH PATIENT ( ) active with my [facility] vet The /caregiver verbalized understanding of the topics covered/discussed in today's visit. [place]/caregiver given opportunity to ask questions to provider. I spent 60 minutes today performing medically necessary history and exam, managing the patients conditions, documenting clinical info in health record, along with the following: Preparing to see pt. (ex.: review of tests, last visit notes) Obtain/review separately obtained history Ordering tests, procedures, medications Refer and/or communicate with other providers regarding patient Independently interpreting results & communicating results to patient/caregiver Care coordination (not separately reported) Counseling and education pt/family/caregiver Patient advised if an appointment is needed sooner than the recommended recall, call telephone care for followup. RETURN TO CLINIC:8M/[PRN RECALL:06/2025 SCHEDULE: /YASMIN Delaney, [employer] [employer] REGISTERED NURSE Signed: 11/19/2024 13:12 11/19/2024 ADDENDUM STATUS: COMPLETED PLEASE ASSIGN TO AMNA BELLA /YASMIN Delaney, [employer]ACT[employer] REGISTERED NURSE Signed: 11/19/2024 13:12 Receipt Acknowledged By: * AWAITING SIGNATURE * EL HOLLIS,REJI RUFF [facility] Nov 19, 2024 09:46 AM PRIMARY CARE NURSING NOTE: LOCAL TITLE: Pc Health Tech/syruper Note STANDARD TITLE: PRIMARY CARE NURSING NOTE DATE OF NOTE: NOV 19, 2024@09:46 ENTRY DATE: NOV 19, 2024@09:46:33 AUTHOR: VIOLETA ROYAL COSIGNER: URGENCY: STATUS: COMPLETED Pc Health Tech/syruper Note Has ADDENDA The patient was given a list of his current medications, instructed to review and discuss any changes or problems with their provider. Patient advised to carry a list of current medications and any allergies with them in the event of emergency situations. Yes - [place]/Caregiver verbalized understanding of topics discussed and education provided Alcohol Use Screen (AUDIT-C): Alcohol Screen: SCREEN FOR ALCOHOL (AUDIT-C) An alcohol screening test (AUDIT-C) was negative (score=0). 1. How often did you have a drink containing alcohol in the past year? Consider a drink to be a 12 ounce can or bottle of regular beer, 8 ounces of malt liquor, a 5 ounce glass of table wine, or a 1.5 ounce shot of liquor (like scotch, gin, or vodka). Never 2. How many drinks containing alcohol did you have on a typical day when you were drinking in the past year? Response not required due to responses to other questions. 3. How often did you have six or more drinks on one occasion in the past year? Response not required due to responses to other questions. Depression Screening: Perform PHQ-2 A PHQ-2 screen was performed. The score was 0 which is a negative screen for depression. Over the past two weeks, how often have you been bothered by the following problems? 1. Little interest or pleasure in doing things Not at all 2. Feeling down, depressed, or hopeless Not at all Suicide Screen: C-SSRS Screening [place] Suicide Severity Rating Scale (C-SSRS) screener 1. Over the past month, have you wished you were or wished you could go to sleep and not wake up? No 2. Over the past month, have you had any actual thoughts of killing yourself? No 3. Over the past month, have you been thinking about how you might do this? Response not required due to responses to other questions. 4. Over the past month, have you had these thoughts and had some intention of acting on them? Response not required due to responses to other questions. 5. Over the past month, have you started to work out or worked out the details of how to kill yourself? Response not required due to responses to other questions. 6. If yes, at any time in the past month did you intend to carry out this plan? Response not required due to responses to other questions. 7. In your lifetime, have you ever done anything, started to do anything, or prepared to do anything to end your life (for example, collected pills, obtained a gun, gave away valuables, went to the roof but didn't jump)? Yes 8. If YES, was this within the past 3 months? No Homelessness/Food Insecurity Screen: In the past 2 months, have you been living in stable housing that you own, rent, or stay in as part of a household? Yes - Living in stable housing. Are you worried or concerned that in the next 2 months you may NOT have stable housing that you own, rent, or stay in as part of a household? No - Not worried about housing near future The [place] reports the following: Within the past 12 months, you worried whether your food would run out before you got money to buy more. Never true Within the past 12 months, the food you bought just didn't last and you didn't have money to get more. Never true ADL/IADL Functional Measures(V9): Incontinence Screen: Within the past 12 months, has the patient had any characteristics of incontinence (ability, voiding, leakage, etc.)? YES - Incontinence is a problem for this patient. Is urinary incontinence NEW for this patient? NO - Incontinence is NOT a new problem. What is the current treatment? wear depends Falls Screen: Patient reported falls within the past 12 months. Patient reported 2 or more falls in the past 12 months. Dementia Warning Signs: Please indicate below whether the patient or caregiver report any warning signs of Dementia? No warning signs of dementia noted. Looney Index of [place] in Activities of Daily Living: LOONEY INDEX FOR ADL ASSESSMENT: LOONEY Index of [place] in Activities of Daily Living was completed at this encounter. BATHING: Patient needs no supervision, direction or personal assistance with bathing. DRESSING: Patient needs no supervision, direction or personal assistance with dressing. TOILETING: Patient needs no supervision, direction or personal assistance with toileting. TRANSFERRING: Patient needs no supervision, direction or personal assistance with transferring. CONTINENCE: Patient needs no supervision, direction or personal assistance with bowel continence. FEEDING: Patient needs no supervision, direction or personal assistance with feeding/eating. ENTER TOTAL SCORE BELOW: TOTAL POINTS: = [ 6 ] NOTE: 6-5 = FULL FUNCTION (patient independent) INSTRUMENTAL ACTIVITIES OF DAILY LIVING (IADL) SCALE ([place]) Telephone: 1 point - Looks up numbers, dials, receives and makes calls without help Shoppin point - Takes care of all shopping needs independently Food preparation: 1 point - Plans, prepares, and serves adequate meals independently Housekeepin point - Maintains house alone or with occasional assistance (e.g., heavy work domestic help ) Laundry: 1 point - Able to do personal laundry completely. Mode of transportation: 1 point - Travels independently on public transportation or drives own car Responsibility for own medications: 1 point - Is responsible for taking medication in correct dosages at correct time Ability to handle finances: 1 point - Manages financial matters independently (budgets, writes checks, pays rent and bills, goes to bank), collects and keeps track of income SCORING: The total score may range from 0 - 8. A lower score indicates a higher level of dependence. Total score: 8 points Learning Readiness Assessment: Preferred language for discussing health care Bulgarian NEW ASSESSMENT LEARNING BARRIERS Visual Barrier Comment: glasses READING LIMITATIONS PREFERRED METHODS FOR LEARNING Written/Printed Material INTERESTED IN LEARNING (MOTIVATED) Yes, interested in learning what? Comment: his healthcare PERSON BEING EDUCATED TODAY Patient Education was provided on the following topics RESPONSE Verbalizes Successfully Tobacco Use Screening: The patient is a former cigarette smoker. Quit smoking GREATER THAN OR EQUAL to 15 years. The patient has never used other types of tobacco. /renetta/ GITA ROYAL LPN LPN Signed: 11/19/2024 10:02 11/19/2024 ADDENDUM STATUS: COMPLETED Tdap Immunization: Administered: TDAP Date Administered: Nov 19, 2024 11:18 Selector Packer: [employer] Lot: [id number] Exp Date: Aug 25, 2026 NDC: [id number] Admin Route/Site: INTRAMUSCULAR/LEFT DELTOID Dosage: 0.5mL Vaccine Information Statement(s): TDAP (TETANUS, DIPHTHERIA, PERTUSSIS) VACCINE VIS Sep 25, 2024 (EQUATORIAL GUINEAN) Order By: Cj Administered By: Gita Royal The TETANUS/DIPHTHERIA/PERTUSSI S (TDAP) Vaccine Information Statement (VIS) was reviewed with the patient/caregiver which lists the benefits and risks of the vaccine and the risks of not receiving the Tdap vaccine. The patient/caregiver denied any prior severe reaction to this vaccine or its components or a severe allergic reaction, such as anaphylaxis, to any vaccine or any injectable therapy. The patient/caregiver gave verbal consent to receive the vaccine. RSV Immunization: Respiratory Syncytial Virus (RSV) Vaccine: RSV vaccine administered today. Administered: RSV, BIVALENT, PROTEIN SUBUNIT RSVPREF, DILUENT RECONSTITUTED, 0.5 ML, PF Date Administered: Nov 19, 2024 11:20 Selector Packer: [facility] Lot: [id number] Exp Date: Jun 25, 2025 NDC: [id number] Admin Route/Site: INTRAMUSCULAR/RIGHT DELTOID Dosage: 0.5mL Vaccine Information Statement(s): RSV (RESPIRATORY SYNCYTIAL VIRUS) VACCINE VIS Sep 25, 2024 (EQUATORIAL GUINEAN) Order By: Reji Jeffries Administered By: Gita Royal Comment: STERILE WATER DILUENT LOT#:[id number] EXP DATE:10/2025. VIAL ADAPTER LOT#:[id number] EXP DATE:04/26/2028 Vet tolerated injections well. Vet advised of s/s of adverse reactions. No immediate reactions reported by vet or noted by this job specification writer. Vet was advised to remain in the facility for 15 minutes post injection and to report any reactions to staff immediately. Vet voiced understanding. COVID-19 Immunization: Defer due to a PRECAUTION Reason: VET REC'D RSV AND TDAP VACCINES DURING THIS VISIT. Herpes Zoster (Shingles) Vaccine: Defer due to a PRECAUTION Reason: VET REC'D RSV AND TDAP VACCINES DURING THIS VISIT. /renetta/ GITA ROYAL LPN LPN Signed: 11/19/2024 11:39 11/19/2024 ADDENDUM STATUS: COMPLETED 1116:EKG performed while in clinic today. Vet tolerated procedure well. Paper copy of EKG given to Reji COCHRAN for review. Vet discharged from clinic in stable condition. /renetta/ GITA ROYAL LPN LPN Signed: 11/19/2024 11:41 [facility] RO[facility]L [facility]
--- OUTSIDE RECORDS SUMMARY | 2024-12-18 05:45 | XMS_ITS ---
[facility] Address [address] [place] [id number] Care Team Providers Care Copier And Printer Field Technician Name Role Phone Morris Hines Primary Care Provider Allergies No Known Allergies Results Component Value Reference Range Notes Overnight Oximetry Reviewed date:01/01/2025 08:42:04 AM Interpretation: Performing Lab: Notes/Report: REASON FOR VISIT 1 month Medications Medication SIG (Take, Route, Frequency, Duration) Notes Start Date End Date Status Furosemide 20 MG TAKE 2 TABLETS TWICE DAILY for 90 Active Spironolactone 50 MG TAKE 1 TABLET EVERY DAY for 90 Active Xarelto 2.5 MG TAKE 1 TABLET TWICE DAILY for 90 Active Trelegy Ellipta 100-62.5-25 MCG/ACT 1 puff Inhalation Once a day 11/17/2024 Active Losartan Potassium 50 MG 1 tab(s) orally once a day for 90 days Active Pantoprazole Sodium 40 mg 1 tablet Orall y Once a day for 30 days Active Nitroglycerin 0.4 MG/SPRAY 1 spray(s) ahn blingually every 5 minutes as needed Active metFORMIN HCl ER 500 MG 2 Tablets Orally Once a day Active Rosuvastatin Calcium 20 MG 1 tab(s) oral ly once a day Active Gabapentin 600 MG 1 tablet Orally Two times a day for 30 day(s) 09/14/2024 Active Ferrous Gluconate 324 (38 Fe) MG 1 tab(s) orally once a day 02/13/2019 Active Aspirin 81 MG 1 tablet Orally Once a day for 30 day(s) Active Niacin ER 500 MG 1 cap(s) orally once a day (at bedtime) 11/06/2016 Active Viagra 100 MG 1 tab(s) orally once a day as needed 10/13/2013 Active Multivitamin - 1 tab(s) orally once a day Active Problems Problem Type SNOMED Code ICD Code Onset Dates Problem Status W/U Status Risk Notes Problem [id number] BMI 32.0-32.9,ad ult (Z68.32) Active confirmed Vital Signs Weight 187 lbs 12/18/2024 Blood pressure systolic 110 mm Hg 12/19/19 Blood pressure diastolic 64 mm Hg 025 Heart Rate 78 /min 12/18/2024 Height 64 in 12/18/2024 BMI 32.09 kg/m2 12/18/2024 Encounters Encounter Location Date Provider Diagnosis [facility] [address] [facility] [address] [facility] [address] [place], [place] [id number] 12/18/2024 Morris Hines Chronic obstructive pulmonary disease, unspecified COPD type J44.9 ; Acute hypoxemic respiratory failure J96.01 ; Non morbid obesity E66.9 and BMI 32.0-32.9,adult Z68.32 Assessments Encounter Date Diagnosis (ICD Code) Assessment Notes Treatment Notes Treatment Clinical Notes Section Notes 12/18/2024 Chronic obstructive pulmonary disease, unspecified COPD type (ICD-10 - J44.9) 12/18/2024 Acute hypoxemic respiratory failure (ICD-10 - J96.01) 12/18/2024 Non morbid obesity (ICD-10 - E66.9) 12/18/2024 BMI 32.0-32.9,adult (ICD-10 - Z68.32) Plan Of Treatment Next Appt Details Follow Up: 6 Months, Reason: Provider Name:Morris Go ry, 06/18/2025 09:30:00 AM, [address] [facility] [address] [facility], [address], [place], [id number], Progress Notes * MEHUL MADOB: 4 (79 yo M)Acc No.[id number]:12/18/2024 Progress Notes Patient: MEHUL WEATHERS Provider: Kaylyn Hines M.D. :1945 A ge:78 Y S ex:Male Date:12/18/2024 Address:[address] [place], [place] [id number] Subjective: * Chief Complaints: * 1 . 1 month. * HPI: H PI: 78 year old male presents with c/o Here for follow up on: P t here for 1 mo f/u on bilateral pneumonia. Pt states he is doing well and oxygen on room air is improving. * ROS: D ERMATOLOGY: no R thierno. [...] 3 vessels, done by Dr. Marie at [facility] 1999, Heart Cath x2 - Dr. Long 07/2016, [...] tab(s) orally once a day , Taking Pantoprazole Sodium 40 mg Tablet [...] Tablet TAKE 1 TABLET TWICE DAILY , Taking Trelegy Ellipta 100-62.5-25 MCG/ACT Aerosol Powder Breath Activated 1 puff Inhalation Once a day , Taking Losartan Potassium 50 MG Tablet 1 tab(s) orally once a day , Medication List reviewed and reconciled with the patient * Allergies: N .K.D.A. Objective: * Vitals: W t: 187, Temp: 97.9, BP: 110/64, HR: 78, O2 Sat: 95% on RA, Nurse: real, Ht: 64, BMI:32.09. * Examination: G eneral Examination: General Appearance: N AD, using a cane to assist with ambulation. Heart: R SR. Lungs: c lear to auscultation. Assessment: * Assessment: 1. C hronic obstructive pulmonary disease, unspecified COPD type - J44.9 (Primary) ?2. A cute hypoxemic respiratory failure - J96.01 3 . N on morbid obesity - E66.9 4 . B NV 32.0-32.9,adult - Z68.32 Plan: * Treatment: * Procedure Codes: G 2211 Complex e/m visit add on, 3074F SYST BP LT 130 MM HG, 3078F DIAST BP < 80 MM HG * Follow Up: 6 Months * Billing Information: * Visit Code: 99716 Office Visit, Est Pt., Level 3. * Procedure Codes: G2211 Complex e/m visit add on. 3074F SYST BP LT 130 MM HG. 3078F DIAST BP < 80 MM HG. * Electronic signature of Carmencita Hines MD on 02/15/2025 at 10:01 AM EDT Sign off status: Pending * Provider: Kaylyn Hines M.D. Date: 0 12/18/2024 Generated for Celeste amezcua/Silvana/Arnolditting on: 0 02/15/2025 10:01 AM EDT History and Physical Notes * HPI (History of Present Illness) Category Sub-Category Detail Notes Category Not es HPI Here for follow up on: Pt here f or 1 mo f/u on bilateral pneumonia. Pt states he is doing well and oxygen on room air is improving Examination Category Sub-Category Detail Notes Category Not es General Examination Heart: RSR Lungs: clear to auscultatio n General Appearance: NAD, using a cane to assist with ambulation
--- OUTSIDE RECORDS SUMMARY | 2025-01-29 11:00 | XMS_ITS ---
Author Organization [facility] Address [address] [place] [id number] Care Team Providers Care Lpn Medical Assistant Name Role Phone Madelyn Hinesian Primary Care Provider Allergies No Known Allergies [...] MG 2 Tablets Orally Once a day for 90 days Active Pantoprazole Sodium 40 mg 1 tablet Orall y Once a day for 90 days Active Rosuvastatin Calcium 20 MG 1 tab(s) oral ly once a day for 90 days Active Portable Oxygen portable with conserving device as needed as needed COPD 12/30/2024 Active Trelegy Ellipta 100-62.5-25 MCG/ACT 1 puff Inhalation Once a day 11/17/2024 Active Gabapentin 600 MG 1 tablet Orally Two times a day for 30 day(s) 09/14/2024 Active Nitroglycerin 0.4 MG/SPRAY 1 spray(s) ahn blingually every 5 minutes as needed Active Xarelto 2.5 MG TAKE 1 TABLET TWICE DAILY for 90 Active Spironolactone 50 MG TAKE 1 TABLET EVERY DAY for 90 Active Furosemide 20 MG TAKE 2 TABLETS TWICE DAILY for 90 Active Ferrous Gluconate 324 (38 Fe) [...] Once a day for 30 day(s) Active Losartan Potassium 50 MG 1 tab(s) orally once a day for 90 days Active Promethazine-DM 6.25-15 MG/5ML 5 mL as needed Orally every 6 hrs 01/29/2025 Active Zithromax Z-Rio 250 MG as directed Orall y daily for 5 days 01/29/2025 Active predniSONE 20 MG 1 tablet with food o r milk Orally twice a day for 5 days 01/29/2025 Active Problems Problem Type [...] 01/29/2025 Encounters Encounter Location Date Provider Diagnosis [facility] [address] [facility] [address] [place] [phone] 01/29/2025 Morris Hines COPD exacerbation J4 4.1 [...] Z-Rio 250 MG as directed Orall y daily for 5 days 01/29/2025 predniSONE 20 MG 1 tablet with food o r milk Orally twice a day for 5 days 01/29/2025 Treatment Notes Assessment Notes COPD exacerbation Patient declines hos pital admission. He will increase supplemental oxygen to 3 L/min for a few days. He will call with a progress report Next Appt Details Follow Up: via phone to repo rt progress, Reason: Provider Name:Morris Diego Donavan ry, 06/18/2025 09:30:00 AM, [address], [address], [place], [place], [id number], Progress Notes * MEHUL MADOB: 4 (79 yo M)Acc No.[id number]:01/29/2025 Progress Notes Patient: MEHUL WEATHERS Provider: Kaylyn Hines M.D. :1945 A ge:79 Y S ex:Male Date:01/29/2025 Address:[address] [place] [address], [id number] Subjective: * Chief Complaints: * 1 . [...] 3 vessels, done by Dr. Marie at [facility] 1999, Heart Cath x2 - Dr. Long 07/2016, EKG 10/17/2016, Dr. Kwon - Colonoscopy 07/2016, 2016, Excision of anal polyp - Dr. Kwon 09/2016, Cardiac Stent x2 02/11/2018, EGD 01/2019. * Hospitalization/Major Diagno stic Procedure: A VEGA, Gastrobleeding- 01/24/2019. * Family History: F ather: [...] assist with ambulation. Heart: R SR. Lungs: g ood air entry bilaterally, occasional b ilateral wheezes. Extremities: t race leg edema. Assessment: * Assessment: [...] G 2211 Complex e/[place], [address] CAPILLARY BLOOD DRAW, 21154 CBC WITH AUTO DIFF, 1036F TOBACCO NON-USER, G8783 BP SCR PRFRM RCMDD DEFIND SCR INTVL, G8752 MOST RECENT SYSTOLIC BP < 140MM HG, G8754 MOST RECENT DIASTOLIC BP < 90MM HG * Follow Up: v ia phone to report progress * Billing Information: * Visit Code: 03576 Office Visit, Est Pt., Level 4. * Procedure Codes: G2211 Complex e/[place]. [address] CAPILLARY BLOOD DRAW. 26839 CBC WITH AUTO DIFF. 1036F TOBACCO NON-USER. G8783 BP SCR PRFRM RCMDD DEFIND SCR INTVL. G8752 MOST RECENT SYSTOLIC BP < 140MM HG. G8754 MOST RECENT DIASTOLIC BP < 90MM HG. * Electronic signature of Carmencita Hines MD on 02/15/2025 at 10:01 AM EDT Sign off status: Pending * Provider: Kaylyn Hines M.D. Date: 0 01/29/2025 Generated for Celeste amezcua/Silvana/eTransmitting on: 0 02/15/2025 10:01 AM EDT History [...]
--- OUTSIDE RECORDS SUMMARY | 2025-02-15 04:50 | XMS_ITS | Continuity of Care Document ---
Author Name [facility] Organization [facility] Care Team Providers Care Behavioral Pediatrician Name Role Phone [facility] Unavailable Unavailable Problems Combined list of problems from [facility] and [facility] facilities. It does not include entries that were removed or entered in error. Problem Status Onset Date Problem Type Date of Resolution Comments Source CAD - Coronary artery disease Active Condition [facility] Chronic obstructive pulmonary disease Active Condition [facility] DM - Diabetes mellitus Active Condition [facility] Exposure to potentially hazardous substance Active Condition [facility] Gastroesophageal reflux disease Active Condition [facility] H/O: pulmonary embolus Active Condition [facility] Diagnosis: ICD-10-CM I25.10 Athscl heart disease of [place] coronary artery w/o ang pctrs Active Diagnosis [facility] Diagnosis: ICD-10-CM Z65.9 Problem related to unspecified psychosocial circumstances Active Diagnosis [facility] Diagnosis: ICD-10-CM J44.9 Chronic obstructive pulmonary disease, unspecified Active Diagnosis [facility] Medications Combined list of outpatient medications from [facility] facilities.Medications provided include 1) outpatient medications from the last 15 months, and 2) patient-reported medications. Medication Details Route Status Patient Instructions Prescription Expires Prescription Number Last Dispense Date Ordering Provider Order Date Order Qty Source ACETAMINOPH EN 325MG TAB TAKE TWO TABLETS BY MOUTH TWICE A DAY ORAL ACTIVE YOUNG,TAR A JEREMY 2024 [place] [facility] APOAEQUORIN 10MG CAP/TAB TAKE 1 CAP(S)/T AB BY MOUTH DAILY ORAL ACTIVE YOUNG,TAR A JEREMY 2024 [place] [facility] ASCORBIC ACID 500MG TAB TAKE ONE TABLET BY MOUTH DAILY ORAL ACTIVE YOUNG,TAR A TIMBLIN 2024 [place] [facility] ASPIRIN 81MG TAB,EC TAKE ONE TABLET BY MOUTH DAILY ORAL ACTIVE YOUNG,TAR A JEREMY 2024 [facility] [facility] CHOLECALCIF HEATHER 25MCG (1,000UNIT) TAB TAKE ONE TABLET BY MOUTH DAILY ORAL ACTIVE YOUNG,TAR A JEREMY 2024 [place] [facility] FERROUS GLUCONATE 324-325MG TAB,UD TAKE ONE TABLET BY MOUTH EVERY OTHER DAY ORAL ACTIVE YOUNG,TAR A JEREMY 2024 [facility] FLUTICASONE 100/UMECLID INIUM 62.5/VILANT HEATHER 25MCG/ACTUA T INH,30 INHALE 1 INHALATI ON BY MOUTH DAILY RESPIR ATORY (INHAL ATION) ACTIVE YOUNG,TAR A JEREMY 2024 [facility] FUROSEMIDE 40MG TAB TAKE ONE TABLET BY MOUTH TWICE A DAY ORAL ACTIVE YOUNG,TAR A JEREMY 2024 [facility] GABAPENTIN 600MG TAB TAKE ONE TABLET BY MOUTH TWICE A DAY ORAL ACTIVE YOUNG,TAR A JEREMY2024 [facility] GUAIFENESIN 400MG TAB TAKE TWO TABLETS BY MOUTH THREE TIMES A DAY NEEDED FOR CHEST MUCUS/CO NGESTION ORAL 12/19/2024 [id number] YOUNG,TAR A JEREMY 2024 84 [facility] KRILL OIL CAP/TAB TAKE 2 CAPS/TAB S BY MOUTH DAILY ORAL ACTIVE YOUNG,TAR A JEREMY 2024 [facility] LOSARTAN 50MG TAB TAKE ONE TABLET BY MOUTH DAILY ORAL ACTIVE YOUNG,TAR A JEREMY 2024 [facility] METFORMIN HCL 500MG 24HR TAB,SA TAKE TWO TABLETS BY MOUTH DAILY ORAL ACTIVE YOUNG,TAR A JEREMY 2024 [facility] MULTIVITAMI NS CAP/TAB TAKE 1 CAP/TAB BY MOUTH DAILY ORAL ACTIVE YOUNG,TAR A JEREMY 2024 [facility] NIACIN (SLO-NIACIN ) 500MG TAB,SA TAKE ONE TABLET BY MOUTH AT BEDTIME ORAL ACTIVE YOUNG,TAR A TIMBLIN 2024 [facility] NITROGLYCER IN 0.4MG/SPRAY AEROSOL 1 SPRAY (0.4MG) UNDER THE TONGUE DIRECTED NEEDED SUBLIN GUAL ACTIVE YOUNG,TAR A TIMBLIN 2024 [facility] PANTOPRAZOL E NA 40MG TAB,EC TAKE ONE TABLET BY MOUTH ONCE A DAY 30 MINUTES BEFORE A MEAL ORAL ACTIVE ,TAR A TIMBLIN 2024 [facility] RIVAROXABAN 2.5MG TAB TAKE ONE TABLET BY MOUTH TWICE A DAY TO THIN BLOOD ORAL ACTIVE 11/21/2025 [id number] YOUNG,TAR A TIMBLIN 2024 180 [facility] ROSUVASTATI N CA 20MG TAB TAKE ONE TABLET BY MOUTH AT BEDTIME ORAL ACTIVE YOUNG,TAR A TIMBLIN 2024 [facility] SPIRONOLACT ONE 25MG TAB TAKE TWO TABLETS BY MOUTH DAILY ORAL ACTIVE COBY,TAR A TIMBLIN 2024 [facility] ZINC 50MG (FROM SULFATE) CAP TAKE 1 CAPSULE BY MOUTH DAILY ORAL ACTIVE COBY,TAR A TIMBLIN 2024 [facility] Immunizations Combined list of available immunizations from the Department of Defense and [facility] facilities. Immunization Series Date Given Administered By Site Reaction Lot Number CVX Code Drug Seasonal Delivery Driver Status Comments Source RSV, BIVALENT, PROTEIN SUBUNIT RSVPREF, DILUENT RECONSTITUTED , 0.5 ML, PF 2024 Martha ALBERTS RIGHT DELTO ID [id number] 305 complet ed [facility] [place] [facility] [place], STERILE WATER DILUENT LOT#:[id number] EXP DATE:10/25 026. VIAL ADAPTER LOT#:[id number] EXP DATE:08/2027 [facility] TDAP 2024 Martha ALBERTS LEFT DELTO ID [id number] 115 complet ed [facility] [place] [facility] [place], [facility] PNEUMOCOCCAL CONJUGATE PCV20, POLYSACCHARID E [id number] CONJUGATE, ADJUVANT, PF 2 2022 216 complet ed HISTORICA L INFORMATI ON - FROM OTHER REGISTRY, [place] [facility] COVID-19 (MODERNA), MRNA, LNP-S, BIVALENT, PF, 50 MCG/0.5 ML OR 25MCG/0.25 ML DOSE 4 2021 229 complet ed HISTORICA L INFORMATI ON - FROM OTHER REGISTRY, [place] [facility] INFLUENZA, HIGH-DOSE, QUADRIVALENT, PF 3 2021 197 complet ed HISTORICA L INFORMATI ON - FROM OTHER REGISTRY, [place] [facility] PNEUMOCOCCAL POLYSACCHARID E [id number] 2020 33 complet ed HISTORICA L INFORMATI ON - FROM OTHER REGISTRY, [place] [facility] INFLUENZA, HIGH-DOSE, QUADRIVALENT, PF 2 2020 197 complet ed HISTORICA L INFORMATI ON - FROM OTHER REGISTRY, [place] [facility] COVID-19 (MODERNA), MRNA, LNP-S, PF, 100 MCG/0.5ML DOSE OR 50 MCG/0.25ML DOSE 3 2020 207 complet ed HISTORICA L INFORMATI ON - FROM OTHER REGISTRY, [place] [facility] COVID-19 (MODERNA), MRNA, LNP-S, PF, 100 MCG/0.5ML DOSE OR 50 MCG/0.25ML DOSE 2 2020 207 complet ed HISTORICA L INFORMATI ON - FROM OTHER REGISTRY, [place] [facility] COVID-19 (MODERNA), MRNA, LNP-S, PF, 100 MCG/0.5ML DOSE OR 50 MCG/0.25ML DOSE 1 2020 207 complet ed HISTORICA L INFORMATI ON - FROM OTHER REGISTRY, [place] [facility] INFLUENZA, HIGH-DOSE, TRIVALENT, PF 1 2019 135 complet ed HISTORICA L INFORMATI ON - FROM OTHER REGISTRY, [place] [facility] PNEUMOCOCCAL POLYSACCHARID E [id number] 1 1996 33 complet ed HISTORICA L INFORMATI ON - FROM OTHER REGISTRY, [place] [facility] Results Combined list of recent chemistry, hematology and other laboratory results from [facility] and [facility], ranging from 15 months to all on record, depending upon the facility. Order Name Results Value Reference Range Date Interpretation Specimen Comments Source PANEL 1 CREATININE [MASS/VOLUM E] IN SERUM OR PLASMA 1.30 mg/dL 0.72 - 1.25 11/19 H Specimen Type: PLASMA Comment: Estimated Glomerular Filtration Rate (eGFR) calculated using the 2020 Chronic Kidney Disease-Epi demiology (CKD-EPI) Collaborati on creatinine equation; units of measure are mL/min/1.73 m2. Results are only valid for adults (>=18 years) whose serum creatinine is in a steady state. eGFR calculation s are not valid for patients with acute kidney injury and for patients on dialysis. Creatinine- based estimates of kidney function may also be inaccurate in patients with reduced creatinine generation due to decreased muscle mass (e.g., malnutritio n, severe hypoalbumin emia, sarcopenia, chronic neuromuscul ar disease, amputations , severe heart failure or liver disease) and in patients with increased creatinine generation due to increased muscle mass (e.g., muscle builders, anabolic steroids) or increased dietary intake. As drug clearance is proportiona l to total GFR and not GFR indexed to body surface area (BSA), in individuals with a BSA substantial ly different than 1.73 m2, drug dosing should be based on the reported eGFR value de-indexed from BSA by multiplying by the individual' s BSA and dividing by 1.73. CKD is diagnosed based on abnormaliti es of kidney structure or function, present for >3 months, with implication s for health and disease. CKD is classified and staged based on cause, eGFR and albuminuria (quantified as urine albumin to creatinine ratio). An eGFR >60 mL/min/1.73 m2 in the absence of increased urine albumin excretion or structural abnormaliti es does not represent CKD. eGFR CKD Interpretat ion (mL/min/1.7 3 m2) stage >=90 G1 Normal 60-89 G2 Mild decrease 45-59 G3A Mild to moderate decrease 30-44 G3B Moderate to severe decrease 15-29 G4 Severe decrease <15 G5 Kidney failure Vitamin B12 test may not yield results when protein level of sample is too elevated. Ordering Provider: REJI TENORIO Report Released Date/Time: Nov 19, 2024 10:36 AM Reporting Lab: [facility] [address] [address] Performing Lab: [facility] [address] [address] [facility] PANEL 1 UREA NITROGEN [MASS/VOLUM E] IN SERUM OR PLASMA 19 mg/dL 11/19 Specimen Type: PLASMA Comment: Estimated Glomerular Filtration Rate (eGFR) calculated using the 2020 Chronic Kidney Disease-Epi demiology (CKD-EPI) Collaborati on creatinine equation; units of measure are mL/min/1.73 m2. Results are only valid for adults (>=18 years) whose serum creatinine is in a steady state. eGFR calculation s are not valid for patients with acute kidney injury and for patients on dialysis. Creatinine- based estimates of kidney function may also be inaccurate in patients with reduced creatinine generation due to decreased muscle mass (e.g., malnutritio n, severe hypoalbumin emia, sarcopenia, chronic neuromuscul ar disease, amputations , severe heart failure or liver disease) and in patients with increased creatinine generation due to increased muscle mass (e.g., muscle builders, anabolic steroids) or increased dietary intake. As drug clearance is proportiona l to total GFR and not GFR indexed to body surface area (BSA), in individuals with a BSA substantial ly different than 1.73 m2, drug dosing should be based on the reported eGFR value de-indexed from BSA by multiplying by the individual' s BSA and dividing by 1.73. CKD is diagnosed based on abnormaliti es of kidney structure or function, present for >3 months, with implication s for health and disease. CKD is classified and staged based on cause, eGFR and albuminuria (quantified as urine albumin to creatinine ratio). An eGFR >60 mL/min/1.73 m2 in the absence of increased urine albumin excretion or structural abnormaliti es does not represent CKD. eGFR CKD Interpretat ion (mL/min/1.7 3 m2) stage >=90 G1 Normal 60-89 G2 Mild decrease 45-59 G3A Mild to moderate decrease 30-44 G3B Moderate to severe decrease 15-29 G4 Severe decrease <15 G5 Kidney failure Vitamin B12 test may not yield results when protein level of sample is too elevated. Ordering Provider: REJI TENORIO Report Released Date/Time: Nov 19, 2024 10:36 AM Reporting Lab: [place] [id number] [facility] [phone] Performing Lab: [place] [id number] [facility] [address] [facility] PANEL 1 GLUCOSE [MASS/VOLUM E] IN SERUM OR PLASMA 151 mg/dL 74 - 100 11/19 H Specimen Type: PLASMA Comment: Estimated Glomerular Filtration Rate (eGFR) calculated using the 2020 Chronic Kidney Disease-Epi demiology (CKD-EPI) Collaborati on creatinine equation; units of measure are mL/min/1.73 m2. Results are only valid for adults (>=18 years) whose serum creatinine is in a steady state. eGFR calculation s are not valid for patients with acute kidney injury and for patients on dialysis. Creatinine- based estimates of kidney function may also be inaccurate in patients with reduced creatinine generation due to decreased muscle mass (e.g., malnutritio n, severe hypoalbumin emia, sarcopenia, chronic neuromuscul ar disease, amputations , severe heart failure or liver disease) and in patients with increased creatinine generation due to increased muscle mass (e.g., muscle builders, anabolic steroids) or increased dietary intake. As drug clearance is proportiona l to total GFR and not GFR indexed to body surface area (BSA), in individuals with a BSA substantial ly different than 1.73 m2, drug dosing should be based on the reported eGFR value de-indexed from BSA by multiplying by the individual' s BSA and dividing by 1.73. CKD is diagnosed based on abnormaliti es of kidney structure or function, present for >3 months, with implication s for health and disease. CKD is classified and staged based on cause, eGFR and albuminuria (quantified as urine albumin to creatinine ratio). An eGFR >60 mL/min/1.73 m2 in the absence of increased urine albumin excretion or structural abnormaliti es does not represent CKD. eGFR CKD Interpretat ion (mL/min/1.7 3 m2) stage >=90 G1 Normal 60-89 G2 Mild decrease 45-59 G3A Mild to moderate decrease 30-44 G3B Moderate to severe decrease 15-29 G4 Severe decrease <15 G5 Kidney failure Vitamin B12 test may not yield results when protein level of sample is too elevated. Ordering Provider: REJI TENORIO Report Released Date/Time: Nov 19, 2024 10:36 AM Reporting Lab: [facility] [address] [address] Performing Lab: [facility] [address] [address] [facility] PANEL 1 SODIUM [MOLES/VOLU ME] IN SERUM OR PLASMA 138 mmol/L 136 - 145 11/19 Specimen Type: PLASMA Comment: Estimated Glomerular Filtration Rate (eGFR) calculated using the 2020 Chronic Kidney Disease-Epi demiology (CKD-EPI) Collaborati on creatinine equation; units of measure are mL/min/1.73 m2. Results are only valid for adults (>=18 years) whose serum creatinine is in a steady state. eGFR calculation s are not valid for patients with acute kidney injury and for patients on dialysis. Creatinine- based estimates of kidney function may also be inaccurate in patients with reduced creatinine generation due to decreased muscle mass (e.g., malnutritio n, severe hypoalbumin emia, sarcopenia, chronic neuromuscul ar disease, amputations , severe heart failure or liver disease) and in patients with increased creatinine generation due to increased muscle mass (e.g., muscle builders, anabolic steroids) or increased dietary intake. As drug clearance is proportiona l to total GFR and not GFR indexed to body surface area (BSA), in individuals with a BSA substantial ly different than 1.73 m2, drug dosing should be based on the reported eGFR value de-indexed from BSA by multiplying by the individual' s BSA and dividing by 1.73. CKD is diagnosed based on abnormaliti es of kidney structure or function, present for >3 months, with implication s for health and disease. CKD is classified and staged based on cause, eGFR and albuminuria (quantified as urine albumin to creatinine ratio). An eGFR >60 mL/min/1.73 m2 in the absence of increased urine albumin excretion or structural abnormaliti es does not represent CKD. eGFR CKD Interpretat ion (mL/min/1.7 3 m2) stage >=90 G1 Normal 60-89 G2 Mild decrease 45-59 G3A Mild to moderate decrease 30-44 G3B Moderate to severe decrease 15-29 G4 Severe decrease <15 G5 Kidney failure Vitamin B12 test may not yield results when protein level of sample is too elevated. Ordering Provider: REJI TENORIO Report Released Date/Time: Nov 19, 2024 10:36 AM Reporting Lab: [facility] [address] [address] Performing Lab: [facility] [address] [address] [facility] PANEL 1 POTASSIUM [MOLES/VOLU ME] IN SERUM OR PLASMA 4.6 mmol/L 3.5 - 5.1 11/19 Specimen Type: PLASMA Comment: Estimated Glomerular Filtration Rate (eGFR) calculated using the 2020 Chronic Kidney Disease-Epi demiology (CKD-EPI) Collaborati on creatinine equation; units of measure are mL/min/1.73 m2. Results are only valid for adults (>=18 years) whose serum creatinine is in a steady state. eGFR calculation s are not valid for patients with acute kidney injury and for patients on dialysis. Creatinine- based estimates of kidney function may also be inaccurate in patients with reduced creatinine generation due to decreased muscle mass (e.g., malnutritio n, severe hypoalbumin emia, sarcopenia, chronic neuromuscul ar disease, amputations , severe heart failure or liver disease) and in patients with increased creatinine generation due to increased muscle mass (e.g., muscle builders, anabolic steroids) or increased dietary intake. As drug clearance is proportiona l to total GFR and not GFR indexed to body surface area (BSA), in individuals with a BSA substantial ly different than 1.73 m2, drug dosing should be based on the reported eGFR value de-indexed from BSA by multiplying by the individual' s BSA and dividing by 1.73. CKD is diagnosed based on abnormaliti es of kidney structure or function, present for >3 months, with implication s for health and disease. CKD is classified and staged based on cause, eGFR and albuminuria (quantified as urine albumin to creatinine ratio). An eGFR >60 mL/min/1.73 m2 in the absence of increased urine albumin excretion or structural abnormaliti es does not represent CKD. eGFR CKD Interpretat ion (mL/min/1.7 3 m2) stage >=90 G1 Normal 60-89 G2 Mild decrease 45-59 G3A Mild to moderate decrease 30-44 G3B Moderate to severe decrease 15-29 G4 Severe decrease <15 G5 Kidney failure Vitamin B12 test may not yield results when protein level of sample is too elevated. Ordering Provider: REJI TENORIO Report Released Date/Time: Nov 19, 2024 10:36 AM Reporting Lab: [facility] [address] [phone] Performing Lab: [facility] [address] [address] [facility] PANEL 1 CHLORIDE [MOLES/VOLU ME] IN SERUM OR PLASMA 95 mmol/L 98 - 107 11/19 L Specimen Type: PLASMA Comment: Estimated Glomerular Filtration Rate (eGFR) calculated using the 2020 Chronic Kidney Disease-Epi demiology (CKD-EPI) Collaborati on creatinine equation; units of measure are mL/min/1.73 m2. Results are only valid for adults (>=18 years) whose serum creatinine is in a steady state. eGFR calculation s are not valid for patients with acute kidney injury and for patients on dialysis. Creatinine- based estimates of kidney function may also be inaccurate in patients with reduced creatinine generation due to decreased muscle mass (e.g., malnutritio n, severe hypoalbumin emia, sarcopenia, chronic neuromuscul ar disease, amputations , severe heart failure or liver disease) and in patients with increased creatinine generation due to increased muscle mass (e.g., muscle builders, anabolic steroids) or increased dietary intake. As drug clearance is proportiona l to total GFR and not GFR indexed to body surface area (BSA), in individuals with a BSA substantial ly different than 1.73 m2, drug dosing should be based on the reported eGFR value de-indexed from BSA by multiplying by the individual' s BSA and dividing by 1.73. CKD is diagnosed based on abnormaliti es of kidney structure or function, present for >3 months, with implication s for health and disease. CKD is classified and staged based on cause, eGFR and albuminuria (quantified as urine albumin to creatinine ratio). An eGFR >60 mL/min/1.73 m2 in the absence of increased urine albumin excretion or structural abnormaliti es does not represent CKD. eGFR CKD Interpretat ion (mL/min/1.7 3 m2) stage >=90 G1 Normal 60-89 G2 Mild decrease 45-59 G3A Mild to moderate decrease 30-44 G3B Moderate to severe decrease 15-29 G4 Severe decrease <15 G5 Kidney failure Vitamin B12 test may not yield results when protein level of sample is too elevated. Ordering Provider: REJI TENORIO Report Released Date/Time: Nov 19, 2024 10:36 AM Reporting Lab: [facility] [address] [phone] Performing Lab: [facility] ERWIN [address] [phone] [facility] PANEL 1 CARBON DIOXIDE, TOTAL [MOLES/VOLU ME] IN SERUM OR PLASMA 35 mmol/L - 11/19 H Specimen Type: PLASMA Comment: Estimated Glomerular Filtration Rate (eGFR) calculated using the 2020 Chronic Kidney Disease-Epi demiology (CKD-EPI) Collaborati on creatinine equation; units of measure are mL/min/1.73 m2. Results are only valid for adults (>=18 years) whose serum creatinine is in a steady state. eGFR calculation s are not valid for patients with acute kidney injury and for patients on dialysis. Creatinine- based estimates of kidney function may also be inaccurate in patients with reduced creatinine generation due to decreased muscle mass (e.g., malnutritio n, severe hypoalbumin emia, sarcopenia, chronic neuromuscul ar disease, amputations , severe heart failure or liver disease) and in patients with increased creatinine generation due to increased muscle mass (e.g., muscle builders, anabolic steroids) or increased dietary intake. As drug clearance is proportiona l to total GFR and not GFR indexed to body surface area (BSA), in individuals with a BSA substantial ly different than 1.73 m2, drug dosing should be based on the reported eGFR value de-indexed from BSA by multiplying by the individual' s BSA and dividing by 1.73. CKD is diagnosed based on abnormaliti es of kidney structure or function, present for >3 months, with implication s for health and disease. CKD is classified and staged based on cause, eGFR and albuminuria (quantified as urine albumin to creatinine ratio). An eGFR >60 mL/min/1.73 m2 in the absence of increased urine albumin excretion or structural abnormaliti es does not represent CKD. eGFR CKD Interpretat ion (mL/min/1.7 3 m2) stage >=90 G1 Normal 60-89 G2 Mild decrease 45-59 G3A Mild to moderate decrease 30-44 G3B Moderate to severe decrease 15-29 G4 Severe decrease <15 G5 Kidney failure Vitamin B12 test may not yield results when protein level of sample is too elevated. Ordering Provider: REJI TENORIO Report Released Date/Time: Nov 19, 2024 10:36 AM Reporting Lab: [facility] [address] [address] Performing Lab: [facility] [address] [address] [facility] PANEL 1 CALCIUM [MASS/VOLUM E] IN SERUM OR PLASMA 10.3 mg/dL 8.4 - 10.2 11/19 H Specimen Type: PLASMA Comment: Estimated Glomerular Filtration Rate (eGFR) calculated using the 2020 Chronic Kidney Disease-Epi demiology (CKD-EPI) Collaborati on creatinine equation; units of measure are mL/min/1.73 m2. Results are only valid for adults (>=18 years) whose serum creatinine is in a steady state. eGFR calculation s are not valid for patients with acute kidney injury and for patients on dialysis. Creatinine- based estimates of kidney function may also be inaccurate in patients with reduced creatinine generation due to decreased muscle mass (e.g., malnutritio n, severe hypoalbumin emia, sarcopenia, chronic neuromuscul ar disease, amputations , severe heart failure or liver disease) and in patients with increased creatinine generation due to increased muscle mass (e.g., muscle builders, anabolic steroids) or increased dietary intake. As drug clearance is proportiona l to total GFR and not GFR indexed to body surface area (BSA), in individuals with a BSA substantial ly different than 1.73 m2, drug dosing should be based on the reported eGFR value de-indexed from BSA by multiplying by the individual' s BSA and dividing by 1.73. CKD is diagnosed based on abnormaliti es of kidney structure or function, present for >3 months, with implication s for health and disease. CKD is classified and staged based on cause, eGFR and albuminuria (quantified as urine albumin to creatinine ratio). An eGFR >60 mL/min/1.73 m2 in the absence of increased urine albumin excretion or structural abnormaliti es does not represent CKD. eGFR CKD Interpretat ion (mL/min/1.7 3 m2) stage >=90 G1 Normal 60-89 G2 Mild decrease 45-59 G3A Mild to moderate decrease 30-44 G3B Moderate to severe decrease 15-29 G4 Severe decrease <15 G5 Kidney failure Vitamin B12 test may not yield results when protein level of sample is too elevated. Ordering Provider: REJI TENORIO Report Released Date/Time: Nov 19, 2024 10:36 AM Reporting Lab: [facility] [address] [address] Performing Lab: [facility] [address] [address] [facility] PANEL 1 ANION GAP 3 IN SERUM OR PLASMA 8 meq/L 3 - 19 11/19 Specimen Type: PLASMA Comment: Estimated Glomerular Filtration Rate (eGFR) calculated using the 2020 Chronic Kidney Disease-Epi demiology (CKD-EPI) Collaborati on creatinine equation; units of measure are mL/min/1.73 m2. Results are only valid for adults (>=18 years) whose serum creatinine is in a steady state. eGFR calculation s are not valid for patients with acute kidney injury and for patients on dialysis. Creatinine- based estimates of kidney function may also be inaccurate in patients with reduced creatinine generation due to decreased muscle mass (e.g., malnutritio n, severe hypoalbumin emia, sarcopenia, chronic neuromuscul ar disease, amputations , severe heart failure or liver disease) and in patients with increased creatinine generation due to increased muscle mass (e.g., muscle builders, anabolic steroids) or increased dietary intake. As drug clearance is proportiona l to total GFR and not GFR indexed to body surface area (BSA), in individuals with a BSA substantial ly different than 1.73 m2, drug dosing should be based on the reported eGFR value de-indexed from BSA by multiplying by the individual' s BSA and dividing by 1.73. CKD is diagnosed based on abnormaliti es of kidney structure or function, present for >3 months, with implication s for health and disease. CKD is classified and staged based on cause, eGFR and albuminuria (quantified as urine albumin to creatinine ratio). An eGFR >60 mL/min/1.73 m2 in the absence of increased urine albumin excretion or structural abnormaliti es does not represent CKD. eGFR CKD Interpretat ion (mL/min/1.7 3 m2) stage >=90 G1 Normal 60-89 G2 Mild decrease 45-59 G3A Mild to moderate decrease 30-44 G3B Moderate to severe decrease 15-29 G4 Severe decrease <15 G5 Kidney failure Vitamin B12 test may not yield results when protein level of sample is too elevated. Ordering Provider: REJI TENORIO Report Released Date/Time: Nov 19, 2024 10:36 AM Reporting Lab: [facility] [address] [facility] [address] Performing Lab: JESSICA ERWIN [facility] [address] [facility] [address] [facility] PANEL 1 GLOMERULAR FILTRATION RATE/1.73 SQ M.PREDICTED [VOLUME RATE/AREA] IN SERUM, PLASMA OR BLOOD BY CREATININE- BASED FORMULA (CKD-EPI 2020) 56 11/19 Specimen Type: PLASMA Comment: Estimated Glomerular Filtration Rate (eGFR) calculated using the 2020 Chronic Kidney Disease-Epi demiology (CKD-EPI) Collaborati on creatinine equation; units of measure are mL/min/1.73 m2. Results are only valid for adults (>=18 years) whose serum creatinine is in a steady state. eGFR calculation s are not valid for patients with acute kidney injury and for patients on dialysis. Creatinine- based estimates of kidney function may also be inaccurate in patients with reduced creatinine generation due to decreased muscle mass (e.g., malnutritio n, severe hypoalbumin emia, sarcopenia, chronic neuromuscul ar disease, amputations , severe heart failure or liver disease) and in patients with increased creatinine generation due to increased muscle mass (e.g., muscle builders, anabolic steroids) or increased dietary intake. As drug clearance is proportiona l to total GFR and not GFR indexed to body surface area (BSA), in individuals with a BSA substantial ly different than 1.73 m2, drug dosing should be based on the reported eGFR value de-indexed from BSA by multiplying by the individual' s BSA and dividing by 1.73. CKD is diagnosed based on abnormaliti es of kidney structure or function, present for >3 months, with implication s for health and disease. CKD is classified and staged based on cause, eGFR and albuminuria (quantified as urine albumin to creatinine ratio). An eGFR >60 mL/min/1.73 m2 in the absence of increased urine albumin excretion or structural abnormaliti es does not represent CKD. eGFR CKD Interpretat ion (mL/min/1.7 3 m2) stage >=90 G1 Normal 60-89 G2 Mild decrease 45-59 G3A Mild to moderate decrease 30-44 G3B Moderate to severe decrease 15-29 G4 Severe decrease <15 G5 Kidney failure Vitamin B12 test may not yield results when protein level of sample is too elevated. Ordering Provider: REJI TENORIO Report Released Date/Time: Nov 19, 2024 10:36 AM Reporting Lab: [facility] [address] [facility] [phone] Performing Lab: JESS[facility] ERWIN [facility] [address] [facility] [address] [facility] PANEL 2 PROTEIN [MASS/VOLUM E] IN SERUM OR PLASMA 9.1 g/dL 6.4 - 8.3 11/19 H Specimen Type: PLASMA Comment: Estimated Glomerular Filtration Rate (eGFR) calculated using the 2020 Chronic Kidney Disease-Epi demiology (CKD-EPI) Collaborati on creatinine equation; units of measure are mL/min/1.73 m2. Results are only valid for adults (>=18 years) whose serum creatinine is in a steady state. eGFR calculation s are not valid for patients with acute kidney injury and for patients on dialysis. Creatinine- based estimates of kidney function may also be inaccurate in patients with reduced creatinine generation due to decreased muscle mass (e.g., malnutritio n, severe hypoalbumin emia, sarcopenia, chronic neuromuscul ar disease, amputations , severe heart failure or liver disease) and in patients with increased creatinine generation due to increased muscle mass (e.g., muscle builders, anabolic steroids) or increased dietary intake. As drug clearance is proportiona l to total GFR and not GFR indexed to body surface area (BSA), in individuals with a BSA substantial ly different than 1.73 m2, drug dosing should be based on the reported eGFR value de-indexed from BSA by multiplying by the individual' s BSA and dividing by 1.73. CKD is diagnosed based on abnormaliti es of kidney structure or function, present for >3 months, with implication s for health and disease. CKD is classified and staged based on cause, eGFR and albuminuria (quantified as urine albumin to creatinine ratio). An eGFR >60 mL/min/1.73 m2 in the absence of increased urine albumin excretion or structural abnormaliti es does not represent CKD. eGFR CKD Interpretat ion (mL/min/1.7 3 m2) stage >=90 G1 Normal 60-89 G2 Mild decrease 45-59 G3A Mild to moderate decrease 30-44 G3B Moderate to severe decrease 15-29 G4 Severe decrease <15 G5 Kidney failure Vitamin B12 test may not yield results when protein level of sample is too elevated. Ordering Provider: REJI TENORIO Report Released Date/Time: Nov 19, 2024 10:36 AM Reporting Lab: [facility] [address] [address] Performing Lab: [place] [address] [address] [facility] PANEL 2 ALBUMIN [MASS/VOLUM E] IN SERUM OR PLASMA 4.4 g/dL 3.5 - 5.2 11/19 Specimen Type: PLASMA Comment: Estimated Glomerular Filtration Rate (eGFR) calculated using the 2020 Chronic Kidney Disease-Epi demiology (CKD-EPI) Collaborati on creatinine equation; units of measure are mL/min/1.73 m2. Results are only valid for adults (>=18 years) whose serum creatinine is in a steady state. eGFR calculation s are not valid for patients with acute kidney injury and for patients on dialysis. Creatinine- based estimates of kidney function may also be inaccurate in patients with reduced creatinine generation due to decreased muscle mass (e.g., malnutritio n, severe hypoalbumin emia, sarcopenia, chronic neuromuscul ar disease, amputations , severe heart failure or liver disease) and in patients with increased creatinine generation due to increased muscle mass (e.g., muscle builders, anabolic steroids) or increased dietary intake. As drug clearance is proportiona l to total GFR and not GFR indexed to body surface area (BSA), in individuals with a BSA substantial ly different than 1.73 m2, drug dosing should be based on the reported eGFR value de-indexed from BSA by multiplying by the individual' s BSA and dividing by 1.73. CKD is diagnosed based on abnormaliti es of kidney structure or function, present for >3 months, with implication s for health and disease. CKD is classified and staged based on cause, eGFR and albuminuria (quantified as urine albumin to creatinine ratio). An eGFR >60 mL/min/1.73 m2 in the absence of increased urine albumin excretion or structural abnormaliti es does not represent CKD. eGFR CKD Interpretat ion (mL/min/1.7 3 m2) stage >=90 G1 Normal 60-89 G2 Mild decrease 45-59 G3A Mild to moderate decrease 30-44 G3B Moderate to severe decrease 15-29 G4 Severe decrease <15 G5 Kidney failure Vitamin B12 test may not yield results when protein level of sample is too elevated. Ordering Provider: REJI TENORIO Report Released Date/Time: Nov 19, 2024 10:36 AM Reporting Lab: [facility]ESS[facility] ERWIN [address] [address] Performing Lab: JESSICA ERWIN [address] [address] [facility] PANEL 2 BILIRUBIN.T OTAL [MASS/VOLUM E] IN SERUM OR PLASMA 0.5 mg/dL 0.2 - 1.2 11/19 Specimen Type: PLASMA Comment: Estimated Glomerular Filtration Rate (eGFR) calculated using the 2020 Chronic Kidney Disease-Epi demiology (CKD-EPI) Collaborati on creatinine equation; units of measure are mL/min/1.73 m2. Results are only valid for adults (>=18 years) whose serum creatinine is in a steady state. eGFR calculation s are not valid for patients with acute kidney injury and for patients on dialysis. Creatinine- based estimates of kidney function may also be inaccurate in patients with reduced creatinine generation due to decreased muscle mass (e.g., malnutritio n, severe hypoalbumin emia, sarcopenia, chronic neuromuscul ar disease, amputations , severe heart failure or liver disease) and in patients with increased creatinine generation due to increased muscle mass (e.g., muscle builders, anabolic steroids) or increased dietary intake. As drug clearance is proportiona l to total GFR and not GFR indexed to body surface area (BSA), in individuals with a BSA substantial ly different than 1.73 m2, drug dosing should be based on the reported eGFR value de-indexed from BSA by multiplying by the individual' s BSA and dividing by 1.73. CKD is diagnosed based on abnormaliti es of kidney structure or function, present for >3 months, with implication s for health and disease. CKD is classified and staged based on cause, eGFR and albuminuria (quantified as urine albumin to creatinine ratio). An eGFR >60 mL/min/1.73 m2 in the absence of increased urine albumin excretion or structural abnormaliti es does not represent CKD. eGFR CKD Interpretat ion (mL/min/1.7 3 m2) stage >=90 G1 Normal 60-89 G2 Mild decrease 45-59 G3A Mild to moderate decrease 30-44 G3B Moderate to severe decrease 15-29 G4 Severe decrease <15 G5 Kidney failure Vitamin B12 test may not yield results when protein level of sample is too elevated. Ordering Provider: REJI TENORIO Report Released Date/Time: Nov 19, 2024 10:36 AM Reporting Lab: [facility]ESS[facility] ERWIN [address] [address] Performing Lab: JESSICA ERWIN [address] [address] [facility] PANEL 2 ASPARTATE AMINOTRANSF ERASE [ENZYMATIC ACTIVITY/VO LUME] IN SERUM OR PLASMA 17 U/L 5 - 34 11/19 Specimen Type: PLASMA Comment: Estimated Glomerular Filtration Rate (eGFR) calculated using the 2020 Chronic Kidney Disease-Epi demiology (CKD-EPI) Collaborati on creatinine equation; units of measure are mL/min/1.73 m2. Results are only valid for adults (>=18 years) whose serum creatinine is in a steady state. eGFR calculation s are not valid for patients with acute kidney injury and for patients on dialysis. Creatinine- based estimates of kidney function may also be inaccurate in patients with reduced creatinine generation due to decreased muscle mass (e.g., malnutritio n, severe hypoalbumin emia, sarcopenia, chronic neuromuscul ar disease, amputations , severe heart failure or liver disease) and in patients with increased creatinine generation due to increased muscle mass (e.g., muscle builders, anabolic steroids) or increased dietary intake. As drug clearance is proportiona l to total GFR and not GFR indexed to body surface area (BSA), in individuals with a BSA substantial ly different than 1.73 m2, drug dosing should be based on the reported eGFR value de-indexed from BSA by multiplying by the individual' s BSA and dividing by 1.73. CKD is diagnosed based on abnormaliti es of kidney structure or function, present for >3 months, with implication s for health and disease. CKD is classified and staged based on cause, eGFR and albuminuria (quantified as urine albumin to creatinine ratio). An eGFR >60 mL/min/1.73 m2 in the absence of increased urine albumin excretion or structural abnormaliti es does not represent CKD. eGFR CKD Interpretat ion (mL/min/1.7 3 m2) stage >=90 G1 Normal 60-89 G2 Mild decrease 45-59 G3A Mild to moderate decrease 30-44 G3B Moderate to severe decrease 15-29 G4 Severe decrease <15 G5 Kidney failure Vitamin B12 test may not yield results when protein level of sample is too elevated. Ordering Provider: REJI TENORIO Report Released Date/Time: Nov 19, 2024 10:36 AM Reporting Lab: JESSICA ERWIN [address] [phone] Performing Lab: JESSICA ERWIN [address] [address] [facility] PANEL 2 ALANINE AMINOTRANSF ERASE [ENZYMATIC ACTIVITY/VO LUME] IN SERUM OR PLASMA 19 U/L 0 - 55 11/19 Specimen Type: PLASMA Comment: Estimated Glomerular Filtration Rate (eGFR) calculated using the 2020 Chronic Kidney Disease-Epi demiology (CKD-EPI) Collaborati on creatinine equation; units of measure are mL/min/1.73 m2. Results are only valid for adults (>=18 years) whose serum creatinine is in a steady state. eGFR calculation s are not valid for patients with acute kidney injury and for patients on dialysis. Creatinine- based estimates of kidney function may also be inaccurate in patients with reduced creatinine generation due to decreased muscle mass (e.g., malnutritio n, severe hypoalbumin emia, sarcopenia, chronic neuromuscul ar disease, amputations , severe heart failure or liver disease) and in patients with increased creatinine generation due to increased muscle mass (e.g., muscle builders, anabolic steroids) or increased dietary intake. As drug clearance is proportiona l to total GFR and not GFR indexed to body surface area (BSA), in individuals with a BSA substantial ly different than 1.73 m2, drug dosing should be based on the reported eGFR value de-indexed from BSA by multiplying by the individual' s BSA and dividing by 1.73. CKD is diagnosed based on abnormaliti es of kidney structure or function, present for >3 months, with implication s for health and disease. CKD is classified and staged based on cause, eGFR and albuminuria (quantified as urine albumin to creatinine ratio). An eGFR >60 mL/min/1.73 m2 in the absence of increased urine albumin excretion or structural abnormaliti es does not represent CKD. eGFR CKD Interpretat ion (mL/min/1.7 3 m2) stage >=90 G1 Normal 60-89 G2 Mild decrease 45-59 G3A Mild to moderate decrease 30-44 G3B Moderate to severe decrease 15-29 G4 Severe decrease <15 G5 Kidney failure Vitamin B12 test may not yield results when protein level of sample is too elevated. Ordering Provider: REJI TENORIO Report Released Date/Time: Nov 19, 2024 10:36 AM Reporting Lab: JESSICA ERWIN [address] [phone] Performing Lab: JESSICA ERWIN [address] [address] [facility] PANEL 2 ALKALINE PHOSPHATASE [ENZYMATIC ACTIVITY/VO LUME] IN SERUM OR PLASMA 78 U/L 40 - 150 11/19 Specimen Type: PLASMA Comment: Estimated Glomerular Filtration Rate (eGFR) calculated using the 2020 Chronic Kidney Disease-Epi demiology (CKD-EPI) Collaborati on creatinine equation; units of measure are mL/min/1.73 m2. Results are only valid for adults (>=18 years) whose serum creatinine is in a steady state. eGFR calculation s are not valid for patients with acute kidney injury and for patients on dialysis. Creatinine- based estimates of kidney function may also be inaccurate in patients with reduced creatinine generation due to decreased muscle mass (e.g., malnutritio n, severe hypoalbumin emia, sarcopenia, chronic neuromuscul ar disease, amputations , severe heart failure or liver disease) and in patients with increased creatinine generation due to increased muscle mass (e.g., muscle builders, anabolic steroids) or increased dietary intake. As drug clearance is proportiona l to total GFR and not GFR indexed to body surface area (BSA), in individuals with a BSA substantial ly different than 1.73 m2, drug dosing should be based on the reported eGFR value de-indexed from BSA by multiplying by the individual' s BSA and dividing by 1.73. CKD is diagnosed based on abnormaliti es of kidney structure or function, present for >3 months, with implication s for health and disease. CKD is classified and staged based on cause, eGFR and albuminuria (quantified as urine albumin to creatinine ratio). An eGFR >60 mL/min/1.73 m2 in the absence of increased urine albumin excretion or structural abnormaliti es does not represent CKD. eGFR CKD Interpretat ion (mL/min/1.7 3 m2) stage >=90 G1 Normal 60-89 G2 Mild decrease 45-59 G3A Mild to moderate decrease 30-44 G3B Moderate to severe decrease 15-29 G4 Severe decrease <15 G5 Kidney failure Vitamin B12 test may not yield results when protein level of sample is too elevated. Ordering Provider: REJI TENORIO Report Released Date/Time: Nov 19, 2024 10:36 AM Reporting Lab: JESSICA ERWIN [address] [address] Performing Lab: JESSICA ERWIN [address] [address] [facility] PANEL 2 BILIRUBIN.D IRECT [MASS/VOLUM E] IN SERUM OR PLASMA 0.2 mg/dL 0.0 - 0.5 11/19 Specimen Type: PLASMA Comment: Estimated Glomerular Filtration Rate (eGFR) calculated using the 2020 Chronic Kidney Disease-Epi demiology (CKD-EPI) Collaborati on creatinine equation; units of measure are mL/min/1.73 m2. Results are only valid for adults (>=18 years) whose serum creatinine is in a steady state. eGFR calculation s are not valid for patients with acute kidney injury and for patients on dialysis. Creatinine- based estimates of kidney function may also be inaccurate in patients with reduced creatinine generation due to decreased muscle mass (e.g., malnutritio n, severe hypoalbumin emia, sarcopenia, chronic neuromuscul ar disease, amputations , severe heart failure or liver disease) and in patients with increased creatinine generation due to increased muscle mass (e.g., muscle builders, anabolic steroids) or increased dietary intake. As drug clearance is proportiona l to total GFR and not GFR indexed to body surface area (BSA), in individuals with a BSA substantial ly different than 1.73 m2, drug dosing should be based on the reported eGFR value de-indexed from BSA by multiplying by the individual' s BSA and dividing by 1.73. CKD is diagnosed based on abnormaliti es of kidney structure or function, present for >3 months, with implication s for health and disease. CKD is classified and staged based on cause, eGFR and albuminuria (quantified as urine albumin to creatinine ratio). An eGFR >60 mL/min/1.73 m2 in the absence of increased urine albumin excretion or structural abnormaliti es does not represent CKD. eGFR CKD Interpretat ion (mL/min/1.7 3 m2) stage >=90 G1 Normal 60-89 G2 Mild decrease 45-59 G3A Mild to moderate decrease 30-44 G3B Moderate to severe decrease 15-29 G4 Severe decrease <15 G5 Kidney failure Vitamin B12 test may not yield results when protein level of sample is too elevated. Ordering Provider: REJI TENORIO Report Released Date/Time: Nov 19, 2024 10:36 AM Reporting Lab: JESSICA ERWIN [address] [address] Performing Lab: JESSICA ERWIN [address] [address] [facility] B12 VITAMIN COBALAMIN (VITAMIN B12) [MASS/VOLUM E] IN SERUM OR PLASMA 699 pg/mL 213 - 816 11/19 Specimen Type: PLASMA Comment: Estimated Glomerular Filtration Rate (eGFR) calculated using the 2020 Chronic Kidney Disease-Epi demiology (CKD-EPI) Collaborati on creatinine equation; units of measure are mL/min/1.73 m2. Results are only valid for adults (>=18 years) whose serum creatinine is in a steady state. eGFR calculation s are not valid for patients with acute kidney injury and for patients on dialysis. Creatinine- based estimates of kidney function may also be inaccurate in patients with reduced creatinine generation due to decreased muscle mass (e.g., malnutritio n, severe hypoalbumin emia, sarcopenia, chronic neuromuscul ar disease, amputations , severe heart failure or liver disease) and in patients with increased creatinine generation due to increased muscle mass (e.g., muscle builders, anabolic steroids) or increased dietary intake. As drug clearance is proportiona l to total GFR and not GFR indexed to body surface area (BSA), in individuals with a BSA substantial ly different than 1.73 m2, drug dosing should be based on the reported eGFR value de-indexed from BSA by multiplying by the individual' s BSA and dividing by 1.73. CKD is diagnosed based on abnormaliti es of kidney structure or function, present for >3 months, with implication s for health and disease. CKD is classified and staged based on cause, eGFR and albuminuria (quantified as urine albumin to creatinine ratio). An eGFR >60 mL/min/1.73 m2 in the absence of increased urine albumin excretion or structural abnormaliti es does not represent CKD. eGFR CKD Interpretat ion (mL/min/1.7 3 m2) stage >=90 G1 Normal 60-89 G2 Mild decrease 45-59 G3A Mild to moderate decrease 30-44 G3B Moderate to severe decrease 15-29 G4 Severe decrease <15 G5 Kidney failure Vitamin B12 test may not yield results when protein level of sample is too elevated. Ordering Provider: REJI TENORIO Report Released Date/Time: Nov 19, 2024 10:36 AM Reporting Lab: [place] [id number] Performing Lab: [place] [id number] [facility] 25-OH VITAMIN D 25-HYDROXYV ITAMIN D3 [MASS/VOLUM E] IN SERUM OR PLASMA 69.8 ng/mL 20.0 - 50.0 11/19 H Specimen Type: SERUM Comment: The National Institutes of Health (NIH) recommendat ions state: <12 ng/mL - Deficient 20 - 50 ng/mL - Optimal Levels - adequate for most people. >50 ng/mL - Increased risk of hypercalciu jessica/other health problems - clinical correlation is required. These reference ranges represent clinical decision values rather than population- based reference values. Ordering Provider: REJI TENORIO Report Released Date/Time: Nov 19, 2024 10:36 AM Reporting Lab: [place] [id number] Performing Lab: [place] [phone] [facility] CBC/PLT LEUKOCYTES [#/VOLUME] IN BLOOD BY AUTOMATED COUNT 9.3 10*3/u L 5.0 - 10.0 11/19 Specimen Type: BLOOD No comment entered. Ordering Provider: REJI TENORIO Report Released Date/Time: Nov 19, 2024 10:36 AM Reporting Lab: [place] [id number] Performing Lab: [place] [id number] [facility] CBC/PLT ERYTHROCYTE S [#/VOLUME] IN BLOOD BY AUTOMATED COUNT 4.78 10*6/u L 4.6 - 6.2 11/19 Specimen Type: BLOOD No comment entered. Ordering Provider: REJI TENORIO Report Released Date/Time: Nov 19, 2024 10:36 AM Reporting Lab: [place] [phone] Performing Lab: [place] [phone] [facility] CBC/PLT HEMOGLOBIN [MASS/VOLUM E] IN BLOOD 14.2 g/dL 14.0 - 18.0 11/19 Specimen Type: BLOOD No comment entered. Ordering Provider: REJI TENORIO Report Released Date/Time: Nov 19, 2024 10:36 AM Reporting Lab: [place] [id number] Performing Lab: [place] [id number] [place] [address] CBC/PLT HEMATOCRIT [VOLUME FRACTION] OF BLOOD BY AUTOMATED COUNT 45.9 42.0 - 52.0 11/19 Specimen Type: BLOOD No comment entered. Ordering Provider: REJI TENORIO Report Released Date/Time: Nov 19, 2024 10:36 AM Reporting Lab: [place] [phone] Performing Lab: [place] [phone] [place] [address] CBC/PLT MCV [ENTITIC VOLUME] BY AUTOMATED COUNT 96.0 fL 80.0 - 94.0 11/19 H Specimen Type: BLOOD No comment entered. Ordering Provider: REJI TENORIO Report Released Date/Time: Nov 19, 2024 10:36 AM Reporting Lab: [place] [id number] Performing Lab: [place] [phone] [place] [address] CBC/PLT MCH [ENTITIC MASS] BY AUTOMATED COUNT 29.7 pg 27.0 - 31.0 11/19 Specimen Type: BLOOD No comment entered. Ordering Provider: REJI TENORIO Report Released Date/Time: Nov 19, 2024 10:36 AM Reporting Lab: [address] [address] Performing Lab: [place] [phone] [place] [address] CBC/PLT MCHC [MASS/VOLUM E] BY AUTOMATED COUNT 30.9 g/dL 32.0 - 36.0 11/19 L Specimen Type: BLOOD No comment entered. Ordering Provider: REJI TENORIO Report Released Date/Time: Nov 19, 2024 10:36 AM Reporting Lab: [place] [address] Performing Lab: [address] CBC/PLT PLATELETS [#/VOLUME] IN BLOOD 219 10*3/u L 150 - 450 11/19 Specimen Type: BLOOD No comment entered. Ordering Provider: REJI TENORIO Report Released Date/Time: Nov 19, 2024 10:36 AM Reporting Lab: [place] [address] Performing Lab: [address] CBC/PLT PLATELET MEAN VOLUME [ENTITIC VOLUME] IN BLOOD 9.8 fL 9.0 - 13.1 11/19 Specimen Type: BLOOD No comment entered. Ordering Provider: REJI TENORIO Report Released Date/Time: Nov 19, 2024 10:36 AM Reporting Lab: [place] [phone] Performing Lab: [address] CBC/PLT ERYTHROCYTE DISTRIBUTIO N WIDTH [ENTITIC VOLUME] BY AUTOMATED COUNT 12.9 11.0 - 16.0 11/19 Specimen Type: BLOOD No comment entered. Ordering Provider: REJI TENORIO Report Released Date/Time: Nov 19, 2024 10:36 AM Reporting Lab: [address] [address] Performing Lab: [place] [id number] [place] [address] CBC/PLT NUCLEATED ERYTHROCYTE S/100 ERYTHROCYTE S IN BLOOD 0.0 0.0 - 0.0 11/19 Specimen Type: BLOOD No comment entered. Ordering Provider: REJI TENORIO Report Released Date/Time: Nov 19, 2024 10:36 AM Reporting Lab: [address] [address] Performing Lab: JESSICA [address] [address] [facility] GLYCOHEMO GLOBIN HEMOGLOBIN A1C/HEMOGLO BIN.TOTAL IN BLOOD BY HPLC 7.0 4.4 - 5.6 11/19 H Specimen Type: BLOOD Comment: [facility] guidelines for A1c interpretat ion: Glycemic control targets are based on Shared Decision Making between clinicians and patients. Criteria used to establish an A1c target recommendat ion can be found at https://www .nc.gov/ana lityandpati entsafety/ and include the use of result accuracy and precision(C V) of the A1c tests clinicians utilize at their own sites of practice. Values obtained from A1C measurement s can vary. For typical A1C assays, a reported value of 7.0 could actually be between 6.72 and 7.28 if measured by a reference method. A reported value of 9.0 could actually be between 8.73 and 9.27. Ref: https://ngs p.org/CAPda ta.asp. The in-house Sonian D-100 analyzer has a historical CV <= 2%. Contact the laboratory for further performance characteris tics of this assay. Ordering Provider: REJI TENORIO Report Released Date/Time: Nov 19, 2024 10:36 AM Reporting Lab: [facility] [address] [address] Performing Lab: [address] [address] [facility] LIPID PROFILE CHOLESTEROL [MASS/VOLUM E] IN SERUM OR PLASMA 107 mg/dL 0 - 199 11/19 Specimen Type: PLASMA Comment: Estimated Glomerular Filtration Rate (eGFR) calculated using the 2020 Chronic Kidney Disease-Epi demiology (CKD-EPI) Collaborati on creatinine equation; units of measure are mL/min/1.73 m2. Results are only valid for adults (>=18 years) whose serum creatinine is in a steady state. eGFR calculation s are not valid for patients with acute kidney injury and for patients on dialysis. Creatinine- based estimates of kidney function may also be inaccurate in patients with reduced creatinine generation due to decreased muscle mass (e.g., malnutritio n, severe hypoalbumin emia, sarcopenia, chronic neuromuscul ar disease, amputations , severe heart failure or liver disease) and in patients with increased creatinine generation due to increased muscle mass (e.g., muscle builders, anabolic steroids) or increased dietary intake. As drug clearance is proportiona l to total GFR and not GFR indexed to body surface area (BSA), in individuals with a BSA substantial ly different than 1.73 m2, drug dosing should be based on the reported eGFR value de-indexed from BSA by multiplying by the individual' s BSA and dividing by 1.73. CKD is diagnosed based on abnormaliti es of kidney structure or function, present for >3 months, with implication s for health and disease. CKD is classified and staged based on cause, eGFR and albuminuria (quantified as urine albumin to creatinine ratio). An eGFR >60 mL/min/1.73 m2 in the absence of increased urine albumin excretion or structural abnormaliti es does not represent CKD. eGFR CKD Interpretat ion (mL/min/1.7 3 m2) stage >=90 G1 Normal 60-89 G2 Mild decrease 45-59 G3A Mild to moderate decrease 30-44 G3B Moderate to severe decrease 15-29 G4 Severe decrease <15 G5 Kidney failure Vitamin B12 test may not yield results when protein level of sample is too elevated. Ordering Provider: REJI TENORIO Report Released Date/Time: Nov 19, 2024 10:36 AM Reporting Lab: [place] [address] [address] Performing Lab: [place] [address] [address] [facility] LIPID PROFILE TRIGLYCERID E [MASS/VOLUM E] IN SERUM OR PLASMA 230 mg/dL 0 - 149 11/19 H Specimen Type: PLASMA Comment: Estimated Glomerular Filtration Rate (eGFR) calculated using the 2020 Chronic Kidney Disease-Epi demiology (CKD-EPI) Collaborati on creatinine equation; units of measure are mL/min/1.73 m2. Results are only valid for adults (>=18 years) whose serum creatinine is in a steady state. eGFR calculation s are not valid for patients with acute kidney injury and for patients on dialysis. Creatinine- based estimates of kidney function may also be inaccurate in patients with reduced creatinine generation due to decreased muscle mass (e.g., malnutritio n, severe hypoalbumin emia, sarcopenia, chronic neuromuscul ar disease, amputations , severe heart failure or liver disease) and in patients with increased creatinine generation due to increased muscle mass (e.g., muscle builders, anabolic steroids) or increased dietary intake. As drug clearance is proportiona l to total GFR and not GFR indexed to body surface area (BSA), in individuals with a BSA substantial ly different than 1.73 m2, drug dosing should be based on the reported eGFR value de-indexed from BSA by multiplying by the individual' s BSA and dividing by 1.73. CKD is diagnosed based on abnormaliti es of kidney structure or function, present for >3 months, with implication s for health and disease. CKD is classified and staged based on cause, eGFR and albuminuria (quantified as urine albumin to creatinine ratio). An eGFR >60 mL/min/1.73 m2 in the absence of increased urine albumin excretion or structural abnormaliti es does not represent CKD. eGFR CKD Interpretat ion (mL/min/1.7 3 m2) stage >=90 G1 Normal 60-89 G2 Mild decrease 45-59 G3A Mild to moderate decrease 30-44 G3B Moderate to severe decrease 15-29 G4 Severe decrease <15 G5 Kidney failure Vitamin B12 test may not yield results when protein level of sample is too elevated. Ordering Provider: REJI TENORIO Report Released Date/Time: Nov 19, 2024 10:36 AM Reporting Lab: [place] [address] [address] Performing Lab: [place] [address] [address] [facility] LIPID PROFILE CHOLESTEROL IN HDL [MASS/VOLUM E] IN SERUM OR PLASMA 42 mg/dL 40 - 69 11/19 Specimen Type: PLASMA Comment: Estimated Glomerular Filtration Rate (eGFR) calculated using the 2020 Chronic Kidney Disease-Epi demiology (CKD-EPI) Collaborati on creatinine equation; units of measure are mL/min/1.73 m2. Results are only valid for adults (>=18 years) whose serum creatinine is in a steady state. eGFR calculation s are not valid for patients with acute kidney injury and for patients on dialysis. Creatinine- based estimates of kidney function may also be inaccurate in patients with reduced creatinine generation due to decreased muscle mass (e.g., malnutritio n, severe hypoalbumin emia, sarcopenia, chronic neuromuscul ar disease, amputations , severe heart failure or liver disease) and in patients with increased creatinine generation due to increased muscle mass (e.g., muscle builders, anabolic steroids) or increased dietary intake. As drug clearance is proportiona l to total GFR and not GFR indexed to body surface area (BSA), in individuals with a BSA substantial ly different than 1.73 m2, drug dosing should be based on the reported eGFR value de-indexed from BSA by multiplying by the individual' s BSA and dividing by 1.73. CKD is diagnosed based on abnormaliti es of kidney structure or function, present for >3 months, with implication s for health and disease. CKD is classified and staged based on cause, eGFR and albuminuria (quantified as urine albumin to creatinine ratio). An eGFR >60 mL/min/1.73 m2 in the absence of increased urine albumin excretion or structural abnormaliti es does not represent CKD. eGFR CKD Interpretat ion (mL/min/1.7 3 m2) stage >=90 G1 Normal 60-89 G2 Mild decrease 45-59 G3A Mild to moderate decrease 30-44 G3B Moderate to severe decrease 15-29 G4 Severe decrease <15 G5 Kidney failure Vitamin B12 test may not yield results when protein level of sample is too elevated. Ordering Provider: REJI TENORIO Report Released Date/Time: Nov 19, 2024 10:36 AM Reporting Lab: [place] [address] [address] Performing Lab: [place] [address] [address] [facility] LIPID PROFILE CHOLESTEROL IN LDL [MASS/VOLUM E] IN SERUM OR PLASMA BY DIRECT ASSAY 37 mg/dL 0 - 100 11/19 Specimen Type: PLASMA Comment: Estimated Glomerular Filtration Rate (eGFR) calculated using the 2020 Chronic Kidney Disease-Epi demiology (CKD-EPI) Collaborati on creatinine equation; units of measure are mL/min/1.73 m2. Results are only valid for adults (>=18 years) whose serum creatinine is in a steady state. eGFR calculation s are not valid for patients with acute kidney injury and for patients on dialysis. Creatinine- based estimates of kidney function may also be inaccurate in patients with reduced creatinine generation due to decreased muscle mass (e.g., malnutritio n, severe hypoalbumin emia, sarcopenia, chronic neuromuscul ar disease, amputations , severe heart failure or liver disease) and in patients with increased creatinine generation due to increased muscle mass (e.g., muscle builders, anabolic steroids) or increased dietary intake. As drug clearance is proportiona l to total GFR and not GFR indexed to body surface area (BSA), in individuals with a BSA substantial ly different than 1.73 m2, drug dosing should be based on the reported eGFR value de-indexed from BSA by multiplying by the individual' s BSA and dividing by 1.73. CKD is diagnosed based on abnormaliti es of kidney structure or function, present for >3 months, with implication s for health and disease. CKD is classified and staged based on cause, eGFR and albuminuria (quantified as urine albumin to creatinine ratio). An eGFR >60 mL/min/1.73 m2 in the absence of increased urine albumin excretion or structural abnormaliti es does not represent CKD. eGFR CKD Interpretat ion (mL/min/1.7 3 m2) stage >=90 G1 Normal 60-89 G2 Mild decrease 45-59 G3A Mild to moderate decrease 30-44 G3B Moderate to severe decrease 15-29 G4 Severe decrease <15 G5 Kidney failure Vitamin B12 test may not yield results when protein level of sample is too elevated. Ordering Provider: REJI TENORIO Report Released Date/Time: Nov 19, 2024 10:36 AM Reporting Lab: [place] [facility] [address] [facility] [address] Performing Lab: [place] [address] [address] [facility] THYROID PROFILE THYROTROPIN [UNITS/VOLU ME] IN SERUM OR PLASMA 1.0785 m[IU]/ mL 0.3500 - 4.9400 11/19 Specimen Type: PLASMA Comment: Estimated Glomerular Filtration Rate (eGFR) calculated using the 2020 Chronic Kidney Disease-Epi demiology (CKD-EPI) Collaborati on creatinine equation; units of measure are mL/min/1.73 m2. Results are only valid for adults (>=18 years) whose serum creatinine is in a steady state. eGFR calculation s are not valid for patients with acute kidney injury and for patients on dialysis. Creatinine- based estimates of kidney function may also be inaccurate in patients with reduced creatinine generation due to decreased muscle mass (e.g., malnutritio n, severe hypoalbumin emia, sarcopenia, chronic neuromuscul ar disease, amputations , severe heart failure or liver disease) and in patients with increased creatinine generation due to increased muscle mass (e.g., muscle builders, anabolic steroids) or increased dietary intake. As drug clearance is proportiona l to total GFR and not GFR indexed to body surface area (BSA), in individuals with a BSA substantial ly different than 1.73 m2, drug dosing should be based on the reported eGFR value de-indexed from BSA by multiplying by the individual' s BSA and dividing by 1.73. CKD is diagnosed based on abnormaliti es of kidney structure or function, present for >3 months, with implication s for health and disease. CKD is classified and staged based on cause, eGFR and albuminuria (quantified as urine albumin to creatinine ratio). An eGFR >60 mL/min/1.73 m2 in the absence of increased urine albumin excretion or structural abnormaliti es does not represent CKD. eGFR CKD Interpretat ion (mL/min/1.7 3 m2) stage >=90 G1 Normal 60-89 G2 Mild decrease 45-59 G3A Mild to moderate decrease 30-44 G3B Moderate to severe decrease 15-29 G4 Severe decrease <15 G5 Kidney failure Vitamin B12 test may not yield results when protein level of sample is too elevated. Ordering Provider: REJI TENORIO Report Released Date/Time: Nov 19, 2024 10:36 AM Reporting Lab: [place] [address] [address] Performing Lab: [place] [address] [address] [facility] THYROID PROFILE FREE T4 0.92 ng/mL 0.70 - 1.48 11/19 Specimen Type: PLASMA Comment: Estimated Glomerular Filtration Rate (eGFR) calculated using the 2020 Chronic Kidney Disease-Epi demiology (CKD-EPI) Collaborati on creatinine equation; units of measure are mL/min/1.73 m2. Results are only valid for adults (>=18 years) whose serum creatinine is in a steady state. eGFR calculation s are not valid for patients with acute kidney injury and for patients on dialysis. Creatinine- based estimates of kidney function may also be inaccurate in patients with reduced creatinine generation due to decreased muscle mass (e.g., malnutritio n, severe hypoalbumin emia, sarcopenia, chronic neuromuscul ar disease, amputations , severe heart failure or liver disease) and in patients with increased creatinine generation due to increased muscle mass (e.g., muscle builders, anabolic steroids) or increased dietary intake. As drug clearance is proportiona l to total GFR and not GFR indexed to body surface area (BSA), in individuals with a BSA substantial ly different than 1.73 m2, drug dosing should be based on the reported eGFR value de-indexed from BSA by multiplying by the individual' s BSA and dividing by 1.73. CKD is diagnosed based on abnormaliti es of kidney structure or function, present for >3 months, with implication s for health and disease. CKD is classified and staged based on cause, eGFR and albuminuria (quantified as urine albumin to creatinine ratio). An eGFR >60 mL/min/1.73 m2 in the absence of increased urine albumin excretion or structural abnormaliti es does not represent CKD. eGFR CKD Interpretat ion (mL/min/1.7 3 m2) stage >=90 G1 Normal 60-89 G2 Mild decrease 45-59 G3A Mild to moderate decrease 30-44 G3B Moderate to severe decrease 15-29 G4 Severe decrease <15 G5 Kidney failure Vitamin B12 test may not yield results when protein level of sample is too elevated. Ordering Provider: REJI TENORIO Report Released Date/Time: Nov 19, 2024 10:36 AM Reporting Lab: [place] [address] [facility] [address] Performing Lab: [address] [address] [facility] Vital Signs Combined list of inpatient and outpatient Vital Signs from Department of [facility] and [facility], ranging from 12 months to all on record, depending upon the facility. Vital Sign Value Date Comments Source SYSTOLIC BLOOD PRESSURE 127 11/19/2024 09:42:26 [facility] DIASTOLIC BLOOD PRESSURE 62 11/19/2024 09:42:26 [facility] PULSE OXIMETRY 95 11/19/2024 09:42:26 [facility] PAIN 0 11/19/2024 09:42:26 [facility] HEIGHT 62 11/19/2024 09:42:26 [facility] TEMPERATURE 98.1 11/19/2024 09:42:26 [facility] PULSE 92 11/19[facility]2024 [facility]42[facility] RESPIRATION 18 11/19/2024 09:42:26 [facility] Encounters Combined list of: 1) Encounters from [facility] of [facility] facilities going backup to the last 18 months, not all [place] inpatient encounters are included; 2) Encounters from the Department of [facility] facilities going backup to 280 months. Location Location Details Encounter Type Encounter Number Reason For Visit Attending Provider ADM Date DC Date Status Disposition Source [facility] Outpatient Encounter [id number] 07/15 [place] [facility] Outpatient Encounter [id number] 11/12 [place] [facility] OFFICE [place]/P [place] 60 MIN [id number] Diagnos is: ICD-10- CM J44.9 Chronic obstruc tive pulmona ry disease , unspeci fied REJI TENORIO 11/19 [place] [facility] [id number] Diagnos is: ICD-10- CM 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 MACK Baker 11/19 [place] [facility] ELECTROCAR DIOGRAM COMPLETE [id number] Diagnos is: ICD-10- CM 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 YAMIL,ASSET MANAGER IG A 11/19 [place] [facility] NQHP OL DIG ASSMT&MGMT 5-10 [id number] Diagnos is: ICD-10- CM 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 Social History Type Response Date Comment [facility] e Tobacco smoking status NHIS [place]-TOBACCO USE FORMER CIGARETTES 11/19/2024 [facility] History of tobacco use [place]-TOBACCO NEVER USED OTHER TYPE 11/19/2024 [facility] Advance Directives List of completed, amended, or rescinded Advance Directives on record at Department of [facility] facilities. An actual copy of the Directive is not included. Date Advance Directive Provider Source 12/21/2024 ADVANCE DIRECTIVE DISCUSSION Thu MULLER [facility] 12/08/2024 ADVANCE DIRECTIVE BERT WALKER [facility]
--- OUTSIDE RECORDS SUMMARY | 2025-02-15 10:01 | XMS_ITS | Clinical Summary ---
Author Organization [facility] Address [address] [place] [address] Care Team Providers Care Cuff Knitter Name Role Phone Morris Hines MD Primary Care Provider [phone] Allergies No known active allergies Medications Aspirin Buf,CaCarb-MgCa rb-MgO, 81 MG tablet 9 Active furosemide (Lasix) 20 MG tablet 2 Active losartan (Cozaar) 50 MG tablet TAKE 1 TABLET 1 TIME EACH DAY 2 Active rosuvastatin (Crestor) 20 MG tablet TAKE 1 TABLET 1 TIME EACH DAY 2 Active metoprolol succinate XL (Toprol-XL) 50 MG 24 hr tablet 2 Active Multiple Vitamins-Iron tablet once daily 9 Active niacin 100 MG tablet TAKE 1 TABLET DAILY DIRECTED. 0 Active spironolactone (Aldactone) 50 MG tablet 2 Active ferrous gluconate (Fergon) 324 (38 Fe) MG tablet once daily 9 Active Xarelto 2.5 MG tablet 2 Active metFORMIN XR (Glucophage-XR) 500 MG 24 hr tablet TAKE 2 TABLETS 1 TIME EACH DAY 2 Active nitroglycerin (NitrolinguaL) 0.4 MG/SPRAY spray SPRAY 1 TIME UNDER THE TONGUE EVERY 5 MINUTES NEEDED FOR CHEST PAIN. IF 3 SPRAYS NEEDED, GO TO E.R. 2 Active guaiFENesin (Humibid 3) 400 MG tablet Take 400 mg by mouth every 4 (four) hours. Active Krill Oil 1000 MG capsule Take by mouth. Acti ve tiotropium-olod aterol (Stiolto Respimat) 2.5-2.5 MCG/ACT aerosol solution inhaler Inhale 2 Inhalation 1 (one) time each day. Active ascorbic acid (vitamin C) 500 MG tablet Take 500 mg by mouth 1 (one) time each day. Active cholecalciferol (Vitamin D-3) 250 MCG (81021 UT) capsule Take 10,000 Units by mouth 1 (one) time each day. Active zinc gluconate 50 MG tablet Take 50 mg by mouth 1 (one) time each day. 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 Family History Medical History Relation Name Comments Cardiac disorder Father Other cancer Father Cardiac disorder Mother Hypertension Mother Other cancer Mother Relation Name Status Comments Father Mother Social History Tobacco Use Types Packs/Day Years Used Date Smoking Tobacco: Former Smokeless Tobacco: Never Tobacco Cessation:Counseling Given: Not Answered Alcohol Use Standard Drinks/Week Comments Not Currently 0 (1 standard drink = 0.6 oz pure alcohol) Alcoholic Drinks/day: Former consumption of alcohol Sex and Gender Information Value Date Recorded Sex Assigned at Not on file Legal Sex Male 6:13 PM EDT Gender Identity Not on file Sexual Orientation Not on file Last Filed Vital Signs Vital Sign Reading Time Taken Comments Blood Pressure 109/62 04/09/2022 2:35 PM EDT Pulse 73 04/09/2022 2:35 PM EDT Temperature 36.6 C (97.8 F) 04/09/2022 2:35 PM EDT Respiratory Rate - - Oxygen Saturation 95% 04/09/2022 2:35 PM EDT Inhaled Oxygen Concentration - - Weight 88.1 kg (194 lb 3.2 oz) 04/09/2022 2:35 P M EDT Height 157.5 cm (5' 2 ) 04/09/2022 2:35 PM EDT Body Mass Index 35.52 04/09/2022 2:35 PM EDT Plan of Treatment Health Maintenance Due Date Last Done Comments [facility]-Depression Screening 1943 [facility]-Medicare Annual Wellness (AWV) 1945 [facility]-Infant/Child/Adol SDOH Screenings 1945 [facility]-Obesity Intervention 12/21/1949 [facility]- SDOH Screenings 12/21/1961 [facility]-Adult SDOH Screenings 12/21/1961 [facility]-DTaP,Tdap,and Td Vaccine s (1 - Tdap) 12/21/1962 [facility]-Zoster Vaccines (1 of 2) 12/21/1993 [facility]-RSV Vaccine: 60+ Years o r (1 - 1-dose 75+ series) 12/21/2018 [facility]-Pneumococcal Vaccine: 50 + Years (2 of 2 - PCV) 06/29/2022 06/29/2021, 06/08/1997 [id number] Vaccine ( season) 2024 05/18/2021, 10/20/2020, 09/22/2020 [facility]-Influenza Vaccine (Seas[place] n Ended) 2025 06/05/2021 HPV Vaccines Aged Out No longer eligi ble based on patient's age to complete this topic [facility]-HIB Vaccines Aged Out No longer e ligible based on patient's age to complete this topic [facility]-Hepatitis A Vaccines Aged Out No longer eligible based on patient's age to complete this topic [facility]-IPV Vaccines Aged Out No longer e ligible based on patient's age to complete this topic [facility]-Rotavirus Vaccines Aged Out No lo nger eligible based on patient's age to complete this topic Additional Health Concerns Infection Onset Date Last Indicated MRSA Comment:Pt positve for MRSA from an [facility] 01/24/2019 01/17/2021 Insurance [facility] MEDICARE Care Teams Cuff Knitter Relationship Specialty Start Date End Date Morris Hines MD [address] [facility] [address] [place] [address] PCP - General 01/06/21
--- OUTSIDE RECORDS SUMMARY | 2025-02-15 10:02 | XMS_ITS | Patient Health Record ---
[facility] [address] [facility] [address] [place] [id number] Care Team Providers Care Radio Electronics Technician Name Role Phone Morris Hines Primary Care Provider Allergies No Known Allergies Results Component Value Reference Range Notes Overnight Oximetry Reviewed date:01/01/2025 08:42:04 AM Interpretation: Performing Lab: Notes/Report: CBC Fingerstick (in house) Reviewed date:01/29/2025 04:59:54 [...] - 38 plat 162 100 - 400 H-BMP Reviewed date:11/05/2024 11:10:47 AM Interpretation: Performing Lab: Notes/Report: NA 137 136-145 mmol/L K 4.2 3.5-5.1 mmoL/L CL 100 98-107 mmol/L CO2 31 22.0-30.0 mmol/L GAP 10.2 5-15 mEq/L BUN 12 9-20 mg/dl Delta: 18 on 11/04/24-529 CREATT 0.80 0.66-1.25 mg/dl CRCLE 72 50-200 mL/min GFRAA 113 >60 ML/MIN EGFR 93 >60 ml/min GLU 128 74-100 mg/dl CA 8.8 8.4-10.2 mg/dl H-CBC Reviewed date:11/05/2024 11:10:47 AM Interpretation: Performing Lab: Notes/Report: WBC 9.2 4.8-10.8 K/mm3 Delta: 16.4 o n 11/04/24 RBC 3.72 4.60-6.20 M/mm3 HGB 11.0 14.1-18.0 g/dL HCT 35.7 42.0-52.0 % MCV 96.0 80-94 fl MCH 29.6 27.0-31.2 pg MCHC 30.8 31.8-35.4 g/dL RDW 13.1 11.5-17.5 % PLT 208 142-424 K/mm3 MPV 9.8 7.4-10.4 fl NE% 77.2 37.0-80.0 % LY% 11.5 10-50 % MO% 9.6 1.7-9.3 % EO% 0.7 0.1-12.0 % BA% 0.3 0.1-2.0 % NE# 7.1 1.8-7.8 K/mm3 LY# 1.1 0.7-4.5 K/mm3 MO# 0.9 0.1-1.0 K/mm3 EO# 0.1 0.0-0.4 K/mm3 BA# 0.0 0-0.2 K/mm3 H-BMP Reviewed date:11/04/2024 08:36:00 AM Interpretation: Performing Lab: Notes/Report: NA 134 136-145 mmol/L K 4.3 3.5-5.1 mmoL/L CL 97 98-107 mmol/L CO2 30 22.0-30.0 mmol/L GAP 11.3 5-15 mEq/L BUN 18 9-20 mg/dl CREATT 0.90 0.66-1.25 mg/dl Delta: 1.40 on 11/02/24 CRCLE 72 50-200 mL/min GFRAA 98 >60 ML/MIN Delta: 59 on 11/02/24 EGFR 81 >60 ml/min GLU 127 74-100 mg/dl CA 8.6 8.4-10.2 mg/dl H-DIFF Reviewed date:11/04/2024 08:36:00 AM Interpretation: Performing Lab: Notes/Report: LUDWIG MANUAL DIFFERENTIAL MANUAL DIFF TCC 100 NEUT%M 84 42-76 % LYMPH%M 13 10-50 % MONO%M 3 2-9 % PLTE Normal RM Normal H-CBC Reviewed date:11/04/2024 08:36:00 AM Interpretation: Performing Lab: Notes/Report: WBC 16.4 4.8-10.8 K/mm3 RBC 3.77 4.60-6.20 M/mm3 HGB 11.4 14.1-18.0 g/dL HCT 35.8 42.0-52.0 % MCV 95.0 80-94 fl MCH 30.2 27.0-31.2 pg MCHC 31.8 31.8-35.4 g/dL RDW 13.2 11.5-17.5 % PLT 176 142-424 K/mm3 MPV 9.7 7.4-10.4 fl NE% 82.4 37.0-80.0 % LY% 10.0 10-50 % MO% 6.8 1.7-9.3 % EO% 0.1 0.1-12.0 % BA% 0.1 0.1-2.0 % NE# 13.5 1.8-7.8 K/mm3 LY# 1.6 0.7-4.5 K/mm3 MO# 1.1 0.1-1.0 K/mm3 EO# 0.0 0.0-0.4 K/mm3 BA# 0.0 0-0.2 K/mm3 H-Sputum Culture with Gram Alda noriega Reviewed date:11/06/2024 10:09:01 AM Interpretation: Performing Lab: Notes/Report: GS Gram Stain: GS <10 White Blood Cells/LPF GS <10 Epithelial Cells / LPF GS Few Gram Positive Cocci in Chains CUSPU Normal Respiratory Marisela Glucose (In-House) Reviewed date:03/02/2024 11:47:22 AM Interpretation:197 Performing Lab: Notes/Report: 197 blood glucose 197 74 - 106 mg/dL CBC Venipuncture (in house) Reviewed date:03/02/2024 11:30:51 AM Interpretation:Normal Performing Lab: Notes/Report: Normal wbc 7.1 3.5 - 10 lymph 20.3% 15 - 50 mid 4.7% 2 - 15 gran 75.0% 35 - 80 rbc 4.67 3.5 - 5.5 hgb 14.1 11.5 - 16.5 hct 43.9 35 - 55 mcv 93.9 75 - 100 mch 30.3 25 - 35 mchc 32.2 31 - 38 platlet 183 100 - 400 Glycohemoglobin A1c (in hous e) Reviewed date:03/02/2024 11:47:22 AM Interpretation:7.2 Performing Lab: Notes/Report: 7.2 glycohemoglobin 7.2% 5 - 6.5 % P-Comprehensive Metabolic Pa raulito (CMP) Reviewed date:03/02/2024 11:47:22 AM Interpretation:cl 94, co2- 33, gluc 173 Performing Lab: Notes/Report: Test performed by [facility] [address] [place] [address] , [address], [place] [address] Luis Eduardo Mayo MD, Costume Shop Manager CLIA: [id number] Sodium 138 135-145 mmol/L Potassium 4.6 3.5-5.3 mmol/L Chloride 94 97-108 mmol/L CO2 33 22-32 mmol/L Glucose 173 65-99 mg/dL BUN 16 8-23 mg/dL Creatinine 1.10 0.70-1.30 mg/dL Calcium 9.7 8.6-10.4 mg/dL eGFR by Creatinine 68 >59 mL/min/1.73m2 Protein 7.2 6.0-8.3 g/dL Albumin 4.7 3.5-5.3 g/dL Alkaline Phosphatase 83 40-129 IU/L ALT (SGPT) 24 <5-55 IU/L AST (SGOT) 26 <5-46 IU/L Bilirubin, Total 0.6 <0.2-1.2 mg/dL A/G Ratio 1.9 1.1-2.5 mg/dL P-Lipid Panel Reviewed date:03/02/2024 11:47:22 AM Interpretation:trigs 193, hdl 37 Performing Lab: Notes/Report: Test performed by [facility] [address] [place] [address] , [address], [place] [address] Luis Eduardo Mayo MD, Costume Shop Manager CLIA: [id number] Cholesterol 109 <200 mg/dL Triglycerides 193 <150 mg/dL HDL Cholesterol 37 >39 mg/dL Cholesterol / HDL Ratio 2.95 0.00-4.99 Ratio Non-HDL Cholesterol 72 <130 mg/dL LDL Cholesterol (Calculation) 33 <130 mg/dL LDL Cholesterol Levels* Less than 100 mg/dL Optimal 100 to 129 mg/dL Near Optimal/ Above Optimal 130 to 159 mg/dL Borderline High 160 to 189 mg/dL High 190 mg/dL and above Very High * Categories as recommended by the 2004 ATPIII guidelines LDL/HDL Ratio 0.9 <3.3 Ratio LDL Cholesterol Patient History Test Date: 03/01/2022 LDL Results: 37 Units: mg/dL % Change: - Test Date: 02/28/2023 LDL Results: 38 Units: mg/dL % Change: +2% Test Date: 02/26/2024 LDL Results: 33 Units: mg/dL % Change: -13% P-Phosphorus Reviewed date:03/02/2024 11:47:22 AM Interpretation:Normal Performing Lab: Notes/Report: Test performed by [email or web address] , [address], [place] [address] Luis Eduardo Mayo MD, Costume Shop Manager CLIA: [id number] Phosphorus 3.1 2.5-4.5 mg/dL P-TSH reflex to FT4 Reviewed date:03/02/2024 11:47:22 AM Interpretation:Normal Performing Lab: Notes/Report: Test performed by [email or web address] , [address], [place] [address] Luis Eduardo Mayo MD, Costume Shop Manager CLIA: [id number] TSH reflex to FT4 1.56 0.43-5.25 mU/L P-Microalbumin/Creatinine, R andom Urine Sample Reviewed date:03/02/2024 11:47:22 AM Interpretation:Normal Performing Lab: Notes/Report: Test performed by [email or web address] , [address], [place] [address] Luis Eduardo Mayo MD, Costume Shop Manager CLIA: [id number] Albumin/Creatinine Ratio, Urine 21 0-30 ug/mg Microalbumin, Urine, Random 2.4 Creatinine, Urine 114.1 P-Uric Acid Reviewed date:03/02/2024 11:47:22 AM Interpretation:Normal Performing Lab: Notes/Report: Test performed by [email or web address] , [address], [place] [address] Luis Eduardo Mayo MD, Costume Shop Manager CLIA: [id number] Uric Acid 6.4 3.4-8.0 mg/dL Glucose (In-House) Reviewed date:08/28/2024 10:17:17 AM Interpretation:190 Performing Lab: Notes/Report: 190 blood glucose 190 74 - 106 mg/dL Glycohemoglobin A1c (in hous e) Reviewed date:08/28/2024 10:17:17 AM Interpretation:7.3 Performing Lab: Notes/Report: 7.3 glycohemoglobin 7.3% 5 - 6.5 % P-CBC With Platelet No Diffe rential Reviewed date:08/28/2024 10:17:17 AM Interpretation:Normal Performing Lab: Notes/Report: Test performed by [facility] [address] [place] [address] , [address], [place] [address] Luis Eduardo Mayo MD, Costume Shop Manager CLIA: [id number] WBC 10.2 3.8-11.5 K/uL Red Blood Cell Count (RBC) 4.61 4.20-5.70 M/mm3 Hemoglobin (Hgb) 14.3 13.1-17.5 gm/dL Hematocrit (HCT) 43.0 39.0-51.0 % MCV 93.3 79.0-99.0 fL MCH 31.0 26.9-35.0 pg MCHC 33.3 30.4-34.8 g/dL RDW 43.5 38.2-53.0 fL Platelet Count 184 137-397 K/cumm P-Comprehensive Metabolic Pa raulito (CMP) Reviewed date:08/28/2024 10:17:17 AM Interpretation:gluc 166 Performing Lab: Notes/Report: Test performed by [facility] [address] [place] [address] , [address], [place] [address] Luis Eduardo Mayo MD, Costume Shop Manager CLIA: [id number] Sodium 141 135-145 mmol/L Potassium 4.4 3.5-5.3 mmol/L Chloride 98 97-108 mmol/L CO2 32 22-32 mmol/L Glucose 166 65-99 mg/dL BUN 18 8-23 mg/dL Creatinine 1.14 0.70-1.30 mg/dL Calcium 9.9 8.6-10.4 mg/dL eGFR by Creatinine 65 >59 mL/min/1.73m2 Protein 7.2 6.0-8.3 g/dL Albumin 4.5 3.5-5.3 g/dL Alkaline Phosphatase 82 40-129 IU/L ALT (SGPT) 17 <5-55 IU/L AST (SGOT) 15 <5-46 IU/L Bilirubin, Total 0.7 <0.2-1.2 mg/dL A/G Ratio 1.7 1.1-2.5 P-Lipid Panel Reviewed date:08/28/2024 10:17:17 AM Interpretation:trigs 192, hdl 39 Performing Lab: Notes/Report: Test performed by [facility] [address] [facility] , [address], [place] [address] Luis Eduardo Mayo MD, Costume Shop Manager NIDIA: [id number] Cholesterol 108 <200 mg/dL Triglycerides 192 <150 mg/dL HDL Cholesterol 39 >39 mg/dL Cholesterol / HDL Ratio 2.77 0.00-4.99 Ratio Non-HDL Cholesterol 69 <130 mg/dL LDL Cholesterol (Calculation) 31 <130 mg/dL LDL Cholesterol Levels* Less than 100 mg/dL Optimal 100 to 129 mg/dL Near Optimal/ Above Optimal 130 to 159 mg/dL Borderline High 160 to 189 mg/dL High 190 mg/dL and above Very High * Categories as recommended by the 2004 ATPIII guidelines LDL/HDL Ratio 0.8 <3.3 Ratio LDL Cholesterol Patient History Test Date: 02/28/2023 LDL Results: 38 Units: mg/dL % Change: +2% Test Date: 02/26/2024 LDL Results: 33 Units: mg/dL % Change: -13% Test Date: 08/27/2024 LDL Results: 31 Units: mg/dL % Change: -6% P-Phosphorus Reviewed date:08/28/2024 10:17:17 AM Interpretation:Normal Performing Lab: Notes/Report: Test performed by [facility] [address] [place] [address] , [facility], [place] [address] Luis Eduardo Mayo MD, Costume Shop Manager CLIA: [id number] Phosphorus 3.3 2.5-4.5 mg/dL Reason For Referral Diagnosis 1 Acute respiratory fa ilure with hypoxia (J96.01) Diagnosis 2 Chronic obstructive pulmonary disease, unspecified COPD type (J44.9) Referral Organization [facility] Referring Provider First Name Morris Referring Provider Last Name Donny Referring Provider Speciality Family [facility] ctice Referred Organization [facility] OP Referred Provider Tello Wilks Referred Address [address] [place] [address] [facility] [id number], Referred Provider Specialty Pulmonary Di seases General Notes Radha Oquendo 11/18/19 10:27:37 AM > faxed to Dr. Wilks's office, Radha Oquendo 11/23/2024 10:16:48 AM > 02/22/2025 at 02:00pm Referral Priority Routine Medications Medication SIG (Take, Route, Frequency, Duration) Notes Start Date End Date Status Gabapentin 600 MG 1 tablet Orally Two times a day for 30 day(s) 09/14/2024 Active Nitroglycerin 0.4 MG/SPRAY 1 spray(s) ahn blingually every 5 minutes as needed Active Ferrous Gluconate 324 (38 Fe) MG 1 tab(s) orally once a day 02/13/2019 Active Losartan Potassium 50 MG 1 tab(s) orally once a day for 90 days Active Multivitamin - 1 tab(s) orally once a day Active metFORMIN HCl ER 500 MG 2 Tablets Orally Once a day for 90 days Active Promethazine-DM 6.25-15 MG/5ML 5 mL as needed Orally every 6 hrs 01/29/2025 Active Viagra 100 MG 1 tab(s) orally once a day as needed 10/13/2013 Active Pantoprazole Sodium 40 mg 1 tablet Orall y Once a day for 90 days Active Zithromax Z-Rio 250 MG as directed Orall y daily for 5 days 01/29/2025 Active Niacin ER 500 MG 1 cap(s) orally once a day (at bedtime) 11/06/2016 Active Rosuvastatin Calcium 20 MG 1 tab(s) oral ly once a day for 90 days Active predniSONE 20 MG 1 tablet with food o r milk Orally twice a day for 5 days 01/29/2025 Active Aspirin 81 MG 1 tablet Orally Once a day for 30 day(s) Active Portable Oxygen portable with conserving device as needed as needed COPD 12/30/2024 Active Trelegy Ellipta 100-62.5-25 MCG/ACT 1 puff Inhalation Once a day 11/17/2024 Active Xarelto 2.5 MG TAKE 1 TABLET TWICE DAILY for 90 Active Spironolactone 50 MG TAKE 1 TABLET EVERY DAY for 90 Active Furosemide 20 MG TAKE 2 TABLETS TWICE DAILY for 90 Active Immunizations Vaccine Route Administration Date Status Comme nts COVID 19 Moderna Unknown 09/22/2020 Administered COVID 19 Moderna Unknown 10/20/2020 Administered COVID 19 Moderna Unknown 05/18/2021 Administered Fluzone High Dose (65yr and older) IM Intramuscular 05/09/2016 Administered Fluzone High Dose (65yr and older) IM Intramuscular 06/15/2020 Administered Fluzone High Dose (65yr and older) IM Intramuscular 06/05/2021 Administered Fluzone High Dose (65yr and older) IM Intramuscular 05/23/2022 Administered Fluzone High Dose (65yr and older) IM Intramuscular 05/08/2023 Administered Fluzone High Dose (65yr and older) IM Intramuscular 05/15/2024 Administered PNEUMOVAX 23 VACCINE Unknown 06/08/1997 Administered PNEUMOVAX 23 VACCINE IM Intramuscular 10/21/2015 Administe red PNEUMOVAX 23 VACCINE IM Intramuscular 06/29/2021 Administe red Prevnar (PCV13) IM Intramuscular 10/13/2013 Administered Prevnar (PCV20) IM Intramuscular 08/31/2022 Administered xFlu shot-36 months and older IM Intramuscular 07/21/2005 Administered xFlu shot-36 months and older IM Intramuscular 07/25/2007 Administered xFlu shot-36 months and older IM Intramuscular 07/02/2008 Administered Problems Problem Type SNOMED Code ICD Code Onset Dates Problem Status W/U Status Risk Notes Problem Hypercalcemia (81838477) Hypercalcemia (E83.52) Active confirmed Problem 93279580 Essential hypertension (I10) Active confirmed Problem 30605240 Duodenal ulcer (K26.9) Active confirmed Problem 461314575 BMI 32.0-32.9,ad ult (Z68.32) Active confirmed Problem COPD exacerbatio n (J44.1) Active confirmed Problem 34796297 Lumbar spinal stenosis (M48.06) Active confirmed Problem Hyperglycemia due to type 2 diabetes mellitus (695697094095373 ) Type 2 diabetes mellitus with hyperglycemia (E11.65) Active confirmed Problem 712722840 Lumbago with sciatica, right side (M54.41) Active confirmed Problem 582347008 Mixed hyperlipidemia (E78.2) Active confirmed Problem 009656224 Lumbago with sciatica, left side (M54.42) Active confirmed Problem 974399598 Encounter for immunization (Z23) Active confirmed Problem 807760915 Pulmonary nodule (R91.1) Active confirmed Problem 53486199 Lumbar degenerat yordan disc disease (M51.36) Active confirmed Problem 448018315 History of colon polyps (Z86.010) Active confirmed Problem 36951854 Chronic obstruct yordan pulmonary disease, unspecified COPD type (J44.9) Active confirmed Problem 4739077743992 Coronary artery disease involving [place] coronary artery of [place] heart without angina pectoris (I25.10) Active confirmed Problem 529887711 Gastroesophageal reflux disease, esophagitis presence not specified (K21.9) Active confirmed Problem 670878868 Non morbid obesi ty, unspecified obesity type (E66.9) Active confirmed Problem 722690475 Erectile dysfunction, unspecified erectile dysfunction type (N52.9) Active confirmed Problem 36719743 Right sided sciatica (M54.31) Active confirmed Problem Diabetic peripheral neuropathy (926470489) Diabetic peripheral neuropathy (E11.42) Active confirmed Problem 002862015 Type 2 diabetes mellitus without complication, without long-term current use of insulin (E11.9) Active confirmed Problem 200357337 Lumbar facet arthropathy (M12.88) Active confirmed Problem 890980504 Body mass index (BMI) of 34.0-34.9 in adult (Z68.34) Active confirmed Problem 824868952 Non morbid obesi ty (E66.9) Active confirmed Problem 4747142 Gastritis, prese nce of bleeding unspecified, unspecified chronicity, unspecified gastritis type (K29.70) Active confirmed Problem 217927297 CKD (chronic kid wilda disease) stage 3, GFR 30-59 ml/min (N18.3) Active confirmed Problem 633343345 Stage 3 chronic kidney disease, unspecified whether stage 3a or 3b CKD (N18.30) Active confirmed Problem 535116716 Stage 3a chronic kidney disease (CKD) (N18.31) Active confirmed Vital Signs Heart Rate 60 /min 01/29/2025 Blood pressure diastolic 60 mm Hg 01/29/2025 Height 64 in 01/29/2025 Blood pressure systolic 110 mm Hg 01/29/2025 Weight 185.2 lbs 01/29/2025 BMI 31.79 kg/m2 01/29/2025 Encounters Encounter Location Date Provider Diagnosis [facility] [address] [place], [place] [id number] 03/02/2024 Morris Proctor [facility] [address] [place], [place] [id number] 03/17/2024 Morris Proctor [facility] [address] [place], [place] [id number] 08/28/2024 Morris Proctor [facility] [address] [place], [place] [id number] 09/14/2024 Morris Proctor [facility] [address] [place], [place] [id number] 11/06/2024 Morris Proctor [facility] [address] [place] [id number] 12/29/2024 Morris Proctor [facility] [address] [place], [place] [id number] 01/01/2025 Morris Proctor Type 2 diabetes robi itus without complication, without long-term current use of insulin E11.9 [facility] [address] [facility] [address] [facility] [address] [place], [place] [id number] 01/12/2025 Morris Proctor Mixed hyperlipidemia E78.2 [facility] [address] [facility] [address] [facility] [address] [place], [place] [id number] 02/26/2024 Morris Proctor Type 2 diabetes robi itus without complication, without long-term current use of insulin E11.9 ; Essential hypertension I10 ; Mixed hyperlipidemia E78.2 ; Chronic obstructive pulmonary disease, unspecified COPD type J44.9 and Stage 3a chronic kidney disease (CKD) N18.31 [facility] [address] [facility] [address] [facility] [address] [place], [place] [id number] 12/18/2024 Morris Proctor Chronic obstructive pulmonary disease, unspecified COPD type J44.9 ; Acute hypoxemic respiratory failure J96.01 ; Non morbid obesity E66.9 and BMI 32.0-32.9,adult Z68.32 [facility] [address] [facility] [address] [place], [place] [id number] 01/29/2025 Morris Proctor COPD exacerbation J4 4.1 [facility] [address] [facility] [address] [place], [place] [id number] 08/27/2024 Morris Proctor Essential hypertensi on I10 ; Mixed hyperlipidemia E78.2 ; Dizziness R42 ; Type 2 diabetes mellitus without complication, without long-term current use of insulin E11.9 and Stage 3a chronic kidney disease (CKD) N18.31 [facility] [address] [facility] [address] [facility] [address] [place], [place] [id number] 11/17/2024 Morris Proctor Community acquired pneumonia, bilateral J18.9 ; Acute respiratory failure with hypoxia J96.01 and Chronic obstructive pulmonary disease, unspecified COPD type J44.9 [facility] [address] [facility] [address] [facility] [address] [place], [place] [id number] 05/15/2024 Morris Proctor Encounter for immunization Z23 Assessments Encounter Date Diagnosis (ICD Code) Assessment Notes Treatment Notes Treatment Clinical Notes Section Notes 02/26/2024 Essential hypertension (ICD-10 - I10) 02/26/2024 Type 2 diabetes mellitus without complication, without long-term current use of insulin (ICD-10 - E11.9) 05/15/2024 Encounter for immunization (ICD-10 - Z23) 08/27/2024 Essential hypertension (ICD-10 - I10) Plan to decrease Lasix use and monitor symptoms. He will call with a progress report in a few days. 08/27/2024 Mixed hyperlipidemia (ICD-10 - E78.2) 11/17/2024 Acute respiratory failure with hypoxia (ICD-10 - J96.01) Continue supplemental oxygen use 11/17/2024 Community acquired pneumonia, bilateral (ICD-10 - J18.9) Improved 12/18/2024 Acute hypoxemic respiratory failure (ICD-10 - J96.01) 01/01/2025 Type 2 diabetes mellitus without complication, without long-term current use of insulin (ICD-10 - E11.9) 01/12/2025 Mixed hyperlipidemia (ICD-10 - E78.2) 01/29/2025 COPD exacerbation (ICD-10 - J44.1) Patient declines hospital admission. He will increase supplemental oxygen to 3 L/min for a few days. He will call with a progress report 12/18/2024 Chronic obstructive pulmonary disease, unspecified COPD type (ICD-10 - J44.9) 12/18/2024 Non morbid obesity (ICD-10 - E66.9) 11/17/2024 Chronic obstructive pulmonary disease, unspecified COPD type (ICD-10 - J44.9) 08/27/2024 Dizziness (ICD-10 - R42) 02/26/2024 Mixed hyperlipidemia (ICD-10 - E78.2) 02/26/2024 Chronic obstructive pulmonary disease, unspecified COPD type (ICD-10 - J44.9) 12/18/2024 BMI 32.0-32.9,adult (ICD-10 - Z68.32) 08/27/2024 Type 2 diabetes mellitus without complication, without long-term current use of insulin (ICD-10 - E11.9) 08/27/2024 Stage 3a chronic kidney disease (CKD) (ICD-10 - N18.31) 02/26/2024 Stage 3a chronic kidney disease (CKD) (ICD-10 - N18.31) 11/17/2024 Other Discharge summary with available lab/diagnostic imaging results obtained and reviewed. Discharge medication list reconciled. Appropriate counseling provided. Moderate Complexity Plan Of Treatment Next Appt Details Provider Name:Morris Go ry, 06/18/2025 09:30:00 AM, [address], [address], [place], [place], [id number], Insurance Providers Payer Name Payer Address Payer Phone Subscriber Number Group Number Insured Name Patient Relationship to Insured Coverage Start Date Coverage End Date [employer] (MEDICAR E) [address] [address] [place] [address] [id number] MEHUL MA Self - patient is the insured Medical (General) History Medical History History ICD Code Coronary Artery Disease, s/p CABG Myocardial Infarction - December 1999 Type 2 Diabetes Hypertenstion Hyperlipidemia peptic ulcer disease Erectile dysfunction COPD 80 pack year smoking history, quit 2014 Pulmonary nodule, s/p CT in 2015 & 2016 chronic back pain Colon polyps Patient declines prostate cancer screeni November 2017 Upper GI bleed, s/p EGD at January 2019 Duodenal ulcer Surgical History Surgery Date(Month/Year) Coronary Artery Bypass Graft - 3 vessels, done by Dr. Marie at [facility] 1999 Heart Cath x2 - Dr. Long 07/2016 EKG 10/17/2016 Dr. Kwon - Colonoscopy 07/2016, 017 Excision of anal polyp - Dr. Kwon 7 Cardiac Stent x2 02/11/2018 EGD 01/2019 Hospitalization History Reason Date(Month/Year) LINDSEY, Gastrobleeding- 01/24/2019
--- NOTE | 2025-02-15 10:15 | CA_ITS ---
APPROVED REPORT EXAM: Comprehensive 2D, Doppler, and color-flow Echocardiogram Cast Shell Grinder: Gely Cazares CRT Ht: 146 ft 2 in Wt: 183lbs BSA: 20.77 BP: 141/62 mmHg Indications: COPD, Diabetes, Hyperlipidemia, Hypertension/HDD 2D Dimensions Left Atrium 3.14 cm LVEF (Pino's) 51.30 % RVID Base (AP4) 3.10 cm (M/F) 2.5-4.1 LV Volume 107.90 mL LVOT 2.22 cm (M/F) 1.5-2.5 LA Volume 29.00 mL LA Volume Index 15.80 mL/m2 (M/F) 16-34 EF AP4 48.50 % EF AP2 55.7 % EF BP 51.3 % GL Strain -10.9 % M-Mode Dimensions RVDd 3.14 cm (0.9-2.6) LVDd 5.11 cm (3.5-5.7) Ao Diam 3.88 cm (2.0-3.7) LVDs 3.74 cm (3.5-5.7) IVSd 1.74 cm (0.6-1.1) PWd 1.32 cm (0.6-1.1) EF (Teich) 52.10% FS 26.80% EDV (Teich) 124.40 mL TAPSE 1.79 (<1.7) ESV (Teich) 59.60 mL LV Diastology E Decel Time 211 (160-240 msec) E/A Ratio 0.95 MED E' 5.9 (>= 7 cm/sec) MED A' 14.40 cm/s E'/MED E' Ratio 11.78 (<= 14) LAT E' 6.9 (>= 10 cm/sec) LAT A' 11.70 cm/s E/LAT E' Ratio 10.07 (<= 14) Aortic Valve AoV Peak Eugenio. 114.0 (50-130 cm/s) AI PHT 313.00 ms AO Peak GR. 5.20 mmHg Mitral Valve MV E Max Eugenio. 69.0 (40-130 cm/s) MV A Velocity 73.0 (40-130 cm/s) E/A Ratio 0.95 MV Decel. Time 211 (160-240 ms) Tricuspid Valve TR P. Velocity 262.00 cm/s RAP Estimate 10.00 mmHg RVSP 37.60 mmHg Left Ventricle The left ventricle is normal size. The left ventricular systolic function is normal. The left ventricular ejection fraction is within the normal range. There is increased LV wall thickness. There is normal LV segmental wall motion. Transmitral Doppler flow pattern suggests impaired LV relaxation. LVEF is 55%. Right Ventricle Right ventricle is mildly dilated. The right ventricular systolic function is normal. Atria Left atrium is mildly dilated. Right atrium is mildly dilated. There is no Doppler evidence of interatrial shunt. Aortic Valve The aortic valve is mildly thickened. Mild aortic regurgitation. There is no aortic valvular stenosis. Mitral Valve The mitral valve is normal in structure. No evidence of mitral valve stenosis. Trace mitral regurgitation. Tricuspid Valve Tricuspid valve is grossly normal in structure and function. Trace tricuspid regurgitation. There is insufficient TR jet to estimate RVSP. Pulmonic Valve The pulmonary valve is normal in structure. Trace pulmonic regurgitation. Great Vessels The aortic root is normal in size. IVC is normal in size and collapses >50% with inspiration. Pericardium There is no pericardial effusion. Other Information Study Quality: Fair Conclusion Normal biventricular systolic function. Mild RV dilation. Mild biatrial dilation. No significant valvular stenosis or regurgitation. Electronically signed by : Anamaria Gillette MD 02/18/2025 09:31:14
== END 2025-02-15 23:59 | disposition home or self-care (01) ==
LOC: RT 09:44
PROVIDERS: PCP Family Medicine; Visit Provider Physician Assistant
DX: I11.9 Hypertensive heart disease without heart failure (principal); I51.89 Other ill-defined heart diseases; J44.9 Chronic obstructive pulmonary disease, unspecified; E78.5 Hyperlipidemia, unspecified; E11.9 Type 2 diabetes mellitus without complications
CPT/HCPCS: 93306

== ENCOUNTER 2025-03-22 07:24 | Outpatient (CLI) | payer MEDICARE, SELFPAY ==
--- OUTSIDE RECORDS SUMMARY | 2025-01-29 11:00 | XMS_ITS ---
[facility] Address [address] [place] [id number] Care Team Providers Care Tip Finisher Name Role Phone Madelyn Hinesian Primary Care Provider [phone] Allergies No Known Allergies Results Component Value Reference Range Notes CBC Fingerstick (in house) Reviewed date:01/29/2025 04:59:54 PM Interpretation: Performing Lab: Notes/Report: wbc 13.8 3.5 - 10 lym 8.1 15 - 50 mid 2.5 2 - 15 gran 89.4 35 - 80 rbc 4.15 3.5 - 5.5 hgb 12.7 11.5 - 16.5 hct 39.0 35 - 55 mcv 93.8 75 - 100 mch 30.6 25 - 35 mchc 32.6 31 - 38 plat 162 100 - 400 REASON FOR VISIT congestion,coughing Medications Medication SIG (Take, Route, Frequency, Duration) Notes Start Date End Date Status metFORMIN HCl ER 500 MG 2 Tablets Orally Once a day; Duration: 90 days Active Pantoprazole Sodium 40 mg 1 tablet Orall y Once a day; Duration: 90 days Active Rosuvastatin Calcium 20 MG 1 tab(s) oral ly once a day; Duration: 90 days Active Portable Oxygen portable with conserving device as needed as needed COPD 12/30/2024 Active Trelegy Ellipta 100-62.5-25 MCG/ACT 1 puff Inhalation Once a day 11/17/2024 Active Gabapentin 600 MG 1 tablet Orally Two times a day; Duration: 30 day(s) 09/14/2024 Active Nitroglycerin 0.4 MG/SPRAY 1 spray(s) ahn blingually every 5 minutes as needed Active Xarelto 2.5 MG TAKE 1 TABLET TWICE DAILY; Duration: 90 Active Spironolactone 50 MG TAKE 1 TABLET EVERY DAY; Duration: 90 Active Furosemide 20 MG TAKE 2 TABLETS TWICE DAILY; Duration: 90 Active Ferrous Gluconate 324 (38 Fe) MG 1 tab(s) orally once a day 02/13/2019 Active Multivitamin - 1 tab(s) orally once a day Active Viagra 100 MG 1 tab(s) orally once a day as needed 10/13/2013 Active Niacin ER 500 MG 1 cap(s) orally once a day (at bedtime) 11/06/2016 Active Aspirin 81 MG 1 tablet Orally Once a day; Duration: 30 day(s) Active Losartan Potassium 50 MG 1 tab(s) orally once a day; Duration: 90 days Active Promethazine-DM 6.25-15 MG/5ML 5 mL as needed Orally every 6 hrs 01/29/2025 Active Zithromax Z-Rio 250 MG as directed Orall y daily; Duration: 5 days 01/29/2025 Active predniSONE 20 MG 1 tablet with food o r milk Orally twice a day; Duration: 5 days 01/29/2025 Active Problems Problem Type SNOMED Code ICD Code Onset Dates Problem Status W/U Status Risk Notes Problem COPD exacerbatio n (J44.1) Active confirmed Vital Signs Weight 185.2 lbs 01/29/2025 Blood pressure systolic 110 mm Hg 01/30/20 25 Blood pressure diastolic 60 mm Hg 025 Heart Rate 60 /min 01/29/2025 Height 64 in 01/29/2025 BMI 31.79 kg/m2 01/29/2025 Encounters Encounter Location Date Provider Diagnosis [facility] [address] [phone] 01/29/2025 Morris Hines COPD exacerbation J4 4.1 Assessments Encounter Date Diagnosis (ICD Code) Assessment Notes Treatment Notes Treatment Clinical Notes Section Notes 01/29/2025 COPD exacerbation (ICD-10 - J44.1) Patient declines hospital admission. He will increase supplemental oxygen to 3 L/min for a few days. He will call with a progress report Plan Of Treatment Medication Medication Name Sig Start Date Stop Date Notes Promethazine-DM 6.25-15 MG/5ML 5 mL as n eeded Orally every 6 hrs 01/29/2025 Zithromax Z-Rio 250 MG as directed Orall y daily; Duration: 5 days 01/29/2025 predniSONE 20 MG 1 tablet with food o r milk Orally twice a day; Duration: 5 days 01/29/2025 Treatment Notes Assessment Notes COPD exacerbation Patient declines hos pital admission. He will increase supplemental oxygen to 3 L/min for a few days. He will call with a progress report Next Appt Details Follow Up: via phone to repo rt progress, Reason: Provider Name:Morris Go landy, 03/22/2025 09:45:00 AM, [address] [place] [address] [address] [facility], [address], [place], [place], [phone], Provider Name:Morris Go landy, 06/18/2025 09:30:00 AM, [facility] [address] [facility], [address], [place], [place], [id number], Progress Notes * MEHUL MADOB: 4 (79 yo M)Acc No.[id number]:01/29/2025 Progress Notes Patient: MEHUL WEATHERS Provider: Kaylyn Hines M.D. :1945 A ge:79 Y S ex:Male Date:01/29/2025 Address:[address] [place], [id number] Subjective: * Chief Complaints: * 1 . Congestion,coughing. * HPI: E NT/respiratory: 79 year old male presents with c/o cough P t sts he has had his cough and congestion for 3 days now. c/o nasal congestion g reen drainage. * ROS: D ERMATOLOGY: no R thierno. [...] 3 vessels, done by Dr. Marie at [place] [address], Heart Cath x2 - Dr. Long 07/2016, [...] tab(s) orally once a day , Taking Nitroglycerin 0.4 MG/SPRAY Solution 1 spray(s) sublingually every 5 minutes as needed , Taking Gabapentin 600 MG Tablet 1 [...] puff Inhalation Once a day , Taking Portable Oxygen portable O2 with conserving device as needed as needed , Notes to Pharmacist: COPD, Taking Rosuvastatin Calcium 20 MG Tablet 1 tab(s) orally once a day , Taking Pantoprazole Sodium 40 mg Tablet Delayed Release 1 tablet Orally Once a day , Taking metFORMIN HCl ER 500 MG Tablet Extended Release 24 Hour 2 Tablets Orally Once a day , Taking Losartan Potassium 50 MG Tablet 1 tab(s) orally once a day , Medication List reviewed and reconciled with the patient * Allergies: N .K.D.A. Objective: * Vitals: W t: 185.2, Temp: 97.9, BP: 110/60, HR: 60, O2 Sat: 90% on 2L, Nurse: zaira, Ht: 64, BMI:31.79. * Examination: G eneral Examination: General Appearance: N AD, appears not to feel well, using a cane to assist with ambulation. H eart: R SR. L ungs: g ood air entry bilaterally, occasional b ilateral wheezes. E xtremities: t race leg edema. Assessment: * Assessment: 1. C OPD exacerbation - J44.1 (Primary) Plan: * Treatment: Value Reference Range w bc 13.8 3.5 - 10 * l ym 8.1 15 - 50 * m id 2.5 2 - 15 * g ran 89.4 35 - 80 * r bc 4.15 3.5 - 5.5 * h gb 12.7 11.5 - 16.5 * h ct 39.0 35 - 55 * m cv 93.8 75 - 100 * m ch 30.6 25 - 35 * m chc 32.6 31 - 38 * p lat 162 100 - 400 * Genie Kaur 01/29/2025 03:20 :04 PM EDT > Provider reviewed results while patient in office. Notes: Patient declines hospital admission. He will increase supplemental oxygen to 3 L/min for a few days. He will call with a progress report?? * Procedure Codes: G 2211 Complex e/[place], [address] CAPILLARY BLOOD DRAW, 38859 CBC WITH AUTO DIFF, 1036F TOBACCO NON-USER, G8783 BP SCR PRFRM RCMDD DEFIND SCR INTVL, G8752 MOST RECENT SYSTOLIC BP < 140MM HG, G8754 MOST RECENT DIASTOLIC BP < 90MM HG * Follow Up: v ia phone to report progress * Images: Billing Information: * Visit Code: 32105 Office Visit, Est Pt., Level 4. * Procedure Codes: G2211 Complex e/[place]. [address] CAPILLARY BLOOD DRAW. 11639 CBC WITH AUTO DIFF. 1036F TOBACCO NON-USER. G8783 BP SCR PRFRM RCMDD DEFIND SCR INTVL. G8752 MOST RECENT SYSTOLIC BP < 140MM HG. G8754 MOST RECENT DIASTOLIC BP < 90MM HG. * Electronic signature of Carmencita Hines MD on 03/22/2025 at 07:27 AM EDT Sign off status: Pending * Provider: Kaylyn Hines M.D. Date: 0 01/29/2025 Generated for Celeste amezcua/Silvana/eTransmitting on: 0 03/22/2025 07:27 AM EDT History and Physical Notes * HPI (History of Present Illness) Category Sub-Category Detail Notes Category Not es ENT/respiratory cough Pt sts he has hwang d his cough and congestion for 3 days now nasal congestion green drainage Examination Category Sub-Category Detail Notes Category Not es General Examination Heart: RSR Lungs: good air entry bilat erally, occasional bilateral wheezes Extremities: trace leg edema General Appearance: NAD, appears not to feel well, using a cane to assist with ambulation
--- OUTSIDE RECORDS SUMMARY | 2025-02-15 04:50 | XMS_ITS | Continuity of Care Document ---
Author Name [facility] Organization [facility] Care Team Providers Care Sugarcane Planter Name Role Phone [facility] Unavailable Unavailable Problems Combined list of problems from [facility] and [facility] facilities. It does not include entries that were removed or entered in error. Problem Status Onset Date Problem Type Date of Resolution Comments Source CAD - Coronary artery disease Active Condition [facility] Chronic obstructive pulmonary disease Active Condition [facility] DM - Diabetes mellitus Active Condition [facility] Exposure to potentially hazardous substance Active Condition [facility] Gastroesophageal reflux disease Active Condition [facility] H/O: pulmonary embolus Active Condition [facility] Diagnosis: ICD-10-CM I25.10 Athscl heart disease of [place] coronary artery w/o ang pctrs Active Diagnosis [facility] Diagnosis: ICD-10-CM Z65.9 Problem related to unspecified psychosocial circumstances Active Diagnosis [facility] Diagnosis: ICD-10-CM J44.9 Chronic obstructive pulmonary disease, unspecified Active Diagnosis [facility] Medications Combined list of outpatient medications from [facility] facilities.Medications provided include 1) outpatient medications from the last 15 months, and 2) patient-reported medications. Medication Details Route Status Patient Instructions Prescription Expires Prescription Number Last Dispense Date Ordering Provider Order Date Order Qty Source ACETAMINOPH EN 325MG TAB TAKE TWO TABLETS BY MOUTH TWICE A DAY ORAL ACTIVE YOUNG,TAR A JEREMY 2024 [place] [facility] APOAEQUORIN 10MG CAP/TAB TAKE 1 CAP(S)/T AB BY MOUTH DAILY ORAL ACTIVE YOUNG,TAR A JEREMY 2024 [place] [facility] ASCORBIC ACID 500MG TAB TAKE ONE TABLET BY MOUTH DAILY ORAL ACTIVE YOUNG,TAR A PENTWATER 2024 [place] [facility] ASPIRIN 81MG TAB,EC TAKE ONE TABLET BY MOUTH DAILY ORAL ACTIVE YOUNG,TAR A JEREMY 2024 [place] [facility] CHOLECALCIF HEATHER 25MCG (1,000UNIT) TAB TAKE ONE TABLET BY MOUTH DAILY ORAL ACTIVE YOUNG,TAR A JEREMY 2024 [place] [facility] FERROUS GLUCONATE 324-325MG TAB,UD TAKE ONE TABLET BY MOUTH EVERY OTHER DAY ORAL ACTIVE YOUNG,TAR A JEREMY 2024 [place] [facility] FLUTICASONE 100/UMECLID INIUM 62.5/VILANT HEATHER 25MCG/ACTUA T INH,30 INHALE 1 INHALATI ON BY MOUTH DAILY RESPIR ATORY (INHAL ATION) ACTIVE YOUNG,TAR A JEREMY 2024 [place] [facility] FUROSEMIDE 40MG TAB TAKE ONE TABLET BY MOUTH TWICE A DAY ORAL ACTIVE YOUNG,TAR A JEREMY 2024 [place] [facility] GABAPENTIN 600MG TAB TAKE ONE TABLET BY MOUTH TWICE A DAY ORAL ACTIVE YOUNG,TAR A JEREMY2024 [place] [facility] GUAIFENESIN 400MG TAB TAKE TWO TABLETS BY MOUTH THREE TIMES A DAY NEEDED FOR CHEST MUCUS/CO NGESTION ORAL 12/19/2024 [id number] YOUNG,TAR A JEREMY 2024 84 [place] [facility] KRILL OIL CAP/TAB TAKE 2 CAPS/TAB S BY MOUTH DAILY ORAL ACTIVE YOUNG,TAR A JEREMY 2024 [place] [facility] LOSARTAN 50MG TAB TAKE ONE TABLET BY MOUTH DAILY ORAL ACTIVE YOUNG,TAR A JEREMY 2024 [place] [facility] METFORMIN HCL 500MG 24HR TAB,SA TAKE TWO TABLETS BY MOUTH DAILY ORAL ACTIVE YOUNG,TAR A JEREMY 2024 [place] [facility] MULTIVITAMI NS CAP/TAB TAKE 1 CAP/TAB BY MOUTH DAILY ORAL ACTIVE YOUNG,TAR A JEREMY 2024 [place] [facility] NIACIN (SLO-NIACIN ) 500MG TAB,SA TAKE ONE TABLET BY MOUTH AT BEDTIME ORAL ACTIVE YOUNG,TAR A PENTWATER 2024 [place] [facility] NITROGLYCER IN 0.4MG/SPRAY AEROSOL 1 SPRAY (0.4MG) UNDER THE TONGUE DIRECTED NEEDED SUBLIN GUAL ACTIVE YOUNG,TAR A PENTWATER 2024 [place] [facility] PANTOPRAZOL E NA 40MG TAB,EC TAKE ONE TABLET BY MOUTH ONCE A DAY 30 MINUTES BEFORE A MEAL ORAL ACTIVE ,TAR A PENTWATER 2024 [place] [facility] RIVAROXABAN 2.5MG TAB TAKE ONE TABLET BY MOUTH TWICE A DAY TO THIN BLOOD ORAL ACTIVE 11/21/2025 [id number] YOUNG,TAR A PENTWATER 2024 180 [place] [facility] ROSUVASTATI N CA 20MG TAB TAKE ONE TABLET BY MOUTH AT BEDTIME ORAL ACTIVE YOUNG,TAR A PENTWATER 2024 [place] [facility] SPIRONOLACT ONE 25MG TAB TAKE TWO TABLETS BY MOUTH DAILY ORAL ACTIVE COBY,TAR A PENTWATER 2024 [place] [facility] ZINC 50MG (FROM SULFATE) CAP TAKE 1 CAPSULE BY MOUTH DAILY ORAL ACTIVE COBY,TAR A PENTWATER 2024 [place] [facility] Immunizations Combined list of available immunizations from the Department of Defense and [facility] facilities. Immunization Series Date Given Administered By Site Reaction Lot Number CVX Code Drug Survey Analyst Status Comments Source RSV, BIVALENT, PROTEIN SUBUNIT RSVPREF, DILUENT RECONSTITUTED , 0.5 ML, PF 2024 Martha ALBERTS RIGHT DELTO ID [id number] 305 complet ed [place], STER[place] W[place] DILUENT LOT#:[id number] EXP DATE:10/25 026. VIAL ADAPTER LOT#:[id number] EXP DATE:08/2027 [place] [facility] TDAP 2024 Martha ALBERTS LEFT DELTO ID [id number] 115 complet ed [place], [place] [facility] PNEUMOCOCCAL CONJUGATE PCV20, POLYSACCHARID E [id number] CONJUGATE, ADJUVANT, PF 2 2022 216 complet ed HISTORICA L INFORMATI ON - FROM OTHER REGISTRY, [place] [facility] COVID-19 (MODERNA), MRNA, LNP-S, BIVALENT, PF, 50 MCG/0.5 ML OR 25MCG/0.25 ML DOSE 4 2021 229 complet ed HISTORICA L INFORMATI ON - FROM OTHER REGISTRY, [place] [facility] INFLUENZA, HIGH-DOSE, QUADRIVALENT, PF 3 2021 197 complet ed HISTORICA L INFORMATI ON - FROM OTHER REGISTRY, [place] [facility] PNEUMOCOCCAL POLYSACCHARID E PPV23 2020 33 complet ed HISTORICA L INFORMATI ON - FROM OTHER REGISTRY, [place] [facility] INFLUENZA, HIGH-DOSE, QUADRIVALENT, PF 2 2020 197 complet ed HISTORICA L INFORMATI ON - FROM OTHER REGISTRY, [place] [facility] COVID-19 (MODERNA), MRNA, LNP-S, PF, 100 MCG/0.5ML DOSE OR 50 MCG/0.25ML DOSE 3 2020 207 complet ed HISTORICA L INFORMATI ON - FROM OTHER REGISTRY, [place] [facility] COVID-19 (MODERNA), MRNA, LNP-S, PF, 100 MCG/0.5ML DOSE OR 50 MCG/0.25ML DOSE 2 2020 207 complet ed HISTORICA L INFORMATI ON - FROM OTHER REGISTRY, [place] [facility] COVID-19 (MODERNA), MRNA, LNP-S, PF, 100 MCG/0.5ML DOSE OR 50 MCG/0.25ML DOSE 1 2020 207 complet ed HISTORICA L INFORMATI ON - FROM OTHER REGISTRY, [place] [facility] INFLUENZA, HIGH-DOSE, TRIVALENT, PF 1 2019 135 complet ed HISTORICA L INFORMATI ON - FROM OTHER REGISTRY, [place] [facility] PNEUMOCOCCAL POLYSACCHARID E PPV23 1 1996 33 complet ed HISTORICA L INFORMATI ON - FROM OTHER REGISTRY, [place] [facility] Results Combined list of recent chemistry, [...] 2024 10:36 AM Reporting Lab: JESSICA RIP [address] [address] Performing Lab: JESSICA ERWIN [address] [address] [facility] PANEL 1 UREA NITROGEN [MASS/VOLUM E] [...] Nov 19, 2024 10:36 AM Reporting Lab: [place] [id number] [facility] [address] Performing Lab: [place] [address] [facility] [address] [facility] PANEL 1 GLUCOSE [MASS/VOLUM E] IN [...] 2024 10:36 AM Reporting Lab: JESSICA ERWIN [address] [address] Performing Lab: JESSICA ERWIN [address] [address] [facility] PANEL 1 SODIUM [MOLES/VOLU ME] IN [...] 2024 10:36 AM Reporting Lab: JESSICA ERWIN [address] [address] Performing Lab: JESSICA ERWIN [address] [address] [facility] PANEL 1 POTASSIUM [MOLES/VOLU ME] IN [...] 2024 10:36 AM Reporting Lab: JESSICA ERWIN [address] [address] Performing Lab: JESSICA ERWIN [address] [address] [facility] PANEL 1 CHLORIDE [MOLES/VOLU ME] IN [...] 2024 10:36 AM Reporting Lab: JESSICA ERWIN [address] [address] Performing Lab: JESSICA ERWIN [address] [address] [facility] PANEL 1 CARBON DIOXIDE, TOTAL [MOLES/VOLU [...] 2024 10:36 AM Reporting Lab: JESSICA ERWIN [address] [address] Performing Lab: JESSICA ERWIN [address] [address] [facility] PANEL 1 CALCIUM [MASS/VOLUM E] IN [...] 2024 10:36 AM Reporting Lab: JESSICA ERWIN [address] [address] Performing Lab: JESSICA ERWIN [address] [address] [facility] PANEL 1 ANION GAP 3 IN [...] 2024 10:36 AM Reporting Lab: JESSICA ERWIN [facility] [address] [facility] [address] Performing Lab: JESSICA ERWIN [facility] [address] [facility] [address] [facility] PANEL 1 GLOMERULAR FILTRATION RATE/1.73 SQ [...] 2024 10:36 AM Reporting Lab: JESSICA ERWIN [facility] [address] [facility] [address] Performing Lab: JESSICA ERWIN [facility] [address] [facility] [address] [facility] PANEL 2 PROTEIN [MASS/VOLUM E] IN [...] 19, 2024 10:36 AM Reporting Lab: [place] [address] [address] Performing Lab: ELZBIETA[place] [address] [address] [facility] PANEL 2 ALBUMIN [MASS/VOLUM E] IN [...] 2024 10:36 AM Reporting Lab: JESSICA ERWIN [address] [address] Performing Lab: JESSICA ERWIN [address] [address] [facility] PANEL 2 BILIRUBIN.T OTAL [MASS/VOLUM E] [...] 2024 10:36 AM Reporting Lab: JESSICA ERWIN [address] [address] Performing Lab: JESSICA ERWIN [address] [address] [facility] PANEL 2 ASPARTATE AMINOTRANSF ERASE [ENZYMATIC [...] 2024 10:36 AM Reporting Lab: JESSICA ERWIN [address] [address] Performing Lab: JESSICA ERWIN [address] [address] [facility] PANEL 2 ALANINE AMINOTRANSF ERASE [ENZYMATIC [...] 2024 10:36 AM Reporting Lab: JESSICA ERWIN [address] [address] Performing Lab: JESSICA ERWIN [address] [address] [facility] PANEL 2 ALKALINE PHOSPHATASE [ENZYMATIC ACTIVITY/VO [...] 2024 10:36 AM Reporting Lab: JESSICA ERWIN [address] [address] Performing Lab: JESSICA ERWIN [address] [address] [facility] PANEL 2 BILIRUBIN.D IRECT [MASS/VOLUM E] [...] 2024 10:36 AM Reporting Lab: JESSICA ERWIN [address] [address] Performing Lab: JESSICA ERWIN [address] [address] [facility] B12 VITAMIN COBALAMIN (VITAMIN B12) [MASS/VOLUM [...] Nov 19, 2024 10:36 AM Reporting Lab: [place] [phone] Performing Lab: [place] [phone] [facility] 25-OH VITAMIN D 25-HYDROXYV ITAMIN D3 [...] Nov 19, 2024 10:36 AM Reporting Lab: [place] [phone] Performing Lab: [place] [phone] [facility] CBC/PLT LEUKOCYTES [#/VOLUME] IN BLOOD BY AUTOMATED COUNT 9.3 10*3/u L 5.0 - 10.0 11/19 Specimen Type: BLOOD No comment entered. Ordering Provider: REJI TENORIO Report Released Date/Time: Nov 19, 2024 10:36 AM Reporting Lab: [place] [phone] Performing Lab: [place] [phone] [facility] CBC/PLT ERYTHROCYTE S [#/VOLUME] IN BLOOD BY AUTOMATED COUNT 4.78 10*6/u L 4.6 - 6.2 11/19 Specimen Type: BLOOD No comment entered. Ordering Provider: REJI TENORIO Report Released Date/Time: Nov 19, 2024 10:36 AM Reporting Lab: [place] [phone] Performing Lab: [place] [phone] [facility] CBC/PLT HEMOGLOBIN [MASS/VOLUM E] IN BLOOD 14.2 g/dL 14.0 - 18.0 11/19 Specimen Type: BLOOD No comment entered. Ordering Provider: REJI TENORIO Report Released Date/Time: Nov 19, 2024 10:36 AM Reporting Lab: [place] [phone] Performing Lab: [place] [phone] [place] [address] CBC/PLT HEMATOCRIT [VOLUME FRACTION] OF BLOOD BY AUTOMATED COUNT 45.9 42.0 - 52.0 11/19 Specimen Type: BLOOD No comment entered. Ordering Provider: REJI TENORIO Report Released Date/Time: Nov 19, 2024 10:36 AM Reporting Lab: [place] [phone] Performing Lab: [place] [phone] [place] [address] CBC/PLT MCV [ENTITIC VOLUME] BY AUTOMATED COUNT 96.0 fL 80.0 - 94.0 11/19 H Specimen Type: BLOOD No comment entered. Ordering Provider: REJI TENORIO Report Released Date/Time: Nov 19, 2024 10:36 AM Reporting Lab: [place] [phone] Performing Lab: [place] [phone] [place] [address] CBC/PLT MCH [ENTITIC MASS] BY AUTOMATED COUNT 29.7 pg 27.0 - 31.0 11/19 Specimen Type: BLOOD No comment entered. Ordering Provider: REJI TENORIO Report Released Date/Time: Nov 19, 2024 10:36 AM Reporting Lab: [address] [address] Performing Lab: [place] [phone] [place] [address] CBC/PLT MCHC [MASS/VOLUM E] BY AUTOMATED COUNT 30.9 g/dL 32.0 - 36.0 11/19 L Specimen Type: BLOOD No comment entered. Ordering Provider: REJI TENORIO Report Released Date/Time: Nov 19, 2024 10:36 AM Reporting Lab: [place] [address] Performing Lab: [address] CBC/PLT PLATELETS [#/VOLUME] IN BLOOD 219 10*3/u L 150 - 450 11/19 Specimen Type: BLOOD No comment entered. Ordering Provider: REJI TENORIO Report Released Date/Time: Nov 19, 2024 10:36 AM Reporting Lab: [place] [address] Performing Lab: [address] CBC/PLT PLATELET MEAN VOLUME [ENTITIC VOLUME] IN BLOOD 9.8 fL 9.0 - 13.1 11/19 Specimen Type: BLOOD No comment entered. Ordering Provider: REJI TENORIO Report Released Date/Time: Nov 19, 2024 10:36 AM Reporting Lab: [place] [phone] Performing Lab: [address] CBC/PLT ERYTHROCYTE DISTRIBUTIO N WIDTH [ENTITIC VOLUME] BY AUTOMATED COUNT 12.9 11.0 - 16.0 11/19 Specimen Type: BLOOD No comment entered. Ordering Provider: REJI TENORIO Report Released Date/Time: Nov 19, 2024 10:36 AM Reporting Lab: [address] [address] Performing Lab: [place] [phone] [place] [address] CBC/PLT NUCLEATED ERYTHROCYTE S/100 ERYTHROCYTE S IN BLOOD 0.0 0.0 - 0.0 11/19 Specimen Type: BLOOD No comment entered. Ordering Provider: REJI TENORIO Report Released Date/Time: Nov 19, 2024 10:36 AM Reporting Lab: [address] [address] Performing Lab: JESSICA [address] [address] [facility] GLYCOHEMO GLOBIN HEMOGLOBIN A1C/HEMOGLO BIN.TOTAL IN BLOOD BY HPLC 7.0 4.4 - 5.6 11/19 H Specimen Type: BLOOD Comment: [place] guidelines for A1c interpretat ion: Glycemic control targets are based on Shared Decision Making between clinicians and patients. Criteria used to establish an A1c target recommendat ion can be found at https://www .[place].gov/ana lityandpati entsafety/ and include the use of [...] 9.27. Ref: https://ngs p.org/CAPda ta.asp. The in-house [employer] D-100 analyzer has a historical CV <= 2%. Contact the laboratory for further performance characteris tics of this assay. Ordering Provider: REJI TENORIO Report Released Date/Time: Nov 19, 2024 10:36 AM Reporting Lab: [facility] [address] [address] Performing Lab: [address] [address] [facility] LIPID PROFILE CHOLESTEROL [MASS/VOLUM E] IN [...] 2024 10:36 AM Reporting Lab: JESSICA ERWIN [address] [address] Performing Lab: JESSICA ERWIN [address] [address] [facility] LIPID PROFILE TRIGLYCERID E [MASS/VOLUM E] [...] 2024 10:36 AM Reporting Lab: JESSICA ERWIN [address] [address] Performing Lab: JESSICA ERWIN [address] [address] [facility] LIPID PROFILE CHOLESTEROL IN HDL [MASS/VOLUM [...] 2024 10:36 AM Reporting Lab: JESSICA ERWIN [address] [address] Performing Lab: JESSICA ERWIN [address] [address] [facility] LIPID PROFILE CHOLESTEROL IN LDL [MASS/VOLUM [...] 2024 10:36 AM Reporting Lab: [place] ERWIN [facility] [address] [facility] [address] Performing Lab: JESSICA ERWIN [address] [address] [facility] THYROID PROFILE THYROTROPIN [UNITS/VOLU ME] IN [...] 2024 10:36 AM Reporting Lab: [place] ERWIN [address] [address] Performing Lab: [place] ERWIN [address] [address] [facility] THYROID PROFILE FREE T4 0.92 ng/mL [...] 19, 2024 10:36 AM Reporting Lab: [place] [facility] [address] [facility] [address] Performing Lab: [address] [address] [facility] Vital Signs Combined list of inpatient and outpatient Vital Signs from Department of [facility] and [facility], ranging from 12 months to all on record, depending upon the facility. Vital Sign Value Date Comments Source SYSTOLIC BLOOD PRESSURE 127 11/19/2024 09:42:26 [facility] DIASTOLIC BLOOD PRESSURE 62 11/19/2024 09:42:26 [facility] PULSE OXIMETRY 95 11/19/2024 09:42:26 [facility] PAIN 0 11/19/2024 09:42:26 [facility] HEIGHT 62 11/19/2024 09:42:26 [facility] TEMPERATURE 98.1 11/19/2024 09:42:26 [facility] PULSE 92 11/19/2024 09[facility]42:26 [facility] RESPIRATION 18 11/19/2024 09:42:26 [facility] Encounters Combined list of: 1) Encounters from [facility] of [facility] facilities going backup to the last 18 months, not all [place] inpatient encounters are included; 2) Encounters from the Department of [facility] facilities going backup to 280 months. Location Location Details Encounter Type Encounter Number Reason For Visit Attending Provider ADM Date DC Date Status Disposition Source [facility] Outpatient Encounter [id number] 07/15 [place] [facility] Outpatient Encounter [id number] 11/12 [place] [facility] OFFICE O/P [place] 60 MIN [id number] Diagnos is: ICD-10- CM J44.9 Chronic obstruc tive pulmona ry disease , unspeci fied ERJI TENORIO 11[facility]19 [place] [facility] [id number] Diagnos is: ICD-10- CM 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 MACK Baker 11/19 [place] [facility] ELECTROCAR DIOGRAM COMPLETE [id number] Diagnos is: ICD-10- CM I25.10 Athscl heart disease of [place] coronar y artery w/o ang pctrs YAMIL,COMMUNICATION TECHNICIAN IG A 11/19 [place] [facility] NQHP OL DIG ASSMT&MGMT 5-10 [id number] Diagnos is: ICD-10- CM I25.10 Athscl heart disease of [place] coronar y artery w/o ang pctrs DENISEAND REW L 11/20 [place] [facility] Outpatient Encounter [id number] 12/10 [place] [facility] Outpatient Encounter [id number] 12/21 [place] [facility] Outpatient Encounter [id number] 12/23 [place] [facility] Social History Combined list of available smoking, tobacco, and other social history from Department of Defense and Veterans Affairs facilities. Social History Type Response Date Comment [facility] Tobacco smoking status NHIS [place]-TOBACCO USE FORMER CIGARETTES 11/19/2024 [facility] History of tobacco use [place]-TO[place]AC[place] NEVER USED OTHER TYPE 11/19/2024 [facility] Advance Directives List of completed, amended, or rescinded Advance Directives on record at Department of [facility] facilities. An actual copy of the Directive is not included. Date Advance Directive Provider Source 12/21/2024 ADVANCE DIRECTIVE DISCUSSION Thu MULLER [facility] 12/08/2024 ADVANCE DIRECTIVE BERT WALKER [facility]
--- OUTSIDE RECORDS SUMMARY | 2025-02-25 05:45 | XMS_ITS ---
Author Organization [facility] Address [address] [facility] [address] [facility] [address] [place] [id number] Care Team Providers Care Recreation Teacher Name Role Phone Morris Hines Primary Care Provider [phone] REASON FOR VISIT checkup Encounters Encounter Location Date Provider Diagnosis [facility] [address] [place], [place] [id number] 02/25/2025 Morris Hines Plan Of Treatment Next Appt Details Provider Name:Morris bill, 03/22/2025 09:45:00 AM, [address] [facility], [address], [place], [place], [id number], Provider Name:Morris bill, 06/18/2025 09:30:00 AM, [address] [facility] [address] [facility], [address], [place], [place], [id number], Progress Notes * MEHUL MADOB: [birth year] (79 yo M)Acc No.[id number]:02/25/2025 Progress Notes Patient: MEHUL WEATHERS Provider: Kaylyn Hines M.D. :1945 A ge:79 Y S ex:Male Date:02/25/2025 Address:[address] [id number] Subjective: * Chief Complaints: * 1 . Checkup. * Medical History: Objective: * Vitals: Assessment: Plan: * Treatment: * Images: Billing Information: * Visit Code: * Procedure Codes: * Electronic signature of Carmencita Hines MD on 03/22/2025 at 07:27 AM EDT Sign off status: Pending * Provider: Kaylyn Hines M.D. Date: 0 02/25/2025 Generated for Celeste amezcua/Silvana/Jose on: 03/22/2025 07:27 AM EDT
--- OUTSIDE RECORDS SUMMARY | 2025-03-22 07:27 | XMS_ITS | Clinical Summary ---
Author Organization [facility] Address [address] [place] [address] Care Team Providers Care Surface Room Shop Optician Name Role Phone Morris Hines MD Primary Care Provider [phone] Allergies No known active allergies Medications Aspirin [...] day. 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 MEDICARE Care Teams Surface Room Shop Optician Relationship Specialty Start Date End Date Morris Hines MD [address] [place] [address] PCP - General 01/06/21
--- OUTSIDE RECORDS SUMMARY | 2025-03-22 07:28 | XMS_ITS | Patient Health Record ---
[facility] Address [address] [facility] [address] [place] [id number] Care Team Providers Care Cdl Company Driver Name Role Phone Morris Hines Primary Care Provider [phone] Allergies No Known Allergies Results Component Value [...] - 38 plat 162 100 - 400 Glucose (In-House) Reviewed date:08/28/2024 10:17:17 AM Interpretation:190 Performing Lab: Notes/Report: 190 blood glucose 190 74 - 106 mg/dL Glycohemoglobin A1c (in hous e) Reviewed date:08/28/2024 10:17:17 AM Interpretation:7.3 Performing Lab: Notes/Report: 7.3 glycohemoglobin 7.3% 5 - 6.5 % P-Comprehensive Metabolic Pa raulito (CMP) Reviewed date:08/28/2024 10:17:17 AM Interpretation:gluc 166 Performing Lab: Notes/Report: Test performed by [facility] [address] [place] [address] , [address], [place] [address] Luis Eduardo Mayo MD, Monotype Operator CLIA: [id number] Sodium 141 135-145 mmol/L Potassium 4.4 3.5-5.3 [...] 39 Performing Lab: Notes/Report: Test performed by [facility] [address] [place] [address] , [place] [address] Luis Eduardo Mayo MD, Monotype Operator CLIA: [id number] Cholesterol 108 <200 mg/dL Triglycerides 192 <150 [...] Interpretation:Normal Performing Lab: Notes/Report: Test performed by [facility] [address] , [place] [address] Luis Eduardo Mayo MD, Monotype Operator CLIA: [id number] Phosphorus 3.3 2.5-4.5 mg/dL H-CBC Reviewed date:11/05/2024 11:10:47 AM Interpretation: Performing Lab: Notes/Report: WBC 9.2 4.8-10.8 K/mm3 Delta: 16.4 o n 11/04/24-529 RBC 3.72 4.60-6.20 M/mm3 HGB 11.0 14.1-18.0 [...] 0.1 0.0-0.4 K/mm3 BA# 0.0 0-0.2 K/mm3 H-CBC Reviewed date:11/04/2024 08:36:00 AM Interpretation: Performing [...] 0.0 0.0-0.4 K/mm3 BA# 0.0 0-0.2 K/mm3 H-DIFF Reviewed date:11/04/2024 08:36:00 AM Interpretation: Performing Lab: Notes/Report: MDIFF MANUAL DIFFERENTIAL MANUAL DIFF TCC 100 NEUT%M 84 42-76 % LYMPH%M 13 10-50 % MONO%M 3 2-9 % PLTE Normal RM Normal H-Sputum Culture with Gram S hari Reviewed date:11/06/2024 10:09:01 AM Interpretation: Performing Lab: Notes/Report: GS Gram Stain: GS <10 White Blood Cells/LPF GS <10 Epithelial Cells / LPF GS Few Gram Positive Cocci in Chains CUSPU Normal Respiratory Marisela H-BMP Reviewed date:11/04/2024 08:36:00 AM Interpretation: Performing [...] 127 74-100 mg/dl CA 8.6 8.4-10.2 mg/dl H-BMP Reviewed date:11/05/2024 11:10:47 AM Interpretation: Performing Lab: Notes/Report: NA 137 136-145 mmol/L K 4.2 3.5-5.1 mmoL/L CL 100 98-107 mmol/L CO2 31 22.0-30.0 mmol/L GAP 10.2 5-15 mEq/L BUN 12 9-20 mg/dl Delta: 18 on 11/04/24 CREATT 0.80 0.66-1.25 mg/dl CRCLE 72 50-200 mL/min GFRAA 113 >60 ML/MIN EGFR 93 >60 ml/min GLU 128 74-100 mg/dl CA 8.8 8.4-10.2 mg/dl P-CBC With Platelet No Diffe rential Reviewed date:08/28/2024 10:17:17 AM Interpretation:Normal Performing Lab: Notes/Report: Test performed by [facility] [address] [place] [address] , [address], [place] [address] Luis Eduardo Mayo MD, Monotype Operator CLIA: [id number] WBC 10.2 3.8-11.5 K/uL Red Blood Cell Count (RBC) 4.61 4.20-5.70 M/mm3 Hemoglobin (Hgb) 14.3 13.1-17.5 gm/dL Hematocrit (HCT) 43.0 39.0-51.0 % MCV 93.3 79.0-99.0 fL MCH 31.0 26.9-35.0 pg MCHC 33.3 30.4-34.8 g/dL RDW 43.5 38.2-53.0 fL Platelet Count 184 137-397 K/cumm Overnight Oximetry Reviewed date:01/01/2025 08:42:04 AM Interpretation: Performing Lab: Notes/Report: Reason For Referral Diagnosis 1 Acute respiratory fa ilure with hypoxia (J96.01) Diagnosis 2 Chronic obstructive pulmonary disease, unspecified COPD type (J44.9) Referral Organization [facility] Referring Provider First Name Morris Referring Provider Last Name Donny Referring Provider Speciality [facility] Referred Organization [facility] Referred Provider Tello Wilks Referred Address [address] [place], [place] [id number], Referred Provider Specialty Pulmonary Di seases General [...] once a day; Duration: 90 days Active Multivitamin - 1 tab(s) orally once a day Active metFORMIN HCl ER 500 MG 2 Tablets Orally Once a day; Duration: 90 days Active Promethazine-DM 6.25-15 MG/5ML 5 mL as needed Orally every 6 hrs 01/29/2025 Active Viagra 100 MG 1 tab(s) orally once a day as needed 10/13/2013 Active Pantoprazole Sodium 40 mg 1 tablet Orall y Once a day; Duration: 90 days Active Zithromax Z-Rio 250 MG as directed Orall y daily; Duration: 5 days 01/29/2025 Active Niacin ER 500 MG 1 cap(s) orally once a day (at bedtime) 11/06/2016 Active Rosuvastatin Calcium 20 MG 1 tab(s) oral ly once a day; Duration: 90 days Active predniSONE 20 MG 1 tablet with food o r milk Orally twice a day; Duration: 5 days 01/29/2025 Active Aspirin 81 MG 1 tablet Orally Once a day; Duration: 30 day(s) Active Portable Oxygen portable with conserving device as needed as needed COPD 12/30/2024 Active Trelegy Ellipta 100-62.5-25 MCG/ACT 1 puff Inhalation Once a day 11/17/2024 Active Xarelto 2.5 MG TAKE 1 TABLET TWICE DAILY; Duration: 90 Active Spironolactone 50 MG TAKE 1 TABLET EVERY DAY; Duration: 90 Active Furosemide 20 MG TAKE 2 TABLETS TWICE DAILY; Duration: 90 Active Immunizations Vaccine Route Administration Date Status Comme nts xFlu shot-36 months and older IM Intramuscular 07/21/2005 Administered xFlu shot-36 months and older IM Intramuscular 07/25/2007 Administered xFlu shot-36 months and older IM Intramuscular 07/02/2008 Administered Prevnar (PCV20) IM Intramuscular 08/31/2022 Administered Prevnar (PCV13) IM Intramuscular 10/13/2013 Administered PNEUMOVAX 23 VACCINE Unknown 06/08/1997 Administered PNEUMOVAX 23 VACCINE IM Intramuscular 10/21/2015 Administe red PNEUMOVAX 23 VACCINE IM Intramuscular 06/29/2021 Administe red Fluzone High Dose (65yr and older) IM Intramuscular 05/09/2016 Administered Fluzone High Dose (65yr and older) IM Intramuscular 06/15/2020 Administered Fluzone High Dose (65yr and older) IM Intramuscular 06/05/2021 Administered Fluzone High Dose (65yr and older) IM Intramuscular 05/23/2022 Administered Fluzone High Dose (65yr and older) IM Intramuscular 05/08/2023 Administered Fluzone High Dose (65yr and older) IM Intramuscular 05/15/2024 Administered COVID 19 Moderna Unknown 09/22/2020 Administered COVID 19 Moderna Unknown 10/20/2020 Administered COVID 19 Moderna Unknown 05/18/2021 Administered Problems Problem Type SNOMED Code ICD Code Onset Dates Problem Status W/U Status Risk Notes Problem Hypercalcemia (70284338) Hypercalcemia (E83.52) Active confirmed Problem Essential hypertension (74397180) Essential hypertension (I10) Active confirmed Problem Duodenal ulcer (48445718) Duodenal ulcer (K26.9) Active confirmed Problem BMI 30+ - obesity (465574848) BMI 32.0-32.9,adult (Z68.32) Active confirmed Problem Acute exacerbation of chronic obstructive airways disease (717517853) COPD exacerbation (J44.1) Active confirmed Problem Lumbar spinal stenosis (61860219) Lumbar spinal stenosis (M48.06) Active confirmed Problem Hyperglycemia due to type 2 diabetes mellitus (980710303755290) Type 2 diabetes mellitus with hyperglycemia (E11.65) Active confirmed Problem Sciatica (47302261) Lumbago with sciatica, right side (M54.41) Active confirmed Problem Mixed hyperlipidemia (084713736) Mixed hyperlipidemia (E78.2) Active confirmed Problem Sciatica (37344189) Lumbago with sciatica, left side (M54.42) Active confirmed Problem Vaccination given (809453616) Encounter for immunization (Z23) Active confirmed Problem Pulmonary nodule (058869644) Pulmonary nodule (R91.1) Active confirmed Problem Degeneration of lumbar intervertebral disc (47736698) Lumbar degenerative disc disease (M51.36) Active confirmed Problem History of polyp of colon (situation) (446879705) History of colon polyps (Z86.010) Active confirmed Problem COPD - Chronic obstructive pulmonary disease (98748717) Chronic obstructive pulmonary disease, unspecified COPD type (J44.9) Active confirmed Problem Atherosclerotic heart disease of [place] coronary artery without angina pectoris (249663915558026) Coronary artery disease involving [place] coronary artery of [place] heart without angina pectoris (I25.10) Active confirmed Problem Gastroesophageal reflux disease (684772055) Gastroesophageal reflux disease, esophagitis presence not specified (K21.9) Active confirmed Problem Obesity (191788526) Non morbid obesity, unspecified obesity type (E66.9) Active confirmed Problem Erectile dysfunction (disorder) (042590714) Erectile dysfunction, unspecified erectile dysfunction type (N52.9) Active confirmed Problem Sciatica (52670601) Right sided sciatica (M54.31) Active confirmed Problem Diabetic peripheral neuropathy (502981121) Diabetic peripheral neuropathy (E11.42) Active confirmed Problem Type II diabetes mellitus without complication (587544253) Type 2 diabetes mellitus without complication, without long-term current use of insulin (E11.9) Active confirmed Problem Arthropathy of lumbar facet joint (013637637) Lumbar facet arthropathy (M12.88) Active confirmed Problem Body mass index 30.00 to 34.99 (403120908606718) Body mass index (BMI) of 34.0-34.9 in adult (Z68.34) Active confirmed Problem Obesity (919385256) Non morbid o besity (E66.9) Active confirmed Problem Gastroduodenitis (626791238) Gastritis, presence of bleeding unspecified, unspecified chronicity, unspecified gastritis type (K29.70) Active confirmed Problem Chronic kidney disease stage 3 (disorder) (458275586) CKD (chronic kidney disease) stage 3, GFR 30-59 ml/min (N18.3) Active confirmed Problem Chronic kidney disease stage 3 (disorder) (953263661) Stage 3 chronic kidney disease, unspecified whether stage 3a or 3b CKD (N18.30) Active confirmed Problem Chronic kidney disease stage 3A (disorder) (283713865) Stage 3a chronic kidney disease (CKD) (N18.31) Active confirmed Vital Signs Heart Rate 60 /min 01/29/2025 Blood pressure diastolic 60 mm Hg 01/29/2025 Height 64 in 01/29/2025 Blood pressure systolic 110 mm Hg 01/29/2025 Weight 185.2 lbs 01/29/2025 BMI 31.79 kg/m2 01/29/2025 Encounters Encounter Location Date Provider Diagnosis [facility] [address] [place], [place] [id number] 05/15/2024 Morris [facility] Encounter for immunization Z23 [facility] [address] [place], [place] [id number] 08/27/2024 Morris [facility] Essential hypertensi on I10 ; Mixed hyperlipidemia E78.2 ; Dizziness R42 ; Type 2 diabetes mellitus without complication, without long-term current use of insulin E11.9 and Stage 3a chronic kidney disease (CKD) N18.31 [facility] [address] [place], [place] [id number] 11/17/2024 Morris [facility] Community acquired pneumonia, bilateral J18.9 ; Acute respiratory failure with hypoxia J96.01 and Chronic obstructive pulmonary disease, unspecified COPD type J44.9 [facility] [address] [place], [place] [id number] 12/18/2024 Morris [facility] Chronic obstructive pulmonary disease, unspecified COPD type J44.9 ; Acute hypoxemic respiratory failure J96.01 ; Non morbid obesity E66.9 and BMI 32.0-32.9,adult Z68.32 [facility] [address] [place], [place] [id number] 01/29/2025 Morris [facility] COPD exacerbation J4 4.1 [facility] [address] [place], [place] [id number] 08/28/2024 Morris [facility] [address] [place] [id number] 09/14/2024 Morris [facility] [address] [place] [id number] 11/06/2024 Morris [facility] [address] [place] [id number] 12/29/2024 Morris [facility] [address] [place], [place] [id number] 01/01/2025 Morris [facility] Type 2 diabetes robi itus without complication, without long-term current use of insulin E11.9 [facility] [address] [place], [place] [id number] 01/12/2025 Morris [facility] Mixed hyperlipidemia E78.2 Assessments Encounter Date Diagnosis (ICD Code) Assessment Notes Treatment Notes Treatment Clinical Notes Section Notes 01/01/2025 Type 2 diabetes mellitus without complication, without long-term current use of insulin (ICD-10 - E11.9) 12/18/2024 Chronic obstructive pulmonary disease, unspecified COPD type (ICD-10 - J44.9) 12/18/2024 Acute hypoxemic respiratory failure (ICD-10 - J96.01) 11/17/2024 Acute respiratory failure with hypoxia (ICD-10 - J96.01) Continue supplemental oxygen use 08/27/2024 Essential hypertension (ICD-10 - I10) Plan to decrease Lasix use and monitor symptoms. He will call with a progress report in a few days. 08/27/2024 Mixed hyperlipidemia (ICD-10 - E78.2) 11/17/2024 Community acquired pneumonia, bilateral (ICD-10 - J18.9) Improved 01/12/2025 Mixed hyperlipidemia (ICD-10 - E78.2) 05/15/2024 Encounter for immunization (ICD-10 - Z23) 01/29/2025 COPD exacerbation (ICD-10 - J44.1) Patient declines hospital admission. He will increase supplemental oxygen to 3 L/min for a few days. He will call with a progress report 08/27/2024 Dizziness (ICD-10 - R42) 11/17/2024 Chronic obstructive pulmonary disease, unspecified COPD type (ICD-10 - J44.9) 12/18/2024 Non morbid obesity (ICD-10 - E66.9) 12/18/2024 BMI 32.0-32.9,adult (ICD-10 - Z68.32) 08/27/2024 [...] 03/22/2025 09:45:00 AM, [address], [place], [place], [id number], Provider Name:Morris bill, 06/18/2025 09:30:00 AM, [address], [address], [place], [place], [id number], Insurance Providers Payer Name Payer Address Payer Phone Subscriber Number Group Number Insured Name Patient Relationship to Insured Coverage Start Date Coverage End Date [employer] (MEDICAR E) [place] [address] [address] [place] [address] [id number] MEHUL MA Self - patient is the [...] 3 vessels, done by Dr. Marie at [facility] 2000 Heart Cath x2 - Dr. Long 07/2016 EKG 10/17/2016 Dr. Kwon - Colonoscopy 07/2016, 017 Excision of anal polyp - Dr. Kwon 7 Cardiac Stent x2 02/11/2018 EGD 01/2019 Hospitalization History Reason Date(Month/Year) LINDSEY, Gastrobleeding- 01/24/2019
--- NOTE | 2025-03-22 07:30 | CT_ITS ---
FINAL REPORT TECHNIQUE: Thin section axial images were obtained from the lung apices through the upper abdomen without contrast. This study was performed with techniques to keep radiation doses as low as reasonably achievable (ALARA). Individualized dose reduction techniques using automated exposure control or adjustment of mA and/or kV according to the patient's size were employed. CLINICAL HISTORY: nodule COMPARISON: CTA 11/02/2024 FINDINGS: There is no mediastinal, hilar, or axillary lymphadenopathy. No pleural or pericardial effusion. Esophagus is dilated and contains fluid and debris. Evidence of prior granulomatous disease. Significant improvement of previously noted left upper lobe nodular opacities, most have completely resolved. Left upper lobe 6 mm nodule on series 2, image 29. Lungs are otherwise clear. Limited, unenhanced evaluation of the upper abdomen is without acute abnormality. There is no acute osseous abnormality. IMPRESSION: Near-complete resolution previously seen left upper lobe nodular opacities. Residual 6 mm nodule. Recommend follow-up in 3-6 months. Dilated fluid-filled esophagus increases risk of aspiration. Reviewed, Interpreted and Dictated by Mallika Thomas MD Transcribed by Maddie May Authenticated and . [facility]
[2025-03-22 09:15] VITALS: PULSE 71; PULSE 77
[2025-03-22] MEDS: ALBUTEROL 0.083% 2.5 MG/3 ML NEB IH (09:15)
== END 2025-03-22 23:59 | disposition home or self-care (01) ==
LOC: RAD 07:24
PROVIDERS: PCP Family Medicine; Visit Provider Internal Medicine Pulmonary Disease
DX: K22.89 Other specified disease of esophagus (principal); R91.1 Solitary pulmonary nodule; R91.8 Other nonspecific abnormal finding of lung field; R06.09 Other forms of dyspnea; R09.02 Hypoxemia
CPT/HCPCS: 71250; 94060; 94618; 94640; 94726; 94729